=== PATIENT | male | born 1950 | race Caucasian/White ===

== ENCOUNTER 2020-06-05 08:53 | Outpatient (REF) | payer MEDICARE, MEDICAID, OTHER, SELFPAY ==
[2020-06-05 10:22] LABS: Alanine Aminotransferase 71 U/L (0-40); Albumin Level 4.3 g/dL (3.5-5.0); Alkaline Phosphatase 90 U/L (39-117); Anion Gap 14 (12-20); Aspartate Amino Transferase 41 U/L (5-37); Bilirubin Direct 0.4 mg/dL (0.0-0.5); Bilirubin Total 0.9 mg/dL (0.0-1.0); Blood Urea Nitrogen 18 mg/dL (9-16); Calcium 9.7 mg/dL (8.4-10.2); Carbon Dioxide 30 mmol/L (22-29); Chloride 102 mmol/L (96-108); Cholesterol 131 mg/dL; Estimated Glomerular Filt Rate 56; Glucose Random 103 mg/dL (60-115); HDL Cholesterol 37 mg/dL; LDL Cholesterol Calculated 70 mg/dl; Potassium 4.5 mmol/L (3.3-5.1); Sodium 141 mmol/L (135-145); Triglycerides 121 mg/dL
== END 2020-06-05 08:54 | disposition home or self-care (01) ==
LOC: HO.LAB 08:53
PROVIDERS: PCP Internal Medicine; Visit Provider Internal Medicine
DX: I10 Essential (primary) hypertension (principal)
CPT/HCPCS: 36415; 80048; 80061; 80076

== ENCOUNTER 2020-06-28 08:38 | Outpatient (REF) | payer MEDICARE, MEDICAID, SELFPAY ==
--- NOTE | ~2020-06-28 | US_ITS ---
EXAMINATION: US ABDOMEN COMPLETE CLINICAL INFORMATION: Abnormal LFTs. COMPARISON: None TECHNIQUE: Real-time imaging of the abdominal viscera. FINDINGS: PANCREAS: The pancreas is partially obscured. ABDOMINAL AORTA: The proximal, mid, and distal segments are normal in caliber. INFERIOR VENA CAVA: Visualized portions are normal. LIVER: The liver is normal in size. The liver contour is normal. Parenchymal echogenicity is increased and slightly heterogeneous. No focal hepatic lesion. There is no intrahepatic biliary duct dilatation seen. GALLBLADDER: Normal. The gallbladder is physiologically distended without evidence of stones, sludge, polyps, wall thickening or pericholecystic fluid. COMMON BILE DUCT: Normal in caliber measuring 0.5 cm in diameter. RIGHT KIDNEY: Normal. No hydronephrosis. No renal calculi or focal parenchymal lesions. The kidney measures 10.5 cm in maximum dimension. LEFT KIDNEY: Normal. No hydronephrosis. No renal calculi or focal parenchymal lesions. The kidney measures 10.0 cm in maximum dimension. SPLEEN: Normal. The spleen measures 9.1 cm in maximum dimension. FREE FLUID: None. US/US abdomen complete IMPRESSION: Hepatic steatosis without focal lesion. The liver is slightly heterogenous. No focal lesion seen aerated Rest of the abdominal ultrasound is unremarkable
== END 2020-06-28 08:39 | disposition home or self-care (01) ==
LOC: HO.US 08:38
PROVIDERS: PCP Internal Medicine; Visit Provider Internal Medicine
DX: R79.89 Other specified abnormal findings of blood chemistry (principal)
CPT/HCPCS: 76700

== ENCOUNTER 2020-10-08 09:08 | Outpatient (REF) | payer MEDICARE, MEDICAID, OTHER, SELFPAY ==
--- NOTE | ~2020-10-08 | XR_ITS ---
EXAMINATION: XR BILATERAL HIPS WITH AP PELVIS CLINICAL INFORMATION: Left low quadrant pain. COMPARISON: None. TECHNIQUE: AP film of the pelvis and 2 views of both hips. FINDINGS: There is no evidence of acute fracture or diastases the pelvis. No suspicious bony lesions identified. Visualized bowel loops are unremarkable. Hip joint spaces are maintained. No significant degenerative change of the sacroiliac joints is appreciated. 2 views of the right hip do not demonstrate any evidence of acute fracture or dislocation. Joint spaces maintained. No lytic or sclerotic lesions are appreciated. There is no evidence of acute fracture or dislocation of the left hip. Left hip joint spaces maintained. There appears be subchondral cysts about the superior aspect of the femoral head. XR/XR hip BI w PEL1V IMPRESSION: No significant bony abnormality of the AP pelvis and both hips.
== END 2020-10-08 09:09 | disposition home or self-care (01) ==
LOC: HO.XRAY 09:08
PROVIDERS: PCP Internal Medicine; Visit Provider Internal Medicine
DX: M54.5 Low back pain (principal); R10.32 Left lower quadrant pain; G89.29 Other chronic pain
CPT/HCPCS: 73521; 99202

== ENCOUNTER → 2020-10-29 11:23 | Outpatient (BNVA) | payer MEDICARE, OTHER, SELFPAY | PROVIDERS: PCP Internal Medicine; Visit Provider Internal Medicine | DX: M54.42 Lumbago with sciatica, left side (principal); G89.29 Other chronic pain | CPT/HCPCS: Q3014 ==

== ENCOUNTER 2020-11-08 19:27 | Outpatient (REF) | payer MEDICARE, OTHER, SELFPAY ==
--- NOTE | ~2020-11-08 | MR_ITS ---
EXAMINATION: MR LUMBAR SPINE WITHOUT CONTRAST CLINICAL INFORMATION: Low back pain. COMPARISON: Plain films of the lumbar spine 12/24/2018. TECHNIQUE: MRI of the lumbar spine was obtained using routine sequences without contrast. FINDINGS: VERTEBRAL BODIES AND PARASPINAL STRUCTURES: There is a mild levoscoliosis. There is a mild retrolisthesis of L4 on L5. There is narrowing of intervertebral disc height at L5-S1. Loss of signal from the discs is seen between L2-L3 and L5-S1. There is a Schmorl's node in the inferior endplate of L2 with surrounding edematous signal. A similar, less intense Schmorl's node is seen along the inferior endplate of L4. Vertebral body heights are maintained. There are no acute fractures. Overall, marrow signal is homogenous. The urinary bladder is partially distended with a mildly thickened wall. CONUS MEDULLARIS AND CAUDA EQUINA: Normal, terminating at the level of T12-L1. The lower thoracic spinal cord appears normal. The cauda equina nerve roots and filum terminale appear normal. SPINAL LEVELS: L1-L2: The facet joints appear normal bilaterally. Disc contour is normal. There is no central stenosis or foraminal narrowing. L2-L3: There is mild bilateral facet arthropathy. There is a mild diffuse disc bulge, but there is no central stenosis and the neural foramina are patent bilaterally. L3-L4: There is mild to moderate bilateral facet arthropathy with ligamenta flava hypertrophy and facet joint effusions. There is a mild diffuse disc bulge, without central stenosis or foraminal narrowing. L4-L5: There is moderate bilateral facet arthropathy with ligamenta flava hypertrophy and facet joint effusions. There is a posterior disc protrusion extending into the right neural foramen without definite exiting nerve root impingement. There is mild narrowing of the subarticular recesses. There is no central stenosis. L5-S1: There is mild to moderate bilateral facet arthropathy. There is a posterior disc protrusion which is focally more prominent just to the left of midline without definite impingement on the S1 nerve roots. A small protrusion is seen in the inferior right neural foramen without definite exiting nerve root impingement. There is no central stenosis. MR/MR lumbar spine wo con IMPRESSION: 1. At L4-L5 there is moderate facet arthropathy, and there is a posterior disc protrusion extending into the right neural foramen without definite exiting nerve root impingement. There is mild narrowing of the bilateral subarticular recesses, but there is no central stenosis. 2. At L5-S1 there is facet arthropathy and there is a posterior disc protrusion, which is focally more prominent just to the left of midline. There is no impingement on the right exiting L5 or traversing S1 nerve roots. There is no central stenosis.
== END 2020-11-08 19:28 | disposition home or self-care (01) ==
LOC: HO.MRI 19:27
PROVIDERS: PCP Internal Medicine; Visit Provider Anesthesiology
DX: M54.5 Low back pain (principal)
CPT/HCPCS: 72148

== ENCOUNTER → 2020-11-26 11:23 | Outpatient (BNVA) | payer MEDICARE, OTHER, SELFPAY | PROVIDERS: PCP Internal Medicine; Visit Provider Internal Medicine | DX: M54.16 Radiculopathy, lumbar region (principal); M47.817 Spondylosis without myelopathy or radiculopathy, lumbosacral region | CPT/HCPCS: Q3014 ==

== ENCOUNTER 2020-12-08 06:36 | Outpatient (REF) | payer MEDICARE, OTHER, SELFPAY ==
--- NOTE | ~2020-12-08 | FL_ITS ---
EXAMINATION: XR FLUOROSCOPY WITH IMAGES CLINICAL INFORMATION: M47.817 - Spondylosis without myelopathy or radiculopathy COMPARISON: MR lumbar spine 11/08/2020 TECHNIQUE: Fluoroscopy performed by Dr. Ta Giordano. Fluoroscopy time: 0.7 minutes DAP: 3.74 Gycm2 Images: 6 FINDINGS: There are spinal needles overlying the bilateral lower lumbar neural foramen. There is some trace contrast seen in the nerve sheaths. Some early transforaminal epidural extension is suggested. No visible vascular communication. FL/FL guidance in treatment room IMPRESSION: Fluoroscopy for pain management procedures.
== END 2020-12-08 06:37 | disposition home or self-care (01) ==
LOC: HO.RADIR 06:36
PROVIDERS: Visit Provider Internal Medicine
DX: M47.817 Spondylosis without myelopathy or radiculopathy, lumbosacral region (principal)
CPT/HCPCS: 64493; 64494; J1040; Q9967

== ENCOUNTER → 2021-01-07 08:51 | Outpatient (BNVA) | payer MEDICARE, OTHER, SELFPAY | PROVIDERS: PCP Internal Medicine; Visit Provider Internal Medicine | DX: M47.817 Spondylosis without myelopathy or radiculopathy, lumbosacral region (principal); M54.16 Radiculopathy, lumbar region | CPT/HCPCS: 99212 ==

== ENCOUNTER 2021-01-26 05:45 | Outpatient (REF) | payer MEDICARE, OTHER, SELFPAY ==
--- NOTE | ~2021-01-26 | FL_ITS ---
EXAMINATION: XR FLUOROSCOPY WITH IMAGES CLINICAL INFORMATION: Spondylosis without myelopathy or radiculopathy. COMPARISON: None. TECHNIQUE: Fluoroscopy performed by Lety Benito. Fluoroscopy time: 0.2 minutes DAP: 2.77 Gycm2 Images: 2 FINDINGS: There are 2 images of lumbar spine revealing posterior needle positioned and contrast opacifying the right epidural space at the L4-L5 disc level. On both oblique views, there is no left-sided pars defect. No lytic process. The vertebral heights and alignment and disc heights are normal. FL/FL guidance in treatment room IMPRESSION: Fluoroscopy was provided to referring physician for pain management.
== END 2021-01-26 05:46 | disposition home or self-care (01) ==
LOC: HO.RADIR 05:45
PROVIDERS: Visit Provider Internal Medicine
DX: M47.27 Other spondylosis with radiculopathy, lumbosacral region (principal)
CPT/HCPCS: 62321; J1040; Q9967

== ENCOUNTER → 2021-02-25 08:18 | Outpatient (BNVA) | payer MEDICARE, OTHER, SELFPAY | PROVIDERS: PCP Internal Medicine; Visit Provider Internal Medicine | DX: M47.817 Spondylosis without myelopathy or radiculopathy, lumbosacral region (principal) | CPT/HCPCS: 99212 ==

== ENCOUNTER 2021-03-23 05:59 | Outpatient (REF) | payer MEDICARE, OTHER, SELFPAY ==
--- NOTE | ~2021-03-23 | FL_ITS ---
EXAMINATION: XR FLUOROSCOPY WITH IMAGES CLINICAL INFORMATION: M47.817 - Spondylosis without myelopathy or radiculopathy COMPARISON: MR lumbar spine 11/08/2020 TECHNIQUE: Fluoroscopy performed by Dr. Ta Giordano. Fluoroscopy time: 0.7 minutes DAP: 8.72 Gycm2 Images: 4 FINDINGS: There are spinal needles overlying the outer left L3, L4, and L5 neural foramen. There are degenerative changes in the spine with bridging right lateral osteophyte L4-L5. FL/FL guidance in treatment room IMPRESSION: Fluoroscopy for pain management procedures.
== END 2021-03-23 06:00 | disposition home or self-care (01) ==
LOC: HO.RADIR 05:59
PROVIDERS: Visit Provider Internal Medicine
DX: M47.817 Spondylosis without myelopathy or radiculopathy, lumbosacral region (principal)
CPT/HCPCS: 64635

== ENCOUNTER → 2021-04-28 08:26 | Outpatient (BNVA) | payer MEDICARE, MEDICAID, SELFPAY | PROVIDERS: PCP Internal Medicine; Visit Provider Nurse Practitioner Family | DX: M47.817 Spondylosis without myelopathy or radiculopathy, lumbosacral region (principal); M54.16 Radiculopathy, lumbar region; M53.3 Sacrococcygeal disorders, not elsewhere classified; R10.32 Left lower quadrant pain; G89.29 Other chronic pain | CPT/HCPCS: 99212 ==

== ENCOUNTER → 2021-06-09 09:13 | Outpatient (BNVA) | payer MEDICARE, MEDICAID, SELFPAY | PROVIDERS: PCP Internal Medicine; Visit Provider Nurse Practitioner Family | DX: M53.3 Sacrococcygeal disorders, not elsewhere classified (principal); M47.817 Spondylosis without myelopathy or radiculopathy, lumbosacral region; M54.16 Radiculopathy, lumbar region | CPT/HCPCS: 99212 ==

== ENCOUNTER 2021-08-03 06:20 | Outpatient (REF) | payer MEDICARE, MEDICAID, SELFPAY ==
--- NOTE | ~2021-08-03 | FL_ITS ---
EXAMINATION: XR FLUOROSCOPY WITH IMAGES CLINICAL INFORMATION: Radiculopathy. COMPARISON: None TECHNIQUE: Fluoroscopy performed by Archana Tanner. Fluoroscopy time: 0.8 minutes DAP: 3.89 Gycm2 Images: 2 FINDINGS: There is a needle positioned inferior to the L4 pedicles on both sides with contrast opacifying the epidural space for pain management. Visualized bones and the disc levels are normal. FL/FL guidance in treatment room IMPRESSION: Fluoroscopy guidance was provided to the referrer for pain management.
== END 2021-08-03 06:21 | disposition home or self-care (01) ==
LOC: HO.RADIR 06:20
PROVIDERS: Visit Provider Internal Medicine
DX: M54.16 Radiculopathy, lumbar region (principal)
CPT/HCPCS: 64483; 64484; J1100; Q9967

== ENCOUNTER → 2021-09-02 10:01 | Outpatient (BNVA) | payer MEDICARE, MEDICAID, SELFPAY | PROVIDERS: PCP Internal Medicine; Visit Provider Nurse Practitioner Family | DX: Z13.89 Encounter for screening for other disorder (principal) | CPT/HCPCS: Q3014 ==

== ENCOUNTER 2021-10-12 07:31 | Outpatient (REF) | payer MEDICARE, MEDICAID, SELFPAY ==
--- NOTE | ~2021-10-12 | FL_ITS ---
EXAMINATION: XR FLUOROSCOPY WITH IMAGES CLINICAL INFORMATION: M53.3 - Sacrococcygeal disorders, not elsewhere classified COMPARISON: None. TECHNIQUE: Fluoroscopy performed by Dr. Ta Giordano. Fluoroscopy time: 0.5 minutes DAP: 1.43 Gycm2 Images: 2 FINDINGS: Spinal needle overlies mid left SI joint at appropriate depth. FL/FL guidance in treatment room IMPRESSION: Fluoroscopy for pain management procedure.
== END 2021-10-12 07:32 | disposition home or self-care (01) ==
LOC: HO.RADIR 07:31
PROVIDERS: Visit Provider Internal Medicine
DX: M53.3 Sacrococcygeal disorders, not elsewhere classified (principal)
CPT/HCPCS: 27096; J1020; J2795

== ENCOUNTER → 2021-10-14 11:39 | Outpatient (BNVA) | payer MEDICARE, MEDICAID, SELFPAY | PROVIDERS: PCP Internal Medicine; Visit Provider Nurse Practitioner Family | DX: M47.817 Spondylosis without myelopathy or radiculopathy, lumbosacral region (principal); M54.16 Radiculopathy, lumbar region; M53.3 Sacrococcygeal disorders, not elsewhere classified; R10.32 Left lower quadrant pain; G89.29 Other chronic pain | CPT/HCPCS: Q3014 ==

== ENCOUNTER → 2021-10-27 15:59 | Outpatient (BNVA) | payer MEDICARE, MEDICAID, SELFPAY | PROVIDERS: PCP Internal Medicine; Visit Provider Nurse Practitioner Family | DX: M47.27 Other spondylosis with radiculopathy, lumbosacral region (principal) | CPT/HCPCS: Q3014 ==

== ENCOUNTER 2021-11-03 10:28 | Outpatient (REF) | payer MEDICARE, MEDICAID, SELFPAY ==
--- NOTE | ~2021-11-03 | XR_ITS ---
EXAMINATION: XR KNEE, RIGHT CLINICAL INFORMATION: Pain. COMPARISON: None TECHNIQUE: Four views of the right knee. FINDINGS: There is mild loss of patellofemoral and medial compartment joint space. No visible acute fracture, dislocation or subluxation seen. There are no loose bodies. No bony erosive changes. The soft tissues are normal. XR/XR knee RT 3V IMPRESSION: Mild degenerative changes medial and patellofemoral compartment. No visible acute fracture or dislocation seen.
[2021-11-03 11:02] LABS: MANUAL DIFF FLAG NO
[2021-11-03 11:25] LABS: Basophils Percent Auto 0.5 % (0-2); Eosinophils Absolute Auto 0.2 X10*3/uL (0.0-0.4); Eosinophils Percent Auto 1.9 % (0-4); Hematocrit 48.3 % (42.0-52.0); Hemoglobin 15.7 g/dl (14.0-18.0); Imm Gran Abs Auto 0.03 X10*3/uL (0.00-0.03); Imm Gran Pct Auto 0.4 % (0.0-0.4); Lymphocytes Absolute Auto 2.4 X10*3/uL (1.2-4.9); Lymphocytes Percent Auto 27.8 % (20-40); Mean Corpuscular HGB Conc 32.5 g/dl (31.0-36.0); Mean Corpuscular Hemoglobin 26.7 pg (27.0-33.0); Mean Platelet Volume 9.5 fL (9.4-12.4); Monocytes Absolute Auto 0.8 X10*3/uL (0.1-1.2); Monocytes Percent Auto 8.9 % (2-11); Neutrophils Absolute Auto 5.2 x10*3/uL (2.0-8.3); Neutrophils Percent Auto 60.5 % (45-73); Platelet Count 252 X10*3/uL (160-400); Red Blood Count 5.89 X10*6/uL (4.60-5.80); Red Cell Distribution Width 13.1 % (11.0-16.0); White Blood Count 8.5 X10*3/uL (4.8-10.8)
[2021-11-03 11:33] LABS: Estimated Average Glucose 117 mg/dL; Hemoglobin A1c % 5.7 %
[2021-11-03 12:05] LABS: Alanine Aminotransferase 33 U/L (0-40); Albumin Level 4.3 g/dL (3.5-5.0); Alkaline Phosphatase 101 U/L (39-117); Anion Gap 13 (12-20); Aspartate Amino Transferase 23 U/L (5-37); Bilirubin Direct 0.4 mg/dL (0.0-0.5); Blood Urea Nitrogen 16 mg/dL (9-16); Calcium 10.2 mg/dL (8.4-10.2); Carbon Dioxide 30 mmol/L (22-29); Chloride 103 mmol/L (96-108); Cholesterol 162 mg/dL; Estimated Glomerular Filt Rate 54; Glucose Random 114 mg/dL (60-115); HDL Cholesterol 40 mg/dL; LDL Cholesterol Calculated 93 mg/dl; Potassium 5.2 mmol/L (3.3-5.1); Sodium 141 mmol/L (135-145); Total Protein 7.1 g/dL (6.5-8.0); Triglycerides 148 mg/dL
[2021-11-03 12:26] LABS: TSH reflex Free T4 1.08 uIU/mL (0.32-4.0)
== END 2021-11-03 10:29 | disposition home or self-care (01) ==
LOC: HO.XRAY 10:28
PROVIDERS: PCP Internal Medicine; Visit Provider Internal Medicine
DX: M25.561 Pain in right knee (principal); E78.5 Hyperlipidemia, unspecified; I10 Essential (primary) hypertension
CPT/HCPCS: 36415; 73562; 80048; 80061; 80076; 83036; 84443; 85025

== ENCOUNTER 2021-11-25 06:20 | Outpatient (REF) | payer MEDICARE, MEDICAID, SELFPAY ==
--- NOTE | ~2021-11-25 | FL_ITS ---
EXAMINATION: XR FLUOROSCOPY WITH IMAGES CLINICAL INFORMATION: M54.16 - Radiculopathy, lumbar region COMPARISON: MR lumbar spine 11/08/2020 TECHNIQUE: Fluoroscopy performed by Dr. Ta Giordano. Fluoroscopy time: 0.4 minutes. Cumulative Dose: 7.39 mGy. DAP: 0.0612 Gy-cm2. Images: 2. FINDINGS: There is a spinal needle overlying the outer right L5 neural foramen. There is contrast seen in the respective nerve sheath. Some early transforaminal epidural extension is suggested. No visible vascular communication. FL/FL guidance in treatment room IMPRESSION: Fluoroscopy for pain management procedures.
== END 2021-11-25 06:21 | disposition home or self-care (01) ==
LOC: HO.RADIR 06:20
PROVIDERS: Visit Provider Internal Medicine
DX: M54.16 Radiculopathy, lumbar region (principal)
CPT/HCPCS: 64483

== ENCOUNTER → 2021-12-21 08:56 | Outpatient (BNVA) | payer MEDICARE, MEDICAID, SELFPAY | PROVIDERS: PCP Internal Medicine; Visit Provider Nurse Practitioner Family | DX: M47.817 Spondylosis without myelopathy or radiculopathy, lumbosacral region (principal); M54.16 Radiculopathy, lumbar region | CPT/HCPCS: 99212 ==

== ENCOUNTER 2021-12-30 07:20 | Outpatient (REF) | payer MEDICARE, MEDICAID, SELFPAY ==
--- NOTE | ~2021-12-30 | XR_ITS ---
EXAMINATION: XR KNEE AP STANDING X-ray right knee CLINICAL INFORMATION: Knee pain COMPARISON: X-ray 11/03/2021 TECHNIQUE: AP bilateral standing view of the knees was obtained. FINDINGS: Right knee: Mild medial compartment and patellofemoral compartment joint space loss. No evidence of acute fracture or dislocation. No significant joint effusion. No loose bodies are seen. No abnormal soft tissue calcification. Left knee: No acute findings on a single radiograph. Joint spaces are relatively maintained. XR/XR knee standing BI IMPRESSION: Right knee: Mild medial and patellofemoral compartment arthritis. No evidence of acute fracture.
--- NOTE | ~2021-12-30 | XR_ITS ---
EXAMINATION: XR KNEE AP STANDING X-ray right knee CLINICAL INFORMATION: Knee pain COMPARISON: X-ray 11/03/2021 TECHNIQUE: AP bilateral standing view of the knees was obtained. FINDINGS: Right knee: Mild medial compartment and patellofemoral compartment joint space loss. No evidence of acute fracture or dislocation. No significant joint effusion. No loose bodies are seen. No abnormal soft tissue calcification. Left knee: No acute findings on a single radiograph. Joint spaces are relatively maintained. XR/XR knee RT 1V IMPRESSION: Right knee: Mild medial and patellofemoral compartment arthritis. No evidence of acute fracture.
== END 2021-12-30 07:21 | disposition home or self-care (01) ==
LOC: HO.HOSX 07:20
PROVIDERS: Visit Provider Physician Assistant
DX: M17.11 Unilateral primary osteoarthritis, right knee (principal); M25.562 Pain in left knee
CPT/HCPCS: 20610; 73560; 73565; 99212; J1040

== ENCOUNTER → 2022-01-18 08:51 | Outpatient (BNVA) | payer MEDICARE, MEDICAID, SELFPAY | PROVIDERS: PCP Internal Medicine; Referring Provider Internal Medicine; Visit Provider Nurse Practitioner | DX: Z01.818 Encounter for other preprocedural examination (principal); Z98.890 Other specified postprocedural states | CPT/HCPCS: 99202 ==

== ENCOUNTER → 2022-03-01 09:11 | Outpatient (BNVA) | payer MEDICARE, MEDICAID, SELFPAY | PROVIDERS: PCP Internal Medicine; Visit Provider Nurse Practitioner | DX: Z12.11 Encounter for screening for malignant neoplasm of colon (principal) | CPT/HCPCS: 99212 ==

== ENCOUNTER 2022-03-08 11:01 | Outpatient (REF) | payer MEDICARE, MEDICAID, SELFPAY ==
--- NOTE | ~2022-03-08 | XR_ITS ---
EXAMINATION: XR SHOULDER, LEFT CLINICAL INFORMATION: Pain. COMPARISON: None TECHNIQUE: AP external rotation, Grashey, scapular Y, and axillary views of the left shoulder. FINDINGS: No acute fracture or subluxation. Moderate joint space narrowing, subcortical sclerosis and proliferative changes on the left acromioclavicular joint. Small well-corticated calcific body adjacent to the greater tuberosity of the left humerus. The included portions of the left-sided ribs and left lung are within normal limits. XR/XR shoulder LT min 2V IMPRESSION: 1. No acute fracture or subluxation. 2. 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 3. Small calcific body adjacent to the greater tuberosity of the left humerus suggesting calcific tendinosis.
== END 2022-03-08 11:02 | disposition home or self-care (01) ==
LOC: HO.XRAY 11:01
PROVIDERS: PCP Internal Medicine; Visit Provider Internal Medicine
DX: M25.512 Pain in left shoulder (principal)
CPT/HCPCS: 73030

== ENCOUNTER 2022-05-19 15:57 | Outpatient (REF) | payer MEDICARE, MEDICAID, SELFPAY ==
--- NOTE | ~2022-05-19 | US_ITS ---
EXAMINATION: US SOFT TISSUE OF THE NECK CLINICAL INFORMATION: Neck swelling. COMPARISON: None TECHNIQUE: Ultrasound neck soft tissues is targeted to the area of clinical concern using grayscale imaging and color Doppler with linear transducer. Area of concern corresponds to the posterior left neck. Patient is able to point to area of concern at time of imaging. FINDINGS: There is no cystic or solid mass or architectural abnormality. No adenopathy. No skin thickening or edema tracking in soft tissues. No hyperemia on color Doppler. If there is still clinical concern for occult palpable fullness or mass, further assessment may be considered with CT or MRI with contrast. US/US soft tiss head and/or neck IMPRESSION: -Unremarkable targeted ultrasound. -No visible mass or adenopathy.
== END 2022-05-19 15:58 | disposition home or self-care (01) ==
LOC: HO.US 15:57
PROVIDERS: PCP Internal Medicine; Visit Provider Student in an Organized Health Care Education/Training Program
DX: R22.1 Localized swelling, mass and lump, neck (principal)
CPT/HCPCS: 76536

== ENCOUNTER 2023-03-27 13:44 | Outpatient (REF) | payer MEDICARE, MEDICAID, SELFPAY ==
--- NOTE | ~2023-03-27 | XR_ITS ---
STUDY: Lumbar spine, AP pelvis and bilateral hips INDICATION: Bilateral hip pain, lumbar radiculopathy COMPARISON: 12/24/18 lumbar spine FINDINGS: Lumbar spine: Lumbar lordotic straightening. 5 lumbar type vertebral bodies are identified and are maintained in height. Mild L4-L5 and L5-S1 disc space narrowings. Lower lumbar facet hypertrophic changes. Pedicles and SI joints within normal limits. No significant hip joint narrowings. Vascular calcifications. Pelvis and bilateral hips: Degenerative changes lower lumbar spine. SI joints within normal limits.. Hip joints are maintained. No fracture or dislocation. Pelvic soft tissue density likely bladder. XR/XR lumbar spine 2-3V IMPRESSION: Lumbar lordotic straightening, mild L4-L5 and L5-S1 disc disease. Unremarkable pelvis and bilateral hips.
--- NOTE | ~2023-03-27 | XR_ITS ---
STUDY: Lumbar spine, AP pelvis and bilateral hips INDICATION: Bilateral hip pain, lumbar radiculopathy COMPARISON: 12/24/18 lumbar spine FINDINGS: Lumbar spine: Lumbar lordotic straightening. 5 lumbar type vertebral bodies are identified and are maintained in height. Mild L4-L5 and L5-S1 disc space narrowings. Lower lumbar facet hypertrophic changes. Pedicles and SI joints within normal limits. No significant hip joint narrowings. Vascular calcifications. Pelvis and bilateral hips: Degenerative changes lower lumbar spine. SI joints within normal limits.. Hip joints are maintained. No fracture or dislocation. Pelvic soft tissue density likely bladder. XR/XR hip BI w PEL1V IMPRESSION: Lumbar lordotic straightening, mild L4-L5 and L5-S1 disc disease. Unremarkable pelvis and bilateral hips.
== END 2023-03-27 13:45 | disposition home or self-care (01) ==
LOC: HO.XRAY 13:44
PROVIDERS: PCP Internal Medicine; Visit Provider Nurse Practitioner Family
DX: M54.16 Radiculopathy, lumbar region (principal); M47.817 Spondylosis without myelopathy or radiculopathy, lumbosacral region; M25.551 Pain in right hip; M25.552 Pain in left hip; G89.29 Other chronic pain; M54.51 Vertebrogenic low back pain; M53.3 Sacrococcygeal disorders, not elsewhere classified
CPT/HCPCS: 72100; 73521; 99212

== ENCOUNTER 2023-03-27 13:44 | Outpatient (AMB) | payer MEDICARE, MEDICAID, SELFPAY ==
--- NOTE | 2023-03-27 14:02 | A.OFFVIS_ITS ---
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 He was last seen in our office in November 2021. Reports pain has been worsening for the past 6 months. Denies any recent trauma, injury or falls. Lumbar flexion and extension reproduce moderate to severe pain. SLR testing reproduces right leg pain with numbness and tingling radiating into his right buttock, lateral and anterior thigh and lateral riddle and into his toes. Reports intermittent RLE weakness. He has hard time getting up if he bends down. Walking and standing are limited due to pain. Minimal symptom relief with sitting but has to constantly readjusts his positioning. Patient reports celecoxib and gabapentin have been partially helpful, and would like refills for these medications. Patient has undergone multiple interventional treatments in the past 2 years in our office with 50-60% pain relief. We will proceed with updating his lumbar spine MRI and hip xray imaging prior to any further treatments. Patient denies any fever, chills, weight loss, abdominal pain, bladder or bowel dysfunction or saddle anesthesia. Past Procedures: 11/25/21: Right L5-S1 TFESI-50% for 4 we eks 12/08/20:?Bilateral L4,L5 joint aspirati on and Intra-articular facet steroid injection ? More than 60% relief on the left side, and about 40% relief on the right side which lasted approximately 4 weeks.??? 01/26/21:?Right Parasagittal L4-L5 Inter laminar JAMEEL ? 60% relief on the right side 03/23/21:??Left L3-L4-L5 MBB RFA w/ fluo ro- 50%?? 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 Alert and oriented. Mood and affect appropriate. Follows and participates in conversation appropriately. Respiratory effort is unlabored. Able to transition from sit to stand unassisted. Ambulates with bilaterally normal heel strike and toe off, reports imbalance on right side. Back/Spine/Pelvis Cervical Spine: cervical ROM normal and No Cervical spine tenderness Thoracic/Lumbar Spine: thoracic and lumbar spine normal to inspection, No Thoracic/lumbar spine scar(s), Lasegue's sign positive on the right and localized, pain with thoraco-lumbar ROM, paraspinal muscle tenderness on the left greater than right, thoraco-lumbar ROM limited, No thoracic spinal tenderness, lumbar spinal tenderness (L4-S1) and straight leg raise positive right at 40 degrees Pelvis: buttock tenderness on the right and sciatic notch tenderness on the right Sacroiliac joints: on the right nontender and on the left (+Tereso's, +Pelvic compression, +Gaenslen) tender to palpation Extrem General: Yes capillary refill normal, Yes no clubbing, cyanosis or edema and Yes no calf tenderness Results Reviewed Results Reviewed: MR LUMBAR SPINE WITHOUT CONTRAST 11/08/20 CLINICAL INFORMATION: Low back pain. COMPARISON: Plain films of the lumbar spine 12/24/2018. FINDINGS: VERTEBRAL BODIES AND PARASPINAL STRUCTURES: There is a mild levoscoliosis. There is a mild retrolisthesis of L4 on L5. There is narrowing of intervertebral disc height at L5-S1. Loss of signal from the discs is seen between L2-L3 and L5-S1. There is a Schmorl's node in the inferior endplate of L2 with surrounding edematous signal. A similar, less intense Schmorl's node is seen along the inferior endplate of L4. Vertebral body heights are maintained. There are no acute fractures. Overall, marrow signal is homogenous. The urinary bladder is partially distended with a mildly thickened wall. CONUS MEDULLARIS AND CAUDA EQUINA: Normal, terminating at the level of T12-L1. The lower thoracic spinal cord appears normal. The cauda equina nerve roots and filum terminale appear normal. SPINAL LEVELS: L1-L2: The facet joints appear normal bilaterally. Disc contour is normal. There is no central stenosis or foraminal narrowing. L2-L3: There is mild bilateral facet arthropathy. There is a mild diffuse disc bulge, but there is no central stenosis and the neural foramina are patent bilaterally. L3-L4: There is mild to moderate bilateral facet arthropathy with ligamenta flava hypertrophy and facet joint effusions. There is a mild diffuse disc bulge, without central stenosis or foraminal narrowing. L4-L5: There is moderate bilateral facet arthropathy with ligamenta flava hypertrophy and facet joint effusions. There is a posterior disc protrusion extending into the right neural foramen without definite exiting nerve root impingement. There is mild narrowing of the subarticular recesses. There is no central stenosis. L5-S1: There is mild to moderate bilateral facet arthropathy. There is a posterior disc protrusion which is focally more prominent just to the left of midline without definite impingement on the S1 nerve roots. A small protrusion is seen in the inferior right neural foramen without definite exiting nerve root impingement. There is no central stenosis. IMPRESSION: 1. At L4-L5 there is moderate facet arthropathy, and there is a posterior disc protrusion extending into the right neural foramen without definite exiting nerve root impingement. There is mild narrowing of the bilateral subarticular recesses, but there is no central stenosis. 2. At L5-S1 there is facet arthropathy and there is a posterior disc protrusion, which is focally more prominent just to the left of midline. There is no impingement on the right exiting L5 or traversing S1 nerve roots. There is no central stenosis. Assessment & Plan Assessment & Plan (1) Bilateral hip pain: Code(s): M25.551 - Pain in right hip; M25.552 - Pain in left hip (2) Lumbar radiculopathy: Code(s): M54.16 - Radiculopathy, lumbar region (3) Lumbar and sacral spondyloarthritis: Code(s): M47.817 - Spondylosis without myelopathy or radiculopathy, lumbosacral region (4) Vertebrogenic low back pain: Code(s): M54.51 - Vertebrogenic low back pain (5) Sacroiliac joint dysfunction of left side: Code(s): M53.3 - Sacrococcygeal disorders, not elsewhere classified Plan MRI of the lumbar spine to assess for neural integrity and compression. Will update lumbar spine and hip xrays to assess degenerative changes prior to any further interventional treatments. Refill provided for celecoxib. Continue gabapentin. I will also provide short script for tramadol for severe pain (7-10/10 levels) while he awaits to be scheduled for MRI. Patient will return to the clinic to discuss results of the MRI findings when it is done and consider interventional therapy vs Neurosurgery evaluation as indicated. All questions and concerns have been answered and patient agreed with the plan. Follow up for MRI results and sooner if needed. Orders: Orders XR lumbar spine 2-3V Today M47.817 - Spondylosis without myelopathy or radiculopathy, lumbosacral region, M54.16 - Radiculopathy, lumbar region XR hip BI w PEL1V Today G89.29 - Other chronic pain, M25.551 - Pain in right hip, M25.552 - Pain in left hip, R10.32 - Left lower quadrant pain MR lumbar spine wo con Today M47.817 - Spondylosis without myelopathy or radiculopathy, lumbosacral region, M54.16 - Radiculopathy, lumbar region Medications: New tramadol 50 mg PO BID PRN 20 tabs 0RF pain 10 days M25.551 - Pain in right hip, M25.552 - Pain in left hip, M47.817 - Spondylosis without myelopathy or radiculopathy, lumbosacral region Refilled celecoxib 100 mg PO BID 60 caps 5RF Coding Level of Care Code Est Pt Level 4 (78378) Diagnoses Bilateral hip pain M25.551; M25.552 Lumbar radiculopathy M54.16 Lumbar and sacral spondyloarthritis M47.817 Vertebrogenic low back pain M54.51 Sacroiliac joint dysfunction of left side M53.3
[2023-03-27 14:12] VITALS: BP 159/92; PULSE 67; O2SAT 98; BMI 28.2
== END 2023-03-27 14:39 | disposition home or self-care (01) ==
PROVIDERS: PCP Internal Medicine; Visit Provider Nurse Practitioner Family
DX: M25.551 Pain in right hip (principal); M25.552 Pain in left hip; M54.16 Radiculopathy, lumbar region; M47.817 Spondylosis without myelopathy or radiculopathy, lumbosacral region; M54.51 Vertebrogenic low back pain; M53.3 Sacrococcygeal disorders, not elsewhere classified
CPT/HCPCS: 99214

== ENCOUNTER 2023-04-06 14:16 | Outpatient (AMB) | payer MEDICARE, MEDICAID, SELFPAY ==
--- NOTE | 2023-04-06 14:35 | MHC.OFFVIS ---
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 Denies any recent cough, cold, infection, fever or other significant changes in medical history since last office visit. PRIOR: Patient presents today for follow up for worsening low back pain with radiation into his right leg and left groin and lateral hip pain. He was last seen in our office in November 2021. Reports pain has been worsening for the past 6 months. Denies any recent trauma, injury or falls. Lumbar flexion and extension reproduce moderate to severe pain. SLR testing reproduces right leg pain with numbness and tingling radiating into his right buttock, lateral and anterior thigh and lateral riddle and into his toes. Reports intermittent RLE weakness. He has hard time getting up if he bends down. Walking and standing are limited due to pain. Minimal symptom relief with sitting but has to constantly readjusts his positioning. Patient reports celecoxib and gabapentin have been partially helpful, and would like refills for these medications. Patient has undergone multiple interventional treatments in the past 2 years in our office with 50-60% pain relief. We will proceed with updating his lumbar spine MRI and hip xray imaging prior to any further treatments. Patient denies any fever, chills, weight loss, abdominal pain, bladder or bowel dysfunction or saddle anesthesia. Past Procedures: 11/25/21: Right L5-S1 TFESI-50% for 4 weeks 12/08/20:?Bilateral L4, L5 joint aspiration and Intra-articular facet steroid injection ? More than 60% relief on the left side, and about 40% relief on the right side which lasted approximately 4 weeks.??? 01/26/21:?Right Parasagittal L4-L5 Interlaminar JAMEEL ? 60% relief on the right side 03/23/21:?Left L3-L4-L5 MBB RFA w/ fluoro- 50%?? 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 Alert and oriented. Mood and affect appropriate. Follows and participates in conversation appropriately. Respiratory effort is unlabored. Able to transition from sit to stand unassisted. Ambulates with bilaterally normal heel strike and toe off, reports imbalance on right side. Back/Spine/Pelvis Cervical Spine: cervical muscular tenderness and No Cervical spine tenderness Thoracic/Lumbar Spine: thoracic and lumbar spine normal to inspection, No Thoracic/lumbar spine scar(s), Lasegue's sign positive on the right and localized, pain with thoraco-lumbar ROM, paraspinal muscle tenderness on the left greater than right, thoraco-lumbar ROM limited, No thoracic spinal tenderness, lumbar spinal tenderness (L4-S1) and straight leg raise positive right at 40 degrees Pelvis: buttock tenderness on the right and sciatic notch tenderness on the right Sacroiliac joints: bilaterally (+Tereso's, +Pelvic compression, +Gaenslen) tender to palpation Results Reviewed Results Reviewed: MR LUMBAR SPINE WITHOUT CONTRAST 11/08/20 CLINICAL INFORMATION: Low back pain. COMPARISON: Plain films of the lumbar spine 12/24/2018. FINDINGS: VERTEBRAL BODIES AND PARASPINAL STRUCTURES: There is a mild levoscoliosis. There is a mild retrolisthesis of L4 on L5. There is narrowing of intervertebral disc height at L5-S1. Loss of signal from the discs is seen between L2-L3 and L5-S1. There is a Schmorl's node in the inferior endplate of L2 with surrounding edematous signal. A similar, less intense Schmorl's node is seen along the inferior endplate of L4. Vertebral body heights are maintained. There are no acute fractures. Overall, marrow signal is homogenous. The urinary bladder is partially distended with a mildly thickened wall. CONUS MEDULLARIS AND CAUDA EQUINA: Normal, terminating at the level of T12-L1. The lower thoracic spinal cord appears normal. The cauda equina nerve roots and filum terminale appear normal. SPINAL LEVELS: L1-L2: The facet joints appear normal bilaterally. Disc contour is normal. There is no central stenosis or foraminal narrowing. L2-L3: There is mild bilateral facet arthropathy. There is a mild diffuse disc bulge, but there is no central stenosis and the neural foramina are patent bilaterally. L3-L4: There is mild to moderate bilateral facet arthropathy with ligamenta flava hypertrophy and facet joint effusions. There is a mild diffuse disc bulge, without central stenosis or foraminal narrowing. L4-L5: There is moderate bilateral facet arthropathy with ligamenta flava hypertrophy and facet joint effusions. There is a posterior disc protrusion extending into the right neural foramen without definite exiting nerve root impingement. There is mild narrowing of the subarticular recesses. There is no central stenosis. L5-S1: There is mild to moderate bilateral facet arthropathy. There is a posterior disc protrusion which is focally more prominent just to the left of midline without definite impingement on the S1 nerve roots. A small protrusion is seen in the inferior right neural foramen without definite exiting nerve root impingement. There is no central stenosis. IMPRESSION: 1. At L4-L5 there is moderate facet arthropathy, and there is a posterior disc protrusion extending into the right neural foramen without definite exiting nerve root impingement. There is mild narrowing of the bilateral subarticular recesses, but there is no central stenosis. 2. At L5-S1 there is facet arthropathy and there is a posterior disc protrusion, which is focally more prominent just to the left of midline. There is no impingement on the right exiting L5 or traversing S1 nerve roots. There is no central stenosis. Lumbar spine, AP pelvis and bilateral hips 03/27/23 INDICATION: Bilateral hip pain, lumbar radiculopathy COMPARISON: 12/24/18 lumbar spine FINDINGS: Lumbar spine: Lumbar lordotic straightening. 5 lumbar type vertebral bodies are identified and are maintained in height. Mild L4-L5 and L5-S1 disc space narrowings. Lower lumbar facet hypertrophic changes. Pedicles and SI joints within normal limits. No significant hip joint narrowings. Vascular calcifications. Pelvis and bilateral hips: Degenerative changes lower lumbar spine. SI joints within normal limits.. Hip joints are maintained. No fracture or dislocation. Pelvic soft tissue density likely bladder. IMPRESSION: Lumbar lordotic straightening, mild L4-L5 and L5-S1 disc disease. Unremarkable pelvis and bilateral hips. Assessment & Plan Assessment & Plan (1) Lumbar and sacral spondyloarthritis: Code(s): M47.817 - Spondylosis without myelopathy or radiculopathy, lumbosacral region (2) Muscle spasm: Code(s): M62.838 - Other muscle spasm (3) Lumbar radiculopathy: Code(s): M54.16 - Radiculopathy, lumbar region (4) Vertebrogenic low back pain: Code(s): M54.51 - Vertebrogenic low back pain (5) Sacroiliac joint pain: Code(s): M53.3 - Sacrococcygeal disorders, not elsewhere classified Plan Lumbar spine and hip xrays were discussed with patient and his . Patient continues to endorse axial low back pain with radiation into his sacral areas bilaterally, left>right and both legs with radicular symptoms. Reports muscle stiffness and spasms in his mid to lower back. I will prescribe him methocarbamol, side effects and precautions were reviewed with patient and family. Continue gabapentin. Patient reports minimal relief with short script of tramadol. Pending MRI of the lumbar spine to assess for neural integrity and compression. Patient is also interested in formal course of physical therapy for core strengthening and reduce muscle spasms. All questions and concerns have been answered and patient agreed with the plan. Follow up for MRI results and sooner if needed. Orders: Orders PT Evaluation and Treatment Today M25.551 - Pain in right hip, M25.552 - Pain in left hip, M47.817 - Spondylosis without myelopathy or radiculopathy, lumbosacral region, M54.16 - Radiculopathy, lumbar region, M62.838 - Other muscle spasm Medications: New methocarbamol 750 mg PO BID 30 days PRN 60 tabs 0RF muscle spasm M47.817 - Spondylosis without myelopathy or radiculopathy, lumbosacral region, M62.838 - Other muscle spasm Discontinued tramadol Discontinued Reason: Patient Completed Course 50 mg PO BID 10 days PRN 20 tabs 0RF pain M25.551 - Pain in right hip, M25.552 - Pain in left hip, M47.817 - Spondylosis without myelopathy or radiculopathy, lumbosacral region Coding Level of Care Code Est Pt Level 4 (61813) Diagnoses Lumbar and sacral spondyloarthritis M47.817 Muscle spasm M62.838 Lumbar radiculopathy M54.16 Vertebrogenic low back pain M54.51 Sacroiliac joint pain M53.3
[2023-04-06 14:39] VITALS: BP 121/76; PULSE 86; O2SAT 98; BMI 28.2
== END 2023-04-06 15:08 | disposition home or self-care (01) ==
PROVIDERS: PCP Internal Medicine; Visit Provider Nurse Practitioner Family
DX: M47.817 Spondylosis without myelopathy or radiculopathy, lumbosacral region (principal); M62.838 Other muscle spasm; M54.16 Radiculopathy, lumbar region; M54.51 Vertebrogenic low back pain; M53.3 Sacrococcygeal disorders, not elsewhere classified
CPT/HCPCS: 99214

== ENCOUNTER → 2023-04-06 14:16 | Outpatient (BNVA) | payer MEDICARE, MEDICAID, SELFPAY | PROVIDERS: PCP Internal Medicine; Visit Provider Nurse Practitioner Family | DX: M47.817 Spondylosis without myelopathy or radiculopathy, lumbosacral region (principal); M62.838 Other muscle spasm; M54.16 Radiculopathy, lumbar region; M54.51 Vertebrogenic low back pain; M53.3 Sacrococcygeal disorders, not elsewhere classified | CPT/HCPCS: 99212 ==

== ENCOUNTER 2023-05-30 11:00 | Outpatient (RCR) | payer MEDICARE, OTHER, SELFPAY ==
[2023-04-25 13:07] VITALS: BP 133/86; PULSE 76; O2SAT 98
--- NOTE | 2023-05-07 07:51 | MHC.PT.EP ---
[facility] [place] Office [place] Office [place] Office [address] Srini Phan [address] [phone] F: [phone] F: [phone] F: [phone] F: [phone] Physical Therapy Plan of Care Date of Evaluation: 04/25/23 Date of Surgery: Diagnosis: Spondylosis, pain R hip, lumbar spasm. Assessment: Pt is a 73 y/o male referred to PT for eval and treat of spondylosis, pain R hip, lumbar spasm which Pt reports results in decreased tolerance for standing, sitting, walking, lifting objects from the ground and performing HH chores secondary to decreased trunk ROM, decreased hip and core strength, increased LE tissue tension, sedentary lifestyle, multiple lumbar injections, and pain. Pt is deemed an appropriate candidate to receive skilled PT services to address their physical impairments in order to improve their functional ability. Frequency and Duration: The patient will be seen 2 x /wk x 4 wks. Short Term Goals: Initiate home program. Improve baseline pain to < 7/10; initial: 10/10. Shelter Goals: I with home program. improve Mt by at least 9 points. Improve core strength by at least 1/2 MMT grade. Pt will report < 50% disturbed sleep d/t LBP; initial: > 75% to 100% disturbed. Pt will be able to walk intermediate distances with managed Sx; initial: pain prevents from walking even short distances. Treatment Plan: Modalities to reduce pain, spasms and effusion. Manual therapy to restore motion and function. Therapeutic exercise to improve strength and flexibility. Neuromuscular re-education for posture and balance. Therapeutic activities to return to functional activities of daily living. Electronically signed by: Julio Schofield PT. Please sign and return to therapist. Thank you for your referral.
--- NOTE | 2023-05-31 19:06 | MHC.PT.DC ---
[facility] [place] Office [place] Office [place] Office [address] Srini Phan [address] [phone] F: [phone] F: [phone] F: [phone] F: [phone] Physical Therapy Discharge Report Diagnosis: Spondylosis, pain R hip, lumbar spasm. Date of Surgery: Date of Evaluation: 04/25/23 Date of Discharge: 05/31/23 Treatments to Date: 9 Cancellations to Date: No Shows to Date: Discharge Status: Improved Function Independent with HEP Discharge Summary: Maximo has been an active and motivated participant in his therapy. HE is in agreement with DC as he is I with his program and though persists with pain he did make some meaningful improvements in his daily tolerance. Electronically signed by: Julio Schofield PT. Please sign and return to therapist. Thank you for your referral.
== END 2023-05-31 19:06 | disposition home or self-care (01) ==
LOC: HO.PT 11:00
PROVIDERS: PCP Internal Medicine; Visit Provider Nurse Practitioner Family
DX: M47.818 Spondylosis without myelopathy or radiculopathy, sacral and sacrococcygeal region (principal); M47.817 Spondylosis without myelopathy or radiculopathy, lumbosacral region; M54.16 Radiculopathy, lumbar region; M25.551 Pain in right hip
CPT/HCPCS: 97014; 97110; 97161

== ENCOUNTER 2023-06-20 08:44 | Outpatient (REF) | payer MEDICARE, OTHER, SELFPAY ==
--- NOTE | ~2023-06-20 | MR_ITS ---
MR LUMBAR SPINE WITHOUT CONTRAST CLINICAL INFORMATION: Lumbar region radiculopathy. COMPARISON: Lumbar spine radiographs 03/27/2023 and lumbar spine MRI 11/08/2020. TECHNIQUE: MRI of the lumbar spine was obtained using routine sequences without contrast. FINDINGS: 5 nonrib-bearing lumbar-type vertebral bodies. Lumbar alignment is normal. The vertebral body heights are maintained. Inferior endplate Schmorl's nodes with adjacent fatty marrow signal change and bone marrow edema at L2 and L4 are again noted with decreased bone marrow edema at L2 and increased bone marrow edema at L4 when compared to the prior exam. There is disc volume loss and disc desiccation at L5-S1. There is disc desiccation at L2-L3, L3-L4, L4-L5, and L5-S1. Conus terminates at the L1 level. The partially imaged bladder wall appears significantly thickened on the localizer series which can be further assessed with ultrasound. L1-L2: Disc contour is normal. No central canal stenosis and no foraminal stenosis. L2-L3: Small annular disc bulge and mild bilateral facet arthropathy. No central canal stenosis. No significant foraminal stenosis. L3-L4: Small annular disc bulge. Mild bilateral facet arthropathy. No central canal stenosis and no foraminal stenosis. L4-L5: Diffuse annular disc bulge and moderate bilateral facet arthropathy. Findings in concert result in similar narrowing of the subarticular zones with mass effect on the traversing L5 nerve roots bilaterally. No significant foraminal stenosis. No significant central canal stenosis. L5-S1: Diffuse annular disc bulge exhibiting a dorsal annular fissure that is in part disc osteophyte and moderate bilateral hypertrophic facet arthropathy. No central canal stenosis. Mild right-sided foraminal encroachment without exiting nerve root compression. MR/MR lumbar spine wo con IMPRESSION: - The partially imaged bladder wall appears significantly thickened on the localizer series which can be further assessed with ultrasound. - At L4-L5, multifactorial degenerative changes result in similar narrowing of the subarticular zones with mass effect on the traversing L5 nerve roots bilaterally. - At L5-S1, there is a dorsal annular fissure. - Inferior endplate Schmorl's nodes with adjacent fatty marrow signal change and bone marrow edema at L2 and L4 are again noted with decreased bone marrow edema at L2 and increased bone marrow edema at L4 when compared to the prior exam.
== END 2023-06-20 08:45 | disposition home or self-care (01) ==
LOC: HO.MRI 08:44
PROVIDERS: PCP Internal Medicine; Visit Provider Nurse Practitioner Family
DX: M54.16 Radiculopathy, lumbar region (principal); M47.817 Spondylosis without myelopathy or radiculopathy, lumbosacral region
CPT/HCPCS: 72148

== ENCOUNTER 2023-06-28 10:55 | Outpatient (AMB) | payer MEDICARE, MEDICAID, SELFPAY ==
--- NOTE | 2023-06-28 11:00 | MHC.OFFVIS ---
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 Denies any recent cough, cold, infection, fever or other significant changes in medical history since last office visit. PRIOR: Patient presents today for follow up for worsening low back pain with radiation into his right leg and left groin and lateral hip pain. He was last seen in our office in November 2021. Reports pain has been worsening for the past 6 months. Denies any recent trauma, injury or falls. Lumbar flexion and extension reproduce moderate to severe pain. SLR testing reproduces right leg pain with numbness and tingling radiating into his right buttock, lateral and anterior thigh and lateral riddle and into his toes. Reports intermittent RLE weakness. He has hard time getting up if he bends down. Walking and standing are limited due to pain. Minimal symptom relief with sitting but has to constantly readjusts his positioning. Patient reports celecoxib and gabapentin have been partially helpful, and would like refills for these medications. Patient has undergone multiple interventional treatments in the past 2 years in our office with 50-60% pain relief. We will proceed with updating his lumbar spine MRI and hip xray imaging prior to any further treatments. Patient denies any fever, chills, weight loss, abdominal pain, bladder or bowel dysfunction or saddle anesthesia. Past Procedures: 11/25/21: Right L5-S1 TFESI-50% for 4 weeks 12/08/20:?Bilateral L4, L5 joint aspiration and Intra-articular facet steroid injection ? More than 60% relief on the left side, and about 40% relief on the right side which lasted approximately 4 weeks.??? 01/26/21:?Right Parasagittal L4-L5 Interlaminar JAMEEL ? 60% relief on the right side 03/23/21:?Left L3-L4-L5 MBB RFA w/ fluoro- 50%?? 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 Alert and oriented. Mood and affect appropriate. Follows and participates in conversation appropriately. Respiratory effort is unlabored. Able to transition from sit to stand unassisted. Ambulates with bilaterally normal heel strike and toe off, reports imbalance on right side. Back/Spine/Pelvis Other: Limited lumbar range of motion due to pain. No midline tenderness to palpation in the thoracic or lumbar spine. Moderate paraspinal tenderness to palpation in the lumbar spine, right>left. Lumbar extension and flexion reproduce moderate pain Bilateral groin pain, moderate-severe right, mild to moderate left, with I/E hip rotations bilaterally. Mild TTP to bilateral GTB. Cervical Spine: cervical muscular tenderness and No Cervical spine tenderness Thoracic/Lumbar Spine: thoracic and lumbar spine normal to inspection, No Thoracic/lumbar spine scar(s), Lasegue's sign positive (L4-L5 distribution) bilateral, pain with thoraco-lumbar ROM, paraspinal muscle tenderness on the left greater than right, thoraco-lumbar ROM limited, No thoracic spinal tenderness, lumbar spinal tenderness (L4-S1) and straight leg raise positive right at 40 degrees Pelvis: buttock tenderness on the right and sciatic notch tenderness Sacroiliac joints: bilaterally (+Tereso's, +Pelvic compression, +Gaenslen) tender to palpation Results Reviewed Results Reviewed: Lumbar spine, AP pelvis and bilateral hips 03/27/23 INDICATION: Bilateral hip pain, lumbar radiculopathy COMPARISON: 12/24/18 lumbar spine FINDINGS: Lumbar spine: Lumbar lordotic straightening. 5 lumbar type vertebral bodies are identified and are maintained in height. Mild L4-L5 and L5-S1 disc space narrowings. Lower lumbar facet hypertrophic changes. Pedicles and SI joints within normal limits. No significant hip joint narrowings. Vascular calcifications. Pelvis and bilateral hips: Degenerative changes lower lumbar spine. SI joints within normal limits.. Hip joints are maintained. No fracture or dislocation. Pelvic soft tissue density likely bladder. IMPRESSION: Lumbar lordotic straightening, mild L4-L5 and L5-S1 disc disease. Unremarkable pelvis and bilateral hips. MR LUMBAR SPINE WITHOUT CONTRAST 06/20/23 CLINICAL INFORMATION: Lumbar region radiculopathy. COMPARISON: Lumbar spine radiographs 03/27/2023 and lumbar spine MRI 11/08/2020. TECHNIQUE: MRI of the lumbar spine was obtained using routine sequences without contrast. FINDINGS: 5 nonrib-bearing lumbar-type vertebral bodies. Lumbar alignment is normal. The vertebral body heights are maintained. Inferior endplate Schmorl's nodes with adjacent fatty marrow signal change and bone marrow edema at L2 and L4 are again noted with decreased bone marrow edema at L2 and increased bone marrow edema at L4 when compared to the prior exam. There is disc volume loss and disc desiccation at L5-S1. There is disc desiccation at L2-L3, L3-L4, L4-L5, and L5-S1. Conus terminates at the L1 level. The partially imaged bladder wall appears significantly thickened on the localizer series which can be further assessed with ultrasound. L1-L2: Disc contour is normal. No central canal stenosis and no foraminal stenosis. L2-L3: Small annular disc bulge and mild bilateral facet arthropathy. No central canal stenosis. No significant foraminal stenosis. L3-L4: Small annular disc bulge. Mild bilateral facet arthropathy. No central canal stenosis and no foraminal stenosis. L4-L5: Diffuse annular disc bulge and moderate bilateral facet arthropathy. Findings in concert result in similar narrowing of the subarticular zones with mass effect on the traversing L5 nerve roots bilaterally. No significant foraminal stenosis. No significant central canal stenosis. L5-S1: Diffuse annular disc bulge exhibiting a dorsal annular fissure that is in part disc osteophyte and moderate bilateral hypertrophic facet arthropathy. No central canal stenosis. Mild right-sided foraminal encroachment without exiting nerve root compression. IMPRESSION: - The partially imaged bladder wall appears significantly thickened on the localizer series which can be further assessed with ultrasound. - At L4-L5, multifactorial degenerative changes result in similar narrowing of the subarticular zones with mass effect on the traversing L5 nerve roots bilaterally. - At L5-S1, there is a dorsal annular fissure. - Inferior endplate Schmorl's nodes with adjacent fatty marrow signal change and bone marrow edema at L2 and L4 are again noted with decreased bone marrow edema at L2 and increased bone marrow edema at L4 when compared to the prior exam. Assessment & Plan Assessment & Plan (1) Lumbar and sacral spondyloarthritis: Code(s): M47.817 - Spondylosis without myelopathy or radiculopathy, lumbosacral region (2) Muscle spasm: Code(s): M62.838 - Other muscle spasm (3) Lumbar radiculopathy: Code(s): M54.16 - Radiculopathy, lumbar region (4) Vertebrogenic low back pain: Code(s): M54.51 - Vertebrogenic low back pain (5) Sacroiliac joint pain: Code(s): M53.3 - Sacrococcygeal disorders, not elsewhere classified (6) Bilateral hip pain: Code(s): M25.551 - Pain in right hip; M25.552 - Pain in left hip (7) Right groin pain: Code(s): R10.31 - Right lower quadrant pain Plan Lumbar spine MRI results were discussed with patient and his . Patient continues to endorse axial low back pain with radicular symptoms in L4-L5 radiation bilaterally, worse on the right. Patient completed 9 treatments of physical therapy without any meaningful improvement in his back or hip pain or functioning. Schedule bilateral L4-L5 TFESI with local and fluoroscopy for radicular symptoms. Expectations, risks and benefits were reviewed. Patient is aware he will be contacted to schedule this procedure. For his axial low back pain and degenerative changes on the endplates with Modic changes, he is a good candidate for Intracept/BVN ablation procedure at L4 level. Informational pamphlet provided. Continue Methocarbamol for muscle stiffness and spasms in his mid to lower back. Continue to monitor for any side effects and precautions. Continue gabapentin. Right hip MRI to further evaluate right groin and lateral hip pain. Consider Orthopedic evaluation. All questions and concerns have been answered and patient agreed with the plan. Follow up after injections and sooner if needed. Orders: Orders MR hip RT wo con Today M25.551 - Pain in right hip, M25.552 - Pain in left hip, R10.31 - Right lower quadrant pain Coding Level of Care Code Est Pt Level 4 (80084) Diagnoses Lumbar and sacral spondyloarthritis M47.817 Muscle spasm M62.838 Lumbar radiculopathy M54.16 Vertebrogenic low back pain M54.51 Sacroiliac joint pain M53.3 Bilateral hip pain M25.551; M25.552 Right groin pain R10.31
[2023-06-28 11:04] VITALS: BP 139/82; PULSE 82; O2SAT 99; BMI 27.1
== END 2023-06-28 11:40 | disposition home or self-care (01) ==
PROVIDERS: PCP Internal Medicine; Visit Provider Nurse Practitioner Family
DX: M47.817 Spondylosis without myelopathy or radiculopathy, lumbosacral region (principal); M62.838 Other muscle spasm; M54.16 Radiculopathy, lumbar region; M54.51 Vertebrogenic low back pain; M53.3 Sacrococcygeal disorders, not elsewhere classified; M25.551 Pain in right hip; M25.552 Pain in left hip; R10.31 Right lower quadrant pain
CPT/HCPCS: 99214

== ENCOUNTER → 2023-06-28 10:55 | Outpatient (BNVA) | payer MEDICARE, OTHER, SELFPAY | PROVIDERS: PCP Internal Medicine; Visit Provider Nurse Practitioner Family | DX: M47.817 Spondylosis without myelopathy or radiculopathy, lumbosacral region (principal); M62.838 Other muscle spasm; M54.16 Radiculopathy, lumbar region; M54.51 Vertebrogenic low back pain; M53.3 Sacrococcygeal disorders, not elsewhere classified; M25.551 Pain in right hip; M25.552 Pain in left hip; R10.31 Right lower quadrant pain | CPT/HCPCS: 99212 ==

== ENCOUNTER 2023-07-05 06:18 | Outpatient (REF) | payer MEDICARE, MEDICAID, SELFPAY ==
--- NOTE | ~2023-07-05 | FL_ITS ---
EXAMINATION: XR FLUOROSCOPY WITH IMAGES CLINICAL INFORMATION: Lumbar radiculopathy COMPARISON: None available. TECHNIQUE: Fluoroscopy Supervised By: Archana Tanner . Fluoroscopy Time: 0.2. Cumulative Dose: 9.70 mGy. DAP: 0.0914 Gycm2. Images: 4. FINDINGS: There are 4 digital images obtained. There are needles positioned adjacent and inferior bilateral L4 pedicles with contrast opacifying the extraspinal epidural space. Visualized bones are grossly unremarkable. FL/FL guidance in treatment room IMPRESSION: Fluoroscopy guidance was provided to referrer during pain management.
== END 2023-07-05 06:19 | disposition home or self-care (01) ==
LOC: CF 06:18
PROVIDERS: Visit Provider Internal Medicine
DX: M54.16 Radiculopathy, lumbar region (principal)
CPT/HCPCS: 64483; J1100; Q9967

== ENCOUNTER 2023-07-05 12:52 | Outpatient (AMB) | payer MEDICARE, MEDICAID, SELFPAY ==
--- NOTE | 2023-07-05 13:13 | A.OFFVIS_ITS ---
Intake Intake Visit Reasons: Andrew L4-L5 TFESI Allergies No Known Allergies Allergy (Verified 06/28/23 11:04) HPI Andrew L4-L5 TFESI HPI Details Patient presents for scheduled procedure. Denies any recent cough, cold, infection, fever or other significant changes in medical history since last office visit. 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 The patient was placed in the prone position on the fluoroscopy table. The lumbosacral area was prepped with chloraprep, allowed to dry and draped in sterile fashion. Using fluoroscopy, the skin overlying our target was anesthet ized with 0.5% lidocaine. A 22 gauge 3.5 inch spinal needle was advanced to the safe triangle in the upper pole of the right L4 foramen. No paresthesias were elicited with needle placement and aspiration was negative for blood and CSF. Correct needle position was confirmed with approximately 1 ml contrast dye (Omnipaque 180 mg/ml) injected under real-time fluoroscopy. No evidence of vascular or intrathecal uptake was seen and there was both epidural and peripheral spread of the contrast agent. Five mg dexamethasone plus 1 ml containing 0.5% lidocaine was slowly injected. The needle was flushed and removed. The same procedure was repeated for the other side. The skin was cleansed and a sterile bandages were applied. The patient tolerated the procedure well and no complications were encountered. Following the procedure the patient's vital signs were stable. The patient was discharged home in good condition with post-procedural instructions. Time Out: Immediately prior to the procedure, the following was verbally confirmed that there is a signed consent form and that the correct patient, planned procedure, site and side are consistent with documentation and that necessary equipment and/or blood products are available prior to the start of the case. Complications: none EBL: <5 cc 44707 - Lumbar/Sacral (Bilateral) Procedure code (CPT) selection complete Assessment & Plan Assessment & Plan (1) Lumbar radiculopathy: Code(s): M54.16 - Radiculopathy, lumbar region Plan Patient is status post bilateral L4-5 transforaminal epidural steroid injections. Patient tolerated procedure well and was discharged home in stable condition with discharge instructions. All questions were answered. We will follow-up via telephone or in clinic to assess response to therapy. A follow-up appointment was made during today's visit. Orders: Orders FL guidance in treatment room Today M54.16 - Radiculopathy, lumbar region Coding Level of Care Code Procedure Only Diagnoses Lumbar radiculopathy M54.16 CPT Codes Transforaminal Epidural Steroid Inj - TESI 3: 49130 - Lumbar/Sacral ([id number])
== END 2023-07-05 13:31 | disposition home or self-care (01) ==
LOC: HO.PMCPRC 12:52
PROVIDERS: PCP Internal Medicine; Visit Provider Internal Medicine
DX: M54.16 Radiculopathy, lumbar region (principal)
CPT/HCPCS: 64483

== ENCOUNTER 2023-08-02 12:42 | Outpatient (AMB) | payer MEDICARE, MEDICAID, SELFPAY ==
--- NOTE | 2023-08-02 12:51 | MHC.OFFVIS ---
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 Giordano. Patient reports less than 30% pain improvement in his leg pain with mild increased walking capacity but no pain relief in his low back pain. He continues to endorse hip and groin pain, worse on the right and has pending hip MRI next week. We reviewed neuromodulation with SCS trial and BVN ablation at L4 level with patient and his today. Patient is interested to undergo Neurosurgical evaluation prior to any further interventional treatments. He currently manages his pain with Tylenol, Celecoxib, gabapentin and methocarbamol. Patient denies any fever, chills, weight loss, abdominal pain, bladder or bowel dysfunction or saddle anesthesia. Past Procedures: 07/05/23: Bilateral L4-L5 TFESI-30% leg pain relief, 0% back pain relief 11/25/21: Right L5-S1 TFESI-50% for 4 weeks 12/08/20:?Bilateral L4, L5 joint aspiration and Intra-articular facet steroid injection ? More than 60% relief on the left side, and about 40% relief on the right side which lasted approximately 4 weeks.??? 01/26/21:?Right Parasagittal L4-L5 Interlaminar JAMEEL ? 60% relief on the right side 03/23/21:?Left L3-L4-L5 MBB RFA w/ fluoro- 50%?? 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 Alert and oriented. Mood and affect appropriate. Follows and participates in conversation appropriately. Respiratory effort is unlabored. Able to transition from sit to stand unassisted. Ambulates with bilaterally normal heel strike and toe off, reports imbalance on right side. Back/Spine/Pelvis Other: Limited lumbar range of motion due to pain. Lumbar extension and flexion reproduce moderate pain. No midline tenderness to palpation in the thoracic or lumbar spine. Moderate paraspinal tenderness to palpation in the lumbar spine, right>left. Bilateral groin pain, moderate-right, mild to moderate left, with I/E hip rotations bilaterally. Mild TTP to bilateral GTB. Cervical Spine: cervical ROM normal and No Cervical spine tenderness Thoracic/Lumbar Spine: thoracic and lumbar spine normal to inspection, No Thoracic/lumbar spine scar(s), Lasegue's sign positive bilateral and diffuse, pain with thoraco-lumbar ROM, paraspinal muscle tenderness on the left greater than right, thoraco-lumbar ROM limited, No thoracic spinal tenderness, lumbar spinal tenderness (L4-S1) and straight leg raise positive right at 40 degrees Pelvis: buttock tenderness on the right and sciatic notch tenderness Sacroiliac joints: bilaterally (+Tereso's, +Pelvic compression, +Gaenslen) tender to palpation Results Reviewed Results Reviewed: Lumbar spine, AP pelvis and bilateral hips 03/27/23 INDICATION: Bilateral hip pain, lumbar radiculopathy COMPARISON: 12/24/18 lumbar spine FINDINGS: Lumbar spine: Lumbar lordotic straightening. 5 lumbar type vertebral bodies are identified and are maintained in height. Mild L4-L5 and L5-S1 disc space narrowings. Lower lumbar facet hypertrophic changes. Pedicles and SI joints within normal limits. No significant hip joint narrowings. Vascular calcifications. Pelvis and bilateral hips: Degenerative changes lower lumbar spine. SI joints within normal limits.. Hip joints are maintained. No fracture or dislocation. Pelvic soft tissue density likely bladder. IMPRESSION: Lumbar lordotic straightening, mild L4-L5 and L5-S1 disc disease. Unremarkable pelvis and bilateral hips. MR LUMBAR SPINE WITHOUT CONTRAST 06/20/23 CLINICAL INFORMATION: Lumbar region radiculopathy. COMPARISON: Lumbar spine radiographs 03/27/2023 and lumbar spine MRI 11/08/2020. TECHNIQUE: MRI of the lumbar spine was obtained using routine sequences without contrast. FINDINGS: 5 nonrib-bearing lumbar-type vertebral bodies. Lumbar alignment is normal. The vertebral body heights are maintained. Inferior endplate Schmorl's nodes with adjacent fatty marrow signal change and bone marrow edema at L2 and L4 are again noted with decreased bone marrow edema at L2 and increased bone marrow edema at L4 when compared to the prior exam. There is disc volume loss and disc desiccation at L5-S1. There is disc desiccation at L2-L3, L3-L4, L4-L5, and L5-S1. Conus terminates at the L1 level. The partially imaged bladder wall appears significantly thickened on the localizer series which can be further assessed with ultrasound. L1-L2: Disc contour is normal. No central canal stenosis and no foraminal stenosis. L2-L3: Small annular disc bulge and mild bilateral facet arthropathy. No central canal stenosis. No significant foraminal stenosis. L3-L4: Small annular disc bulge. Mild bilateral facet arthropathy. No central canal stenosis and no foraminal stenosis. L4-L5: Diffuse annular disc bulge and moderate bilateral facet arthropathy. Findings in concert result in similar narrowing of the subarticular zones with mass effect on the traversing L5 nerve roots bilaterally. No significant foraminal stenosis. No significant central canal stenosis. L5-S1: Diffuse annular disc bulge exhibiting a dorsal annular fissure that is in part disc osteophyte and moderate bilateral hypertrophic facet arthropathy. No central canal stenosis. Mild right-sided foraminal encroachment without exiting nerve root compression. IMPRESSION: - The partially imaged bladder wall appears significantly thickened on the localizer series which can be further assessed with ultrasound. - At L4-L5, multifactorial degenerative changes result in similar narrowing of the subarticular zones with mass effect on the traversing L5 nerve roots bilaterally. - At L5-S1, there is a dorsal annular fissure. - Inferior endplate Schmorl's nodes with adjacent fatty marrow signal change and bone marrow edema at L2 and L4 are again noted with decreased bone marrow edema at L2 and increased bone marrow edema at L4 when compared to the prior exam. Assessment & Plan Assessment & Plan (1) Bilateral hip pain: Code(s): M25.551 - Pain in right hip; M25.552 - Pain in left hip (2) Lumbar radiculopathy: Code(s): M54.16 - Radiculopathy, lumbar region (3) Vertebrogenic low back pain: Code(s): M54.51 - Vertebrogenic low back pain (4) Lumbar and sacral spondyloarthritis: Code(s): M47.817 - Spondylosis without myelopathy or radiculopathy, lumbosacral region (5) Sacroiliac joint pain: Code(s): M53.3 - Sacrococcygeal disorders, not elsewhere classified (6) Right groin pain: Code(s): R10.31 - Right lower quadrant pain Plan Patient is status post bilateral L4-L5 TFESI with minimal pain relief. Continues to endorse low back pain with radicular and right hip/groin pain symptoms. Patient completed 9 treatments of physical therapy without any meaningful improvement in his back or hip pain or functioning. For his axial low back pain and degenerative changes on the endplates with Modic changes, we reviewed Intracept/BVN ablation procedure at L4 level. We also discussed neuromodulation. Extensive discussion regarding the risks and benefits of SCS trial and implant procedures and all questions were answered to patient satisfaction.? Continue Methocarbamol, gabapentin, Tylenol, NSAIDs prn. Short script send for tramadol for moderate-severe pain only. Continue to monitor for any side effects. Pending right hip MRI to further evaluate right groin and lateral hip pain. Consider Orthopedic evaluation. All questions and concerns have been answered and patient agreed with the plan. Follow up after Neurosurgical evaluation and sooner if needed. Orders: Referrals Neurosurgery Referral M54.16 - Radiculopathy, lumbar region, M54.51 - Vertebrogenic low back pain Medications: New tramadol 50 mg PO BID 15 days PRN 30 tabs 0RF pain (scale score 7-10) M25.551 - Pain in right hip, M25.552 - Pain in left hip, M54.16 - Radiculopathy, lumbar region, M54.51 - Vertebrogenic low back pain Coding Level of Care Code Est Pt Level 4 (68729) Diagnoses Bilateral hip pain M25.551; M25.552 Lumbar radiculopathy M54.16 Vertebrogenic low back pain M54.51 Lumbar and sacral spondyloarthritis M47.817 Sacroiliac joint pain M53.3 Right groin pain R10.31
[2023-08-02 12:54] VITALS: BP 139/83; PULSE 81; O2SAT 99; BMI 27.1
== END 2023-08-02 13:17 | disposition home or self-care (01) ==
PROVIDERS: PCP Internal Medicine; Visit Provider Nurse Practitioner Family
DX: M25.551 Pain in right hip (principal); M25.552 Pain in left hip; M54.16 Radiculopathy, lumbar region; M54.51 Vertebrogenic low back pain; M47.817 Spondylosis without myelopathy or radiculopathy, lumbosacral region; M53.3 Sacrococcygeal disorders, not elsewhere classified; R10.31 Right lower quadrant pain
CPT/HCPCS: 99214

== ENCOUNTER → 2023-08-02 12:42 | Outpatient (BNVA) | payer MEDICARE, OTHER, SELFPAY | PROVIDERS: PCP Internal Medicine; Visit Provider Nurse Practitioner Family | DX: M25.551 Pain in right hip (principal); M25.552 Pain in left hip; M54.16 Radiculopathy, lumbar region; M54.51 Vertebrogenic low back pain; M47.817 Spondylosis without myelopathy or radiculopathy, lumbosacral region; M53.3 Sacrococcygeal disorders, not elsewhere classified; R10.31 Right lower quadrant pain | CPT/HCPCS: 99212 ==

== ENCOUNTER 2023-08-10 10:27 | Outpatient (REF) | payer MEDICARE, MEDICAID, SELFPAY ==
--- NOTE | ~2023-08-10 | MR_ITS ---
EXAMINATION: MR HIP WITHOUT CONTRAST, RIGHT CLINICAL INFORMATION: Right hip pain which is worsening. Pinching sensation. COMPARISON: Bilateral hip and pelvic radiographs dated 03/27/2023. TECHNIQUE: MRI of the right hip was obtained using routine sequences on a high-field strength magnet. FINDINGS: ACETABULAR LABRUM: No displaced labral tear. ARTICULAR CARTILAGE/BONE: Superior articular cartilage signal heterogeneity with focal full-thickness fissuring at the lateral chondrolabral junction where there is minimal subchondral cystic change. Tiny marginal osteophytes. No stress reaction, fracture, or avascular necrosis. No concerning lytic or blastic osseous lesion. MUSCLES/TENDONS: Intact. JOINT FLUID/BURSA: Trace right hip joint effusion. INTRAPELVIC STRUCTURES: Diffuse urinary bladder wall thickening with mild trabeculation. No associated inflammatory change. Prostatomegaly. MR/MR hip RT wo con IMPRESSION: 1. Mild right hip osteoarthritis and trace joint effusion. 2. No stress reaction, fracture, or avascular necrosis. 3. Diffuse urinary bladder wall thickening with mild trabeculation. No associated inflammatory change. Prostatomegaly.
== END 2023-08-10 10:28 | disposition home or self-care (01) ==
LOC: HO.MRI 10:27
PROVIDERS: PCP Internal Medicine; Visit Provider Nurse Practitioner Family
DX: M25.551 Pain in right hip (principal)
CPT/HCPCS: 73721

== ENCOUNTER 2023-08-17 11:13 | Outpatient (AMB) | payer MEDICARE, MEDICAID, SELFPAY ==
--- NOTE | 2023-08-17 11:21 | MHC.OFFVIS ---
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 Accompanied by: Self / Same As Patient Allergies No Known Allergies Allergy (Verified 08/17/23 13:39) Medication List - Last Reconciled 08/17/23 by BREE Hairston-ARELI atorvastatin 40 mg PO DAILY cane As directed celecoxib 100 mg PO BID enalapril maleate 20 mg PO DAILY gabapentin 300 mg PO BEDTIME 30 days hydrochlorothiazide 25 mg PO DAILY lisinopril 20 mg PO DAILY methocarbamol 750 mg PO BID PRN 30 days metoprolol succinate ER 100 mg PO DAILY multivitamin 1 tab PO DAILY omeprazole 40 mg PO DAILY peg 3350-electrolytes 236-22.74-6.74 -5.86 gram (Golytely) 240 mL PO Q10M 1 day tamsulosin 0.4 mg PO BEDTIME 30 days tramadol 50 mg PO BID PRN 15 days trazodone 50 mg PO BEDTIME PRN triamcinolone acetonide 0.1% topical BID HPI Comments Details: Maximo is a very pleasant 73-year-old male patient of Dr. Maxi Harvey. He has a past medical history of hypertension, lumbar radiculitis, psoriasis, GERD, hyperlipidemia, osteoarthritis, gout, and chronic headaches. He presents to the office today as a new patient for bladder wall thickening. In discussion with the patient today he reports having had recent MRI of his back as he has chronic back pain at which time MRI noted bladder wall thickening and recommendations were made for urology referral for further assessment evaluation. MRI notes: The partially imaged bladder wall appears significantly thickened on the localizer series. In discussion with the patient today he reports noting longstanding history of weak urinary stream and nocturia. He also reports episodes of urinary urgency and frequency however describes these episodes as infrequent. He otherwise denies incontinence, hematuria, dysuria, foul smelling urine, changes to urinary stream, flank pain, fever, and or chills. In office urinalysis results reviewed with the patient today. PVR 118 mL. Discussed at length causes and affects of incomplete bladder emptying and bladder wall thickening. He otherwise offers no other issues or concerns at this time. 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 Review of Systems Const Reports no additional complaints Eyes Reports no additional complaints ENT Reports no additional complaints Card Reports no additional complaints Resp Reports no additional complaints GI Reports as per HPI Reports as per HPI Musc Reports as per HPI Neuro Reports no additional complaints Psych Reports no additional complaints Endo Reports no additional complaints Guillaume/Lymph Reports no additional complaints Aller/Immun Reports no additional complaints Physical Exam Const General: cooperative, healthy appearing, comfortable, no acute distress, well developed, alert and awake Orientation/consciousness: patient oriented x3 HEENT Head: Yes normal to inspection, Yes normocephalic and Yes atraumatic Ears: hearing grossly normal bilaterally Eyes General: appearance normal, both eyes and all related structures Neck Neck: Yes normal visual inspection and Yes trachea midline Chest Chest palpation & inspection: normal inspection of the chest Resp Effort & Inspection: normal respiratory effort and able to speak in complete sentences Cardio Rate: regular rate GI Inspection: Yes normal to inspection General: Yes no CVA tenderness Back/Spine/Pelvis Back: no CVA tenderness Skin General skin exam: no rashes or lesions noted Neuro General: patient oriented x3 Extrem General: Yes normal to inspection Psych Appearance: grossly normal and well kempt Mental Status: mental status grossly normal Speech and movement: Normal speech and movement present and Clear speech present Affect: normal affect Attitude: cooperative Thought process: Normal thought process present Thought content: Normal thought content present Insight: Fair insight present (Psych) Judgement: Fair judgement present (Psych) Office Procedures Post Void Residual Post Residual Void Post Void Residual (PVR): [id number] Void Residual by ultrasound Results AMB Urinalysis, Automated UA Leukoctes 0 Ottoniel/uL Last Edit by Pieter Ross on 08/17/23 11:41 UA Nitrite Negative Last Edit by Pieter Ross on 08/17/23 11:41 UA Urobilinogen 0.2 mg/dL Last Edit by Pieter Ross on 08/17/23 11:41 UA Protein 0 mg/dL Last Edit by Pieter Ross on 08/17/23 11:41 UA pH 6.0 Last Edit by Pieter Ross on 08/17/23 11:41 UA Blood 0 Jonny/uL Last Edit by Pieter Ross on 08/17/23 11:41 UA Specific [place] 1.015 Last Edit by Pieter Ross on 08/17/23 11:41 UA Ketone Negative Last Edit by Pieter Ross on 08/17/23 11:41 UA Bilirubin 0 mg/dL Last Edit by Pieter Ross on 08/17/23 11:41 UA Glucose 0 mg/dL Last Edit by Pieter Ross on 08/17/23 11:41 Results Reviewed Results Reviewed: Laboratory Last Values Urine pH (Auto) 6.0 08/17/23 11:26 Specific [place] (Auto) 1.015 08/17/23 11:26 Urine Protein (Auto) 0 mg/dL 08/17/23 11:26 Glucose (UA)(Auto) 0 mg/dL 08/17/23 11:26 Urine Ketones (Auto) Negative 08/17/23 11:26 Urine Blood (Auto) 0 Jonny/uL 08/17/23 11:26 Urine Nitrite (Auto) Negative 08/17/23 11:26 Urine Bilirubin (Auto) 0 mg/dL 08/17/23 11:26 Urine Urobilinogen (Auto) 0.2 mg/dL 08/17/23 11:26 Leukocyte Esterase (Auto) 0 Ottoniel/uL 08/17/23 11:26 Assessment & Plan Assessment & Plan (1) Incomplete bladder emptying: Code(s): R33.9 - Retention of urine, unspecified Category: Medical (2) Bladder wall thickening: Code(s): N32.89 - Other specified disorders of bladder Category: Medical Plan In office urinalysis results reviewed with the patient today; as noted above. PVR 118ml's Discussed at length causes and effects of incomplete bladder emptying and bladder wall thickening. Start Flomax as discussed and prescribed. Will obtain PSA for further assessment evaluation. Discussed importance of limiting fluids 2-3 hours prior to bed to decrease episodes of nocturia. Follow-up in 6-8 weeks with PSA and PVR; or sooner with any issues, concerns, and or questions. Orders: Orders Prostate Specific Antigen Today N40.0 - Benign prostatic hyperplasia without lower urinary tract symptoms AMB Urinalysis Automated Today Z13.9 - Encounter for screening, unspecified AMB Post Void Residual by ultrasound Today N32.89 - Other specified disorders of bladder Medications: New tamsulosin 0.4 mg PO BEDTIME 30 days 30 caps 1RF N40.1 - Benign prostatic hyperplasia with lower urinary tract symptoms, R35.1 - Nocturia Patient Instructions: The patient had an opportunity to ask questions regarding the treatment plan. All questions were answered. Physical exam, labs, and imaging were discussed and reviewed in detail. As well as risks, benefits, and discussion of treatment choices. No major barriers to understanding were identified. The patient expressed understanding and agreement with the above treatment plan. The patient was made aware they should contact our office by phone for worsening of their current condition, the appearance of new symptoms, or with any questions or concerns. Compliance is encouraged with any medications and follow up testing that is ordered. It is a privilege to be allowed the opportunity to participate in? your urological care.? Again, if you have any questions or concerns If you have any questions or concerns please do not hesitate to contact me. The office is [phone]. This note is constructed using voice recognition software. While every effort has been made to ensure accuracy lamp tester and inspector errors may have been included. Yours sincerely, LISA Hairston
== END 2023-08-17 11:52 | disposition home or self-care (01) ==
PROVIDERS: PCP Internal Medicine; Visit Provider Nurse Practitioner Family
DX: R33.9 Retention of urine, unspecified (principal); N32.89 Other specified disorders of bladder; Z13.9 Encounter for screening, unspecified
CPT/HCPCS: 99204; 99214

== ENCOUNTER 2023-08-17 11:55 | Outpatient (REF) | payer MEDICARE, MEDICAID, SELFPAY ==
[2023-08-17 17:06] LABS: Prostate Specific Antigen 2.29 ng/mL (<0.05-4.0)
== END 2023-08-17 11:56 | disposition home or self-care (01) ==
LOC: HO.10HDL 11:55
PROVIDERS: Visit Provider Nurse Practitioner Family
DX: N40.0 Benign prostatic hyperplasia without lower urinary tract symptoms (principal); Z12.5 Encounter for screening for malignant neoplasm of prostate
CPT/HCPCS: 36415; 51798; 81003; 84153; 99202

== ENCOUNTER 2023-08-21 12:34 | Outpatient (REF) | payer MEDICARE, MEDICAID, SELFPAY ==
--- NOTE | ~2023-08-21 | XR_ITS ---
EXAMINATION: XR LUMBOSACRAL SPINE WITH OBLIQUES CLINICAL INFORMATION: Spondylosis without myelopathy radiculopathy. COMPARISON: MRI lumbar spine 06/20/2023, x-ray lumbar spine 03/27/2023. TECHNIQUE: AP, lateral, neutral, flexion and extension views of the lumbar spine. FINDINGS: Slight leftward curvature of the lumbar spine with straightening of the normal lumbar lordosis. Five (5) lumbar type vertebral bodies identified. Lumbar vertebral body heights are preserved. Lumbar spondylosis with mild loss of disc space height at L4-L5 and L5-S1 redemonstrated. Facet arthritis in the lower lumbar spine. Bilateral sacroiliac joints are symmetric. Alignment preserved on flexion and extension views. XR/XR lumbar spine 4V min IMPRESSION: Lumbar spondylosis with mild loss of disc space height at L4-L5 and L5-S1 redemonstrated.
== END 2023-08-21 12:35 | disposition home or self-care (01) ==
LOC: HO.HOSX 12:34
PROVIDERS: PCP Internal Medicine; Visit Provider Physician Assistant
DX: M47.817 Spondylosis without myelopathy or radiculopathy, lumbosacral region (principal)
CPT/HCPCS: 72110; 99202

== ENCOUNTER 2023-08-21 12:34 | Outpatient (AMB) | payer MEDICARE, MEDICAID, SELFPAY ==
--- NOTE | 2023-08-21 12:59 | A.SPINEOV_ITS ---
Intake Visit Reasons: Vertebrogenic low back pain Intake Note: Mr. Banks is here today c/o low back pain. 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 He has a 73- year-old gentleman who has had history of chronic back pain for 2 years steadily getting worse. He tells me it is in the paraspinal distribution of the lumbar spine, primarily on the right. When he gets up in the morning it takes him about 5-10 minutes to get started and get going. As the day goes on the pain only seems to get worse. He takes gabapentin, Celebrex and tramadol those things do seem to give him some relief. He has occasional right hip pain but denies any radicular pain down the legs, no tingling numbness or weakness. Underwent physical therapy as well as numerous rounds of cortisone injections including at the L4-5 region and these things have given him no relief. There is consideration for possible spinal cord stimulator so he is here for neurosurgical consultation before that intervention. He has an MRI done at [place]. PMH: He has a history of BPH, hypertension, high cholesterol, osteoarthritis of the right knee, ORIF of his ankle, umbilical hernia repair. Social hx: He does not smoke, drink use any recreational drugs Medications: Atorvastatin, Celebrex, enalapril, gabapentin, hydrochlorothiazide, lisinopril, methocarbamol, metoprolol, multivitamin, o meprazole, Flomax, tramadol, trazodone Allergies: None Physical exam: He is intact strength and reflexes are normal. He does have pain with standing and vertical position but his gait is normal when he is walking. Imaging review: Lumbar MRI done [facility] shows evidence of normal alignment, overall disc height and quality is mildly to moderate degenerative throughout the lumbar spine. He does have to Schmorl's nodes with some reactive endplate changes at L2-3 and L4-5. The report suggests there is crowding of the lateral recess at L4-5 but I do not see any evidence of any nerve compression or significant stenosis either central canal or the foramen. Impression: 73-year-old male presents for evaluation of chronic low back pain, it is paraspinal and distribution, right greater than left, worse with activity and standing walking seems to get better when he sits down. His MRI shows some mild to moderate degenerative disc disease with to Schmorl's nodes projecting i nto the endplates at L2-3 and L4-5. There is some reactive changes to this area. I sent the patient for flexion-extension x-rays. There is no signs of instability. I reviewed the situation with Dr. Fernández, we typically would not treat Schmorl's nodes with surgery, specifically spinal fusion which is the standard for back pain. At this point I think he should consider moving ahead with the option of the spinal cord stimulator trial. Thank you for allowing us to care for your patient. The total time spent with this visit with this patient was 45 minutes reviewing history, physical exam, lumbar imaging review, and implementation of treatment plan or further diagnostic testing Hai Fernández MD,PhD [facility] Orders: Orders XR lumbar spine 4V min Today M47.817 - Spondylosis without myelopathy or radiculopathy, lumbosacral region Coding Level of Care Code New Pt Level 4 (26991) Diagnoses Lumbar and sacral spondyloarthritis M47.817
== END 2023-08-21 14:13 | disposition home or self-care (01) ==
PROVIDERS: PCP Internal Medicine; Referring Provider Nurse Practitioner Family; Visit Provider Physician Assistant
DX: M47.817 Spondylosis without myelopathy or radiculopathy, lumbosacral region (principal)
CPT/HCPCS: 99204; 99214

== ENCOUNTER 2023-08-27 09:10 | Outpatient (AMB) | payer MEDICARE, MEDICAID, SELFPAY ==
--- NOTE | 2023-08-27 09:22 | A.OFFVIS_ITS ---
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 Neurosurgery evaluation by Hai MCCLOUD: 73-year-old male presents for evaluation of chronic low back pain, it is paraspinal and distribution, right greater than left, worse with activity and standing walking seems to get better when he sits down. His MRI shows some mild to moderate degenerative disc disease with to Schmorl's nodes projecting into the endplates at L2-3 and L4-5. There is some reactive changes to this area. I sent the patient for flexion-extension x-rays. There is no signs of instability. I reviewed the situation with Dr. Fernández, we typically would not treat Schmorl's nodes with surgery, specifically spinal fusion which is the standard for back pain. At this point I think he should consider moving ahead with the option of the spinal cord stimulator trial. The trialed and failed therapy has been reviewed with the patient. The risks, consequences, alternatives, and benefits of various treatment options were discussed with the patient in great detail, including conservative management, injections and procedures. Plan to proceed with the SCS once patient passes Behavioral Evaluation. Right hip MRI showed mild right hip osteoarthritis and trace joint effusion and diffuse urinary bladder wall thickening with mild trabeculation. He was seen by Urology on 08/17/23 and started on tamsulosin at bedtime and has follow up for PSA and PVR. Patient reports right hip pain with weight bearing and walking but reports back pain is more troublesome than hip pain. Patient continues to partially manage his back symptoms with Tylenol, Celecoxib, gabapentin and methocarbamol. He tried short script of tramadol with minimal pain relief. Patient denies any fever, chills, weight loss, abdominal pain, bladder or bowel dysfunction or saddle anesthesia. Past Procedures: 07/05/23: Bilateral L4-L5 TFESI-30% leg pain relief, 0% back pain relief 11/25/21: Right L5-S1 TFESI-50% for 4 weeks 12/08/20:?Bilateral L4, L5 joint aspiration and Intra-articular facet steroid injection ? More than 60% relief on the left side, and about 40% relief on the right side which lasted approximately 4 weeks.??? 01/26/21:?Right Parasagittal L4-L5 Interlaminar JAMEEL ? 60% relief on the right side 03/23/21:?Left L3-L4-L5 MBB RFA w/ fluoro- 50%?? 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 Alert and oriented. Mood and affect appropriate. Follows and participates in conversation appropriately. Respiratory effort is unlabored. Able to transition from sit to stand unassisted. Ambulates with bilaterally normal heel strike and toe off, reports imbalance on right side. Back/Spine/Pelvis Other: Limited lumbar ROM due to pain. Lumbar extension and flexion reproduce moderate pain. No midline tenderness to palpation in the thoracic or lumbar spine. Moderate paraspinal tenderness to palpation in the lower thoracic and lumbar spine, right>left. Bilateral groin mild pain with I/E hip rotations bilaterally. Mild TTP to bilateral GTB. Cervical Spine: cervical ROM normal and No Cervical spine tenderness Thoracic/Lumbar Spine: thoracic and lumbar spine normal to inspection, No Thoracic/lumbar spine scar(s), Lasegue's sign positive bilateral and diffuse, pain with thoraco-lumbar ROM, paraspinal muscle tenderness on the right greater than left, thoraco-lumbar ROM limited, No thoracic spinal tenderness, lumbar spinal tenderness (L4-S1) and straight leg raise positive right at 40 degrees Pelvis: buttock tenderness on the right and sciatic notch tenderness Sacroiliac joints: bilaterally (+Tereso's, +Pelvic compression, +Gaenslen) tender to palpation Results Reviewed Results Reviewed: Lumbar spine, AP pelvis and bilateral hips 03/27/23 INDICATION: Bilateral hip pain, lumbar radiculopathy COMPARISON: 12/24/18 lumbar spine FINDINGS: Lumbar spine: Lumbar lordotic straightening. 5 lumbar type vertebral bodies are identified and are maintained in height. Mild L4-L5 and L5-S1 disc space narrowings. Lower lumbar facet hypertrophic changes. Pedicles and SI joints within normal limits. No significant hip joint narrowings. Vascular calcifications. Pelvis and bilateral hips: Degenerative changes lower lumbar spine. SI joints within normal limits.. Hip joints are maintained. No fracture or dislocation. Pelvic soft tissue density likely bladder. IMPRESSION: Lumbar lordotic straightening, mild L4-L5 and L5-S1 disc disease. Unremarkable pelvis and bilateral hips. MR LUMBAR SPINE WITHOUT CONTRAST 06/20/23 CLINICAL INFORMATION: Lumbar region radiculopathy. COMPARISON: Lumbar spine radiographs 03/27/2023 and lumbar spine MRI 11/08/2020. TECHNIQUE: MRI of the lumbar spine was obtained using routine sequences without contrast. FINDINGS: 5 nonrib-bearing lumbar-type vertebral bodies. Lumbar alignment is normal. The vertebral body heights are maintained. Inferior endplate Schmorl's nodes with adjacent fatty marrow signal change and bone marrow edema at L2 and L4 are again noted with decreased bone marrow edema at L2 and increased bone marrow edema at L4 when compared to the prior exam. There is disc volume loss and disc desiccation at L5-S1. There is disc desiccation at L2-L3, L3-L4, L4-L5, and L5-S1. Conus terminates at the L1 level. The partially imaged bladder wall appears significantly thickened on the localizer series which can be further assessed with ultrasound. L1-L2: Disc contour is normal. No central canal stenosis and no foraminal stenosis. L2-L3: Small annular disc bulge and mild bilateral facet arthropathy. No central canal stenosis. No significant foraminal stenosis. L3-L4: Small annular disc bulge. Mild bilateral facet arthropathy. No central canal stenosis and no foraminal stenosis. L4-L5: Diffuse annular disc bulge and moderate bilateral facet arthropathy. Findings in concert result in similar narrowing of the subarticular zones with mass effect on the traversing L5 nerve roots bilaterally. No significant foraminal stenosis. No significant central canal stenosis. L5-S1: Diffuse annular disc bulge exhibiting a dorsal annular fissure that is in part disc osteophyte and moderate bilateral hypertrophic facet arthropathy. No central canal stenosis. Mild right-sided foraminal encroachment without exiting nerve root compression. IMPRESSION: - The partially imaged bladder wall appears significantly thickened on the localizer series which can be further assessed with ultrasound. - At L4-L5, multifactorial degenerative changes result in similar narrowing of the subarticular zones with mass effect on the traversing L5 nerve roots bilaterally. - At L5-S1, there is a dorsal annular fissure. - Inferior endplate Schmorl's nodes with adjacent fatty marrow signal change and bone marrow edema at L2 and L4 are again noted with decreased bone marrow edema at L2 and increased bone marrow edema at L4 when compared to the prior exam. MR HIP WITHOUT CONTRAST, RIGHT 08/10/23 CLINICAL INFORMATION: Right hip pain which is worsening. Pinching sensation. COMPARISON: Bilateral hip and pelvic radiographs dated 03/27/2023. TECHNIQUE: MRI of the right hip was obtained using routine sequences on a high-field strength magnet. FINDINGS: ACETABULAR LABRUM: No displaced labral tear. ARTICULAR CARTILAGE/BONE: Superior articular cartilage signal heterogeneity with focal full-thickness fissuring at the lateral chondrolabral junction where there is minimal subchondral cystic change. Tiny marginal osteophytes. No stress reaction, fracture, or avascular necrosis. No concerning lytic or blastic osseous lesion. MUSCLES/TENDONS: Intact. JOINT FLUID/BURSA: Trace right hip joint effusion. INTRAPELVIC STRUCTURES: Diffuse urinary bladder wall thickening with mild trabeculation. No associated inflammatory change. Prostatomegaly. IMPRESSION: 1. Mild right hip osteoarthritis and trace joint effusion. 2. No stress reaction, fracture, or avascular necrosis. 3. Diffuse urinary bladder wall thickening with mild trabeculation. No associated inflammatory change. Prostatomegaly. Assessment & Plan Assessment & Plan (1) Lumbar and sacral spondyloarthritis: Code(s): M47.817 - Spondylosis without myelopathy or radiculopathy, lumbosacral region Category: Medical (2) Lumbar radiculopathy: Code(s): M54.16 - Radiculopathy, lumbar region Category: Medical (3) Intractable low back pain: Code(s): M54.59 - Other low back pain Category: Medical (4) Vertebrogenic low back pain: Code(s): M54.51 - Vertebrogenic low back pain Category: Medical (5) Sacroiliac joint pain: Code(s): M53.3 - Sacrococcygeal disorders, not elsewhere classified Category: Medical (6) Muscle spasm: Code(s): M62.838 - Other muscle spasm Category: Medical (7) Right groin pain: Code(s): R10.31 - Right lower quadrant pain Category: Medical Plan Placed referral for psychology clearance in anticipation of SCS trial. Extensive discussion regarding the risks and benefits of SCS trial and implant procedures and all questions were answered to patient satisfaction. Will proceed with the [employer] Lumbar SCS trial pending psychology clearance. Continue Methocarbamol, gabapentin, Tylenol, NSAIDs prn. Short script send for Vicodinl for moderate-severe back and hip pain only. Continue to monitor for any side effects. Narcan script provided, instructions of use reviewed with patient. All questions and concerns have been answered and patient agreed with the plan. Follow up as needed. Medications: New naloxone 4 mg/actuation (Narcan) spray 1 dose into ONE nostril; alternate nostrils w each dose until help arrives 4 mg intranasal Q2M PRN 2 ea 0RF opioid overdose hydrocodone-acetaminophen 5-325 mg Partial Fill upon patient request. 1 tab PO BID PRN 20 tabs 0RF pain 10 days M47.817 - Spondylosis without myelopathy or radiculopathy, lumbosacral region, M54.16 - Radiculopathy, lumbar region, M54.59 - Other low back pain Discontinued tramadol Discontinued Reason: Patient Completed Course 50 mg PO BID 15 days PRN 30 tabs 0RF pain (scale score 7-10) M25.551 - Pain in right hip, M25.552 - Pain in left hip, M54.16 - Radiculopathy, lumbar region, M54.51 - Vertebrogenic low back pain Coding Level of Care Code Est Pt Level 4 (44958) Diagnoses Lumbar and sacral spondyloarthritis M47.817 Lumbar radiculopathy M54.16 Intractable low back pain M54.59 Vertebrogenic low back pain M54.51 Sacroiliac joint pain M53.3 Muscle spasm M62.838 Right groin pain R10.31
[2023-08-27 09:26] VITALS: BP 129/83; PULSE 85; O2SAT 97; BMI 28.0
== END 2023-08-27 09:45 | disposition home or self-care (01) ==
PROVIDERS: PCP Internal Medicine; Visit Provider Nurse Practitioner Family
DX: M47.817 Spondylosis without myelopathy or radiculopathy, lumbosacral region (principal); M54.16 Radiculopathy, lumbar region; M54.59 Other low back pain; M54.51 Vertebrogenic low back pain; M53.3 Sacrococcygeal disorders, not elsewhere classified; M62.838 Other muscle spasm; R10.31 Right lower quadrant pain
CPT/HCPCS: 99214

== ENCOUNTER → 2023-08-27 09:10 | Outpatient (BNVA) | payer MEDICARE, MEDICAID, SELFPAY | PROVIDERS: PCP Internal Medicine; Visit Provider Nurse Practitioner Family | DX: M47.27 Other spondylosis with radiculopathy, lumbosacral region (principal); M54.59 Other low back pain; M54.51 Vertebrogenic low back pain; M53.3 Sacrococcygeal disorders, not elsewhere classified; M62.838 Other muscle spasm; R10.31 Right lower quadrant pain | CPT/HCPCS: 99212 ==

== ENCOUNTER 2023-09-12 16:27 | Outpatient (REF) | payer MEDICARE, MEDICAID, SELFPAY ==
--- NOTE | ~2023-09-12 | XR_ITS ---
EXAMINATION: XR KNEE, LEFT CLINICAL INFORMATION: Acute on chronic left knee pain history of osteoarthritis COMPARISON: X-rays of the left knee November 2018 TECHNIQUE: Four views of the left knee. FINDINGS: Small marginal osteophytes about the medial compartment without joint space narrowing indicative of mild osteoarthritis. Lateral compartment and patellofemoral compartment unremarkable. Moderate joint effusion. XR/XR knee LT 2V IMPRESSION: 1. Mild osteoarthritis unchanged. 2. Moderate joint effusion.
[2023-09-12 17:49] LABS: MANUAL DIFF FLAG NO
[2023-09-12 17:52] LABS: Basophils Absolute Auto 0.1 X10*3/uL (0.0-0.2); Basophils Percent Auto 0.8 % (0-2); Eosinophils Absolute Auto 0.2 X10*3/uL (0.0-0.4); Eosinophils Percent Auto 1.8 % (0-4); Hematocrit 47.7 % (42.0-52.0); Hemoglobin 15.7 g/dl (14.0-18.0); Imm Gran Abs Auto 0.04 X10*3/uL (0.00-0.03); Imm Gran Pct Auto 0.5 % (0.0-0.4); Lymphocytes Absolute Auto 2.4 X10*3/uL (1.2-4.9); Lymphocytes Percent Auto 27.2 % (20-40); Mean Corpuscular HGB Conc 32.9 g/dl (31.0-36.0); Mean Corpuscular Volume 82.1 fL (80.0-98.0); Mean Platelet Volume 9.5 fL (9.4-12.4); Monocytes Absolute Auto 0.8 X10*3/uL (0.1-1.2); Monocytes Percent Auto 9.5 % (2-11); Neutrophils Absolute Auto 5.3 x10*3/uL (2.0-8.3); Neutrophils Percent Auto 60.2 % (45-73); Platelet Count 319 X10*3/uL (160-400); Red Blood Count 5.81 X10*6/uL (4.60-5.80); White Blood Count 8.8 X10*3/uL (4.8-10.8)
[2023-09-12 18:18] LABS: C Reactive Protein 0.73 mg/dL (< or = 0.50)
[2023-09-12 18:39] LABS: Erythrocyte Sedimentation Rate 7 MM/HR (0-15)
== END 2023-09-12 16:28 | disposition home or self-care (01) ==
LOC: HO.CHCLDS 16:27
PROVIDERS: PCP Internal Medicine; Visit Provider Internal Medicine
DX: M25.562 Pain in left knee (principal); G89.29 Other chronic pain
CPT/HCPCS: 36415; 73560; 85025; 85652; 86140

== ENCOUNTER 2023-10-04 11:38 | Outpatient (AMB) | payer MEDICARE, MEDICAID, SELFPAY ==
--- NOTE | 2023-10-04 11:41 | MHC.OFFVIS ---
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 Accompanied by: Self / Same As Patient Allergies No Known Allergies Allergy (Verified 10/04/23 22:05) Medication List - Last Reconciled 10/04/23 by BREE Hairston-ARELI atorvastatin 40 mg PO DAILY cane As directed celecoxib 100 mg PO BID enalapril maleate 20 mg PO DAILY gabapentin 300 mg PO BEDTIME 30 days hydrochlorothiazide 25 mg PO DAILY hydrocodone-acetaminophen 5-325 mg 1 tab PO BID PRN 10 days lisinopril 20 mg PO DAILY methocarbamol 750 mg PO BID PRN 30 days metoprolol succinate ER 100 mg PO DAILY multivitamin 1 tab PO DAILY naloxone 4 mg/actuation (Narcan) 4 mg intranasal Q2M PRN omeprazole 40 mg PO DAILY peg 3350-electrolytes 236-22.74-6.74 -5.86 gram (Golytely) 240 mL PO Q10M 1 day tamsulosin 0.4 mg PO BEDTIME 30 days trazodone 50 mg PO BEDTIME PRN triamcinolone acetonide 0.1% topical BID HPI Comments Details: Maximo is a very pleasant 73-year-old male patient of Dr. Maxi Harvey. He has a past medical history of hypertension, lumbar radiculitis, psoriasis, GERD, hyperlipidemia, osteoarthritis, gout, and chronic headaches. He presents to the office today for follow-up. Of note, patient was seen approximately 2 months ago as new patient for bladder wall thickening at which time he was started on Flomax and a PSA was ordered for further assessment evaluation. These results were reviewed with the patient today. PSA 08/21 2.3. In discussion with the patient today reports to be doing and feeling well urologically. He currently denies any bothersome urinary issues or concerns. He reports feeling Flomax has been helpful with his urinary stream and episodes of nocturia he had previously been experiencing. Reports nocturia only one time per night. He discusses his main concern is his chronic back pain. He reports having followed up with minimally invasive spine center here at [facility] in his not a surgical candidate. He continues to follow up with pain management for SCS trial and implant for chronic/ongoing back pain. In office urinalysis results reviewed with the patient today. PVR 16 mL. He otherwise denies incontinence, hematuria, dysuria, foul smelling urine, changes to urinary stream, flank pain, fever, and or chills. He otherwise offers no other issues or concerns at this time. 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 Review of Systems Const Reports no additional complaints Eyes Reports no additional complaints ENT Reports no additional complaints Card Reports no additional complaints Resp Reports no additional complaints GI Reports as per HPI Reports as per HPI Musc Reports as per HPI Neuro Reports no additional complaints Psych Reports no additional complaints Endo Reports no additional complaints Guillaume/Lymph Reports no additional complaints Aller/Immun Reports no additional complaints Physical Exam Const General: cooperative, healthy appearing, comfortable, no acute distress, well developed, alert and awake Orientation/consciousness: patient oriented x3 Limitations: no limitations HEENT Head: Yes normal to inspection, Yes normocephalic and Yes atraumatic Ears: hearing grossly normal bilaterally Eyes General: appearance normal, both eyes and all related structures Neck Neck: Yes normal visual inspection and Yes trachea midline Chest Chest palpation & inspection: normal inspection of the chest Resp Effort & Inspection: normal respiratory effort and able to speak in complete sentences Cardio Rate: regular rate GI Inspection: Yes normal to inspection General: Yes no CVA tenderness Back/Spine/Pelvis Back: no CVA tenderness Skin General skin exam: no rashes or lesions noted Neuro General: patient oriented x3 Extrem General: Yes normal to inspection Psych Appearance: grossly normal and well kempt Mental Status: mental status grossly normal Speech and movement: Normal speech and movement present and Clear speech present Affect: normal affect Attitude: cooperative Thought process: Normal thought process present Thought content: Normal thought content present Insight: Fair insight present (Psych) Judgement: Fair judgement present (Psych) Office Procedures Post Void Residual Post Residual Void Post Void Residual (PVR): [id number] Void Residual by ultrasound Assessment & Plan Assessment & Plan (1) Incomplete bladder emptying: Code(s): R33.9 - Retention of urine, unspecified Category: Medical (2) Bladder wall thickening: Code(s): N32.89 - Other specified disorders of bladder Category: Medical Plan In office urinalysis results reviewed with the patient today. PVR 16 mL. Continue Flomax as discussed and prescribed; refill provided. Recent PSA results reviewed with the patient today; as noted above. Patient reports be happy with current voiding parameters on Flomax; will continue. He currently denies any bothersome urinary issues or concerns. Follow-up in 6 months with PVR; or sooner with any issues, concerns, and or questions. Orders: Orders AMB Urinalysis Automated Today Z13.9 - Encounter for screening, unspecified AMB Post Void Residual by ultrasound Today R33.9 - Retention of urine, unspecified Medications: Changed From tamsulosin 0.4 mg PO BEDTIME 30 days 30 caps 1RF N40.1 - Benign prostatic hyperplasia with lower urinary tract symptoms, R35.1 - Nocturia To tamsulosin 0.4 mg PO BEDTIME 90 days 90 caps 3RF N40.1 - Benign prostatic hyperplasia with lower urinary tract symptoms, R35.1 - Nocturia Discontinued peg 3350-electrolytes 236-22.74-6.74 -5.86 gram (Golytely) until fecal effluent is clear; do not exceed a total volume of 2,000 mL Discontinued Reason: Patient Completed Course 240 mL PO Q10M 1 day 4,000 mL 0RF Z12.11 - Encounter for screening for malignant neoplasm of colon Patient Instructions: The patient had an opportunity to ask questions regarding the treatment plan. All questions were answered. Physical exam, labs, and imaging were discussed and reviewed in detail. As well as risks, benefits, and discussion of treatment choices. No major barriers to understanding were identified. The patient expressed understanding and agreement with the above treatment plan. The patient was made aware they should contact our office by phone for worsening of their current condition, the appearance of new symptoms, or with any questions or concerns. Compliance is encouraged with any medications and follow up testing that is ordered. It is a privilege to be allowed the opportunity to participate in? your urological care.? Again, if you have any questions or concerns If you have any questions or concerns please do not hesitate to contact me. The office is [phone]. This note is constructed using voice recognition software. While every effort has been made to ensure accuracy senior talent management consultant errors may have been included. Yours sincerely, BREE Hairston-ARELI Coding Level of Care Code Est Pt Level 3 (34387) Diagnoses Incomplete bladder emptying R33.9 Bladder wall thickening N32.89 CPT Codes Post Residual Void - PVR CPT Code: 53133-Nbeb Void Residual by ultrasound ([id number])
== END 2023-10-04 12:08 | disposition home or self-care (01) ==
PROVIDERS: PCP Internal Medicine; Visit Provider Nurse Practitioner Family
DX: R33.9 Retention of urine, unspecified (principal); N32.89 Other specified disorders of bladder
CPT/HCPCS: 99213

== ENCOUNTER → 2023-10-04 11:38 | Outpatient (BNVA) | payer MEDICARE, MEDICAID, SELFPAY | PROVIDERS: PCP Internal Medicine; Visit Provider Nurse Practitioner Family | DX: R33.9 Retention of urine, unspecified (principal); N32.89 Other specified disorders of bladder | CPT/HCPCS: 51798; 99212 ==

== ENCOUNTER 2023-10-30 12:59 | Outpatient (AMB) | payer MEDICARE, MEDICAID, SELFPAY ==
--- NOTE | 2023-10-30 13:07 | MHC.OFFVIS ---
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 He presents today to follow-up on the status of prior authorization for spinal cord stimulation trial. He was last seen in our office in July. Prior authorization for insurance was submitted on 10/12/2023 after patient past behavioral evaluation. Patient reports he has been taking Tylenol, NSAIDs, gabapentin once daily, lidocaine patches and heat applications with continued symptoms. He rates his pain today 9/10, worse with walking and bending, prolonged standing and most of his ADLs. Patient also reports chronic leg movement during the night and would like to be referred to Neurology for further evaluation. Denies any recent cough, cold, infection, fever or other significant changes in medical history since last office visit. PRIOR: Patient presents today after Neurosurgical evaluation to discuss spinal cord stimulation trial and implant. Neurosurgery evaluation by Hai MCCLOUD: 73-year-old male presents for evaluation of chronic low back pain, it is paraspinal and distribution, right greater than left, worse with activity and standing walking seems to get better when he sits down. His MRI shows some mild to moderate degenerative disc disease with to Schmorl's nodes projecting into the endplates at L2-3 and L4-5. There is some reactive changes to this area. I sent the patient for flexion-extension x-rays. There is no signs of instability. I reviewed the situation with Dr. Fernández, we typically would not treat Schmorl's nodes with surgery, specifically spinal fusion which is the standard for back pain. At this point I think he should consider moving ahead with the option of the spinal cord stimulator trial. The trialed and failed therapy has been reviewed with the patient. The risks, consequences, alternatives, and benefits of various treatment options were discussed with the patient in great detail, including conservative management, injections and procedures. Plan to proceed with the SCS once patient passes Behavioral Evaluation. Right hip MRI showed mild right hip osteoarthritis and trace joint effusion and diffuse urinary bladder wall thickening with mild trabeculation. He was seen by Urology on 08/17/23 and started on tamsulosin at bedtime and has follow up for PSA and PVR. Patient reports right hip pain with weight bearing and walking but reports back pain is more troublesome than hip pain. Patient continues to partially manage his back symptoms with Tylenol, Celecoxib, gabapentin and methocarbamol. He tried short script of tramadol with minimal pain relief. Patient denies any fever, chills, weight loss, abdominal pain, bladder or bowel dysfunction or saddle anesthesia. Past Procedures: 07/05/23: Bilateral L4-L5 TFESI-30% leg pain relief, 0% back pain relief 11/25/21: Right L5-S1 TFESI-50% for 4 weeks 12/08/20:?Bilateral L4, L5 joint aspiration and Intra-articular facet steroid injection ? More than 60% relief on the left side, and about 40% relief on the right side which lasted approximately 4 weeks.??? 01/26/21:?Right Parasagittal L4-L5 Interlaminar JAMEEL ? 60% relief on the right side 03/23/21:?Left L3-L4-L5 MBB RFA w/ fluoro- 50%?? 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 Alert and oriented. Mood and affect appropriate. Follows and participates in conversation appropriately. Respiratory effort is unlabored. Able to transition from sit to stand unassisted. Ambulates with bilaterally normal heel strike and toe off, reports imbalance on right side. General: Yes no CVA tenderness Back/Spine/Pelvis Other: Limited lumbar ROM due to pain. Lumbar extension and flexion reproduce moderate pain. No midline tenderness to palpation in the thoracic or lumbar spine. Moderate paraspinal tenderness to palpation in the lower thoracic and lumbar spine, right>left. Bilateral mild groin pain with I/E hip rotations bilaterally. Mild TTP to bilateral GTB. Valsalva maneuver negative. Back: no CVA tenderness Cervical Spine: cervical ROM normal, cervical muscular tenderness and No Cervical spine tenderness Thoracic/Lumbar Spine: thoracic and lumbar spine normal to inspection, No Thoracic/lumbar spine scar(s), Lasegue's sign positive bilateral and diffuse, pain with thoraco-lumbar ROM, paraspinal muscle tenderness on the right greater than left, thoraco-lumbar ROM limited, No thoracic spinal tenderness, lumbar spinal tenderness (L4-S1) and straight leg raise positive right at 40 degrees Pelvis: buttock tenderness on the right and sciatic notch tenderness Sacroiliac joints: bilaterally (+Tereso's, +Pelvic compression, +Gaenslen) tender to palpation Skin General skin exam: no rashes or lesions noted Extrem General: Yes capillary refill normal, Yes no clubbing, cyanosis or edema and Yes no calf tenderness Results Reviewed Results Reviewed: Lumbar spine, AP pelvis and bilateral hips 03/27/23 INDICATION: Bilateral hip pain, lumbar radiculopathy COMPARISON: 12/24/18 lumbar spine FINDINGS: Lumbar spine: Lumbar lordotic straightening. 5 lumbar type vertebral bodies are identified and are maintained in height. Mild L4-L5 and L5-S1 disc space narrowings. Lower lumbar facet hypertrophic changes. Pedicles and SI joints within normal limits. No significant hip joint narrowings. Vascular calcifications. Pelvis and bilateral hips: Degenerative changes lower lumbar spine. SI joints within normal limits.. Hip joints are maintained. No fracture or dislocation. Pelvic soft tissue density likely bladder. IMPRESSION: Lumbar lordotic straightening, mild L4-L5 and L5-S1 disc disease. Unremarkable pelvis and bilateral hips. MR LUMBAR SPINE WITHOUT CONTRAST 06/20/23 CLINICAL INFORMATION: Lumbar region radiculopathy. COMPARISON: Lumbar spine radiographs 03/27/2023 and lumbar spine MRI 11/08/2020. TECHNIQUE: MRI of the lumbar spine was obtained using routine sequences without contrast. FINDINGS: 5 nonrib-bearing lumbar-type vertebral bodies. Lumbar alignment is normal. The vertebral body heights are maintained. Inferior endplate Schmorl's nodes with adjacent fatty marrow signal change and bone marrow edema at L2 and L4 are again noted with decreased bone marrow edema at L2 and increased bone marrow edema at L4 when compared to the prior exam. There is disc volume loss and disc desiccation at L5-S1. There is disc desiccation at L2-L3, L3-L4, L4-L5, and L5-S1. Conus terminates at the L1 level. The partially imaged bladder wall appears significantly thickened on the localizer series which can be further assessed with ultrasound. L1-L2: Disc contour is normal. No central canal stenosis and no foraminal stenosis. L2-L3: Small annular disc bulge and mild bilateral facet arthropathy. No central canal stenosis. No significant foraminal stenosis. L3-L4: Small annular disc bulge. Mild bilateral facet arthropathy. No central canal stenosis and no foraminal stenosis. L4-L5: Diffuse annular disc bulge and moderate bilateral facet arthropathy. Findings in concert result in similar narrowing of the subarticular zones with mass effect on the traversing L5 nerve roots bilaterally. No significant foraminal stenosis. No significant central canal stenosis. L5-S1: Diffuse annular disc bulge exhibiting a dorsal annular fissure that is in part disc osteophyte and moderate bilateral hypertrophic facet arthropathy. No central canal stenosis. Mild right-sided foraminal encroachment without exiting nerve root compression. IMPRESSION: - The partially imaged bladder wall appears significantly thickened on the localizer series which can be further assessed with ultrasound. - At L4-L5, multifactorial degenerative changes result in similar narrowing of the subarticular zones with mass effect on the traversing L5 nerve roots bilaterally. - At L5-S1, there is a dorsal annular fissure. - Inferior endplate Schmorl's nodes with adjacent fatty marrow signal change and bone marrow edema at L2 and L4 are again noted with decreased bone marrow edema at L2 and increased bone marrow edema at L4 when compared to the prior exam. MR HIP WITHOUT CONTRAST, RIGHT 08/10/23 CLINICAL INFORMATION: Right hip pain which is worsening. Pinching sensation. COMPARISON: Bilateral hip and pelvic radiographs dated 03/27/2023. TECHNIQUE: MRI of the right hip was obtained using routine sequences on a high-field strength magnet. FINDINGS: ACETABULAR LABRUM: No displaced labral tear. ARTICULAR CARTILAGE/BONE: Superior articular cartilage signal heterogeneity with focal full-thickness fissuring at the lateral chondrolabral junction where there is minimal subchondral cystic change. Tiny marginal osteophytes. No stress reaction, fracture, or avascular necrosis. No concerning lytic or blastic osseous lesion. MUSCLES/TENDONS: Intact. JOINT FLUID/BURSA: Trace right hip joint effusion. INTRAPELVIC STRUCTURES: Diffuse urinary bladder wall thickening with mild trabeculation. No associated inflammatory change. Prostatomegaly. IMPRESSION: 1. Mild right hip osteoarthritis and trace joint effusion. 2. No stress reaction, fracture, or avascular necrosis. 3. Diffuse urinary bladder wall thickening with mild trabeculation. No associated inflammatory change. Prostatomegaly. Assessment & Plan Assessment & Plan (1) Lumbar radiculopathy: Code(s): M54.16 - Radiculopathy, lumbar region Category: Medical (2) Intractable low back pain: Code(s): M54.59 - Other low back pain Category: Medical (3) Lumbar and sacral spondyloarthritis: Code(s): M47.817 - Spondylosis without myelopathy or radiculopathy, lumbosacral region Category: Medical (4) Restless leg syndrome: Code(s): G25.81 - Restless legs syndrome Category: Medical (5) Muscle spasm: Code(s): M62.838 - Other muscle spasm Category: Medical (6) Chronic pain syndrome: Code(s): G89.4 - Chronic pain syndrome Category: Medical Plan Patient passed psychology clearance in anticipation of SCS trial. PA for insurance was sent on 10/12/23, still pending. We will ask our surgical services tech to follow up on PA status. We reviewed risks and benefits of SCS trial and implant procedures and all questions were answered to patient satisfaction. Will proceed with the [employer] Lumbar SCS trial pending PA approval. Continue Methocarbamol, gabapentin, Tylenol, NSAIDs prn. Short script send for Vicodin for moderate-severe back pain only. Continue to monitor for any side effects. Patient has Narcan at home, reports understanding on how to use it. Refills also sent for gabapentin and lidocatine patches. MassPat reviewed and consistent with patient's history. Neurology Referral to further evaluate for restless leg syndrome. All questions and concerns have been answered and patient agreed with the plan. Follow up after SCS trial and sooner as needed. Orders: Referrals Neurology Referral G25.81 - Restless legs syndrome Medications: New gabapentin 300 mg PO BID 30 days 60 caps 0RF pain M54.16 - Radiculopathy, lumbar region, M54.59 - Other low back pain lidocaine 5% leave on most painful area for up to 12 hrs topical 30 days 30 ea 1RF pain M47.817 - Spondylosis without myelopathy or radiculopathy, lumbosacral region Changed From hydrocodone-acetaminophen 5-325 mg Partial Fill upon patient request. 1 tab PO BID 10 days PRN 20 tabs 0RF pain M47.817 - Spondylosis without myelopathy or radiculopathy, lumbosacral region, M54.16 - Radiculopathy, lumbar region, M54.59 - Other low back pain To hydrocodone-acetaminophen 7.5-325 mg Partial Fill upon patient request. 1 tab PO BID 10 days PRN 20 tabs 0RF pain M47.817 - Spondylosis without myelopathy or radiculopathy, lumbosacral region, M54.16 - Radiculopathy, lumbar region, M54.59 - Other low back pain Coding Level of Care Code Est Pt Level 4 (87063) Diagnoses Lumbar radiculopathy M54.16 Intractable low back pain M54.59 Lumbar and sacral spondyloarthritis M47.817 Restless leg syndrome G25.81 Muscle spasm M62.838 Chronic pain syndrome G89.4
[2023-10-30 13:15] VITALS: BP 134/80; PULSE 80; O2SAT 97; BMI 27.8
== END 2023-10-30 13:32 | disposition home or self-care (01) ==
PROVIDERS: PCP Internal Medicine; Visit Provider Nurse Practitioner Family
DX: M54.16 Radiculopathy, lumbar region (principal); M54.59 Other low back pain; M47.817 Spondylosis without myelopathy or radiculopathy, lumbosacral region; G25.81 Restless legs syndrome; M62.838 Other muscle spasm; G89.4 Chronic pain syndrome
CPT/HCPCS: 99214

== ENCOUNTER → 2023-10-30 12:59 | Outpatient (BNVA) | payer MEDICARE, MEDICAID, SELFPAY | PROVIDERS: PCP Internal Medicine; Visit Provider Nurse Practitioner Family | DX: M54.16 Radiculopathy, lumbar region (principal); M47.817 Spondylosis without myelopathy or radiculopathy, lumbosacral region; G25.81 Restless legs syndrome; M62.838 Other muscle spasm; G89.4 Chronic pain syndrome | CPT/HCPCS: 99212 ==

== ENCOUNTER 2023-12-17 09:28 | Outpatient (REF) | payer MEDICARE, MEDICAID, SELFPAY ==
[2023-12-17 14:41] LABS: Alanine Aminotransferase 28 U/L (0-40); Albumin Level 4.1 g/dL (3.5-5.0); Alkaline Phosphatase 78 U/L (39-117); Anion Gap 15 (12-20); Aspartate Amino Transferase 21 U/L (5-37); Bilirubin Total 0.5 mg/dL (0.0-1.0); Blood Urea Nitrogen 15 mg/dL (9-16); Calcium 9.9 mg/dL (8.4-10.2); Carbon Dioxide 27 mmol/L (22-29); Chloride 103 mmol/L (96-108); Cholesterol 186 mg/dL (<200); Estimated Glomerular Filt Rate 56; Glucose Random 85 mg/dL (60-115); HDL Cholesterol 43 mg/dL (>40); LDL Cholesterol Calculated 122 mg/dL (<100); Potassium 3.9 mmol/L (3.3-5.1); Sodium 141 mmol/L (135-145); Total Protein 6.8 g/dL (6.5-8.0); Triglycerides 109 mg/dL (<150)
== END 2023-12-17 09:29 | disposition home or self-care (01) ==
LOC: HO.CHCLDS 09:28
PROVIDERS: Visit Provider Internal Medicine
DX: I10 Essential (primary) hypertension (principal)
CPT/HCPCS: 36415; 80053; 80061

== ENCOUNTER 2024-02-20 10:00 | Day surgery (SDC) | payer MEDICARE, MEDICAID, SELFPAY ==
[2024-02-18 15:51] VITALS: BMI 27.8
--- NOTE | 2024-02-19 12:35 | HO.ANESPROP2 ---
HPI - Anesthesia Eval Consult details Narrative: 73yo M for Spinal Cord Stimulation Trial [facility] Active Problems Active Problems: All Active Problems Chronic pain syndrome (Acute) Restless leg syndrome (Acute) Intractable low back pain (Acute) Incomplete bladder emptying (Acute) Right groin pain (Acute) Bladder wall thickening (Acute) Sacroiliac joint pain (Acute) Muscle spasm (Acute) Vertebrogenic low back pain (Acute) Lumbar radiculopathy (Acute) Bilateral hip pain (Acute) Colon cancer screening (Acute) Pre-op examination (Acute) Patellofemoral arthritis of right knee (Acute) Osteoarthritis of right knee (Acute) Sacroiliac joint dysfunction of left side (Acute) Lumbar and sacral spondyloarthritis (Acute) Lumbar radiculitis (Acute) Groin pain, chronic, left (Acute) Past Medical History Medical History Hypertension Lumbar radiculitis Low back pain Psoriasis Gastroesophageal reflux Hyperlipidemia Localized osteoarthritis of both knees Arthritis Gout Chronic headaches Surgical History Surgical History History of open reduction and internal fixation (ORIF) procedure Social History Social History Are you a primary residential care facility manager to a significant other at home: No Do you presently have visiting nurse or other home services: No Patient Tobacco Use Status: Never used Tobacco Current occupational status: disabled 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 Meds Allergies Allergy/AdvReac Type Severity Reaction Status Date / Time No Known Allergies Allergy Verified 02/27/24 10:16 Home Medications ?Medication ?Instructions ?Recorded ?Confirmed ?Last Taken ?Type atorvastatin 40 mg tablet 40 mg PO DAILY 10/08/20 02/27/24 Unknown History enalapril maleate 20 mg tablet 20 mg PO DAILY 10/08/20 02/27/24 02/20/24 History hydrochlorothiazide 25 mg tablet 25 mg PO DAILY 10/08/20 02/27/24 Unknown History metoprolol succinate 100 mg 100 mg PO DAILY 10/08/20 02/27/24 02/20/24 History tablet,extended release 24 hr multivitamin 1 tab PO DAILY 10/08/20 02/27/24 Unknown History omeprazole 40 mg capsule,delayed 40 mg PO DAILY 10/08/20 02/27/24 Unknown History release trazodone 50 mg tablet 50 mg PO BEDTIME PRN 10/08/20 02/27/24 Unknown History triamcinolone acetonide 0.1 % topical BID 10/08/20 02/27/24 Unknown History topical ointment lisinopril 20 mg tablet 20 mg PO DAILY 08/17/23 02/27/24 Unknown History Exam Height,Weight and Vital Signs: Height 6 ft Weight 92.986 kg Pertinent Lab Results Pertinent Lab Results: Laboratory Tests 09/12/23 12/17/23 16:31 09:30 WBC 8.8 Hgb 15.7 Hct 47.7 Plt Count 319 D Sodium 141 Potassium 3.9 Chloride 103 Carbon Dioxide 27 BUN 15 Creatinine 1.26 Assessment and Plan Assessment Anesthesia Assessment: Chart Reviewed
[2024-02-20 11:10] VITALS: BP 143/97; PULSE 78; RESP 14; TEMP 36.4; O2SAT 99; BMI 28.1
[2024-02-20] MEDS: Lactated Ringers 1,000 ML 100 ML IVCONT (11:10)
[2024-02-20 12:01] LABS: MRSA Nasal PCR NEGATIVE (Negative); SA Nasal PCR NEGATIVE (Negative)
--- NOTE | 2024-02-20 12:39 | MHC.SHP ---
Pre-Procedural Eval Section A - 24 Hr Update-Section A only Date of Service: 02/20/24 The patient is an INPATIENT: No Changes since office visit: Yes Patient answered all questions The patient has been examined within 24 hours of the surgical procedure. The History & Physical has been completed within 30 days and I have reviewed it.: No Section B - Complete if H&P > 30 days Chief Complaint: Lumbar radiculopathy Relevant Family History (Specify if Yes): No Relevant Social History: None Present Medications: see Short Stay Collaborative assessment Medical History: No relevant PMH History of Previous Operations: No relevant previous surgery Allergies: Allergies Allergy/AdvReac Type Severity Reaction Status Date / Time No Known Allergies Allergy Verified 02/20/24 10:37 Review of Systems Sugical H&P ROS: Negative: Constitution, Cardiovascular and Respiratory Exam Surgical H&P Exam: Normal: HEENT, Normal: Heart and Normal: Lungs Plan Diagnosis/Plan: Unchanged I have reviewed the history and physical and performed a pertinent physical examination on my patient. No changes have occurred unless specified. Time Spent With Patient Time: Total time managing care of this patient today ____ minutes.
--- NOTE | 2024-02-20 12:41 | P.BOP_ITS ---
Brief Operative Note Date of Service: 02/20/24 Pre-op diagnosis: Lumbar radiculopathy Post-op diagnosis: same Procedure: Spinal cord stimulation trial Implants: Medtr[employer] SCS trial leads Surgeon: Ta Giordano MD Anesthesia: MAC Was an Men'S Swim Coach used for this Procedure?: No Estimated blood loss (mL): 5 Pathology: none sent Condition: stable Disposition: PACU
--- NOTE | 2024-02-20 12:41 | W.PM.OPN ---
Operative Note Operative Note Date of Service: 02/20/24 Narrative: Preoperative diagnosis: Lumbar radiculopathy Postoperative diagnosis: Same Procedure: Percutaneous Spinal Cord Stimulator Trial, lumbar After obtaining written consent, pre-procedure blood pressure and heart rate were recorded and are in the nursing record for review. A peripheral IV was started. Antibiotics, cefazolin 2 gram, were given intraoperatively. The patient was placed in a prone position.? The patient was sedated by the anesthesiologist. The thoracolumbar area was widely prepped with ChloraPrep, allowed to dry and draped in sterile fashion. Fluoroscopy was used to identify the target interlaminar spaces and appropriate needle insertion sites. The skin and subcutaneous tissue was anesthetized with 0.5% lidocaine. Epidural access was 1st attempted in the left T12-L1 interspace and then in the left L1-L2 interspace but reliable epidural access could not be obtained. Attention was then diverted towards the right side and 2 separate 14 gauge epi med needles were advanced in a right paramedian approach to the epidural space opening at L1-L2 interspace, where loss of resistance was found using air. No paresthesias were elicited with needle placement. No CSF or heme was present upon needle placement. A guide wire was then used to confirm placement into the epidural space under live fluoroscopy. The 1x8 stimulator lead wire was then threaded to the top of T8 in the right parasagittal position and middle of T8 in the left parasagittal position under live fluoroscopy. The leads advanced midline and dorsally. The needles were then completely removed under live fluoroscopy. The stimulator wires were then secured with Steri-Strips, Mastisol, tegaderm for skin dressing. Appropriate coverage was confirmed on both sides. The patient tolerated the procedure well and no complications were encountered. Following the procedure the patient's vital signs were stable. The patient was discharged home in good condition after being given discharge instructions. Time Out: Immediately prior to the procedure, the following was verbally confirmed that there is a signed consent form and that the correct patient, planned procedure, site and side are consistent with documentation and that necessary equipment and/or blood products are available prior to the start of the case. Complications: none EBL: <2 cc
[2024-02-20 14:25] VITALS: BP 136/78; PULSE 77; RESP 16; TEMP 36.1; O2SAT 96
[2024-02-20 14:40] VITALS: BP 152/91; PULSE 70; RESP 16; O2SAT 96
[2024-02-20 14:55] VITALS: BP 160/95; PULSE 71; RESP 18; TEMP 36.2; O2SAT 98
== END 2024-02-20 15:31 | disposition home or self-care (01) ==
PROVIDERS: Registered Nurse Emergency; PCP Internal Medicine; Visit Provider Internal Medicine
PROC: (CPT 63650; principal; 2024-02-20 12:30)
DX: M54.16 Radiculopathy, lumbar region (principal); G89.4 Chronic pain syndrome; M54.50 Low back pain, unspecified; M51.46 Schmorl's nodes, lumbar region; M47.817 Spondylosis without myelopathy or radiculopathy, lumbosacral region; M16.11 Unilateral primary osteoarthritis, right hip; G25.81 Restless legs syndrome; M62.838 Other muscle spasm; M10.9 Gout, unspecified; M17.0 Bilateral primary osteoarthritis of knee; I10 Essential (primary) hypertension; E78.5 Hyperlipidemia, unspecified; Z79.899 Other long term (current) drug therapy
CPT/HCPCS: 63650 ×2; 87640; 87641; C1897; J0690; J1100; J2003; J2250; J2405; J2704; J2795; J3010

== ENCOUNTER → 2024-02-20 10:00 | Outpatient (BNV) | payer MEDICARE, MEDICAID, SELFPAY | PROVIDERS: PCP Internal Medicine; Visit Provider Internal Medicine | DX: G89.4 Chronic pain syndrome (principal) | CPT/HCPCS: 63650 ==

== ENCOUNTER 2024-02-27 10:06 | Outpatient (AMB) | payer MEDICARE, MEDICAID, SELFPAY ==
--- NOTE | 2024-02-27 10:13 | A.OFFVIS_ITS ---
Vital Signs 02/27/24 10:15 Height 6 ft Weight 207 lb BMI 28.1 BP 139/87 Blood Pressure Location Lt brachial Position Sitting Respiration 15 Pulse 73 Pulse Source Pulse Oximeter Pulse Oximetry (%) 96 Oxygen Delivery Method Room Air Intake Visit Reasons: lead pull Allergies No Known Allergies Allergy (Verified 02/27/24 10:16) Medication List - Last Reconciled 02/27/24 by Jessika Orourke LPN atorvastatin 40 mg PO DAILY cane As directed celecoxib 100 mg PO BID enalapril maleate 20 mg PO DAILY gabapentin 300 mg PO BID hydrochlorothiazide 25 mg PO DAILY hydrocodone-acetaminophen 7.5-325 mg 1 tab PO BID PRN 10 days lidocaine 5% 1 patch topical DAILY 30 days lisinopril 20 mg PO DAILY methocarbamol 750 mg PO BID PRN 30 days metoprolol succinate ER 100 mg PO DAILY multivitamin 1 tab PO DAILY naloxone 4 mg/actuation (Narcan) 4 mg intranasal Q2M PRN omeprazole 40 mg PO DAILY tamsulosin 0.4 mg PO BEDTIME 90 days trazodone 50 mg PO BEDTIME PRN triamcinolone acetonide 0.1% topical BID HPI HPI lead pull: Details: 73-year-old male who presents today to the office for evaluation of lead pull. The patient reports >80% relief following the procedure. Patient reports he is happy with the trial. He is interested in proceeding with implantion of device. He is requesting a medication for constipation. He is taking metamucil and drinks orange juice to help with constipation. Past procedures 02/20/24: Percutaneous Spinal Cord Stimulator Trial, lumbar: >80% relief. 07/05/23: Transforaminal epidural steroid injection, Bilateral L4-5 11/25/21: Transforaminal epidural steroid injection, Right L5/S1: % relief. 10/12/21: Sacroiliac Joint Injection, Left: % relief. 08/03/21: Transforaminal epidural steroid injection, Bilateral L4: % relief. 03/23/21: Radiofrequency lesioning medial branch nerves, Left L3, L4 medial branches and L5 dorsal ramus (L4/5 and L5/S1) (2 levels, 3 nerves): % relief. 01/26/21: Right Parasagittal L4-L5 Interlaminar JAMEEL ? 60% relief on the right side. 12/08/20: Bilateral L4,L5 joint aspiration and Intra-articular facet steroid injection ? More than 60% relief on the left side, and about 40% relief on the right side which is lasted approximately 4 weeks. 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 Alert and oriented. Mood and affect appropriate. Follows and participates in conversation appropriately. Respiratory effort is unlabored. Able to transition from sit to stand unassisted. Ambulates with bilaterally normal heel strike and toe off. Lead insertion sites were clean, dry, and intact. Leads were pulled. Top tips were clean and intact. Results Reviewed Results Reviewed: Date: 08/21/23 XR LUMBOSACRAL SPINE WITH OBLIQUES FINDINGS: Slight leftward curvature of the lumbar spine with straightening of the normal lumbar lordosis. Five (5) lumbar type vertebral bodies identified. Lumbar vertebral body heights are preserved. Lumbar spondylosis with mild loss of disc space height at L4-L5 and L5-S1 redemonstrated. Facet arthritis in the lower lumbar spine. Bilateral sacroiliac joints are symmetric. Alignment preserved on flexion and extension views. IMPRESSION: Lumbar spondylosis with mild loss of disc space height at L4-L5 and L5-S1 redemonstrated. Assessment & Plan Assessment & Plan (1) Intractable low back pain: Code(s): M54.59 - Other low back pain Category: Medical (2) Lumbar radiculopathy: Code(s): M54.16 - Radiculopathy, lumbar region Category: Medical (3) Muscle spasm: Code(s): M62.838 - Other muscle spasm Category: Medical Plan Patient has had more than 80% relief from his SCS trial. He is interested in proceeding with implants, so we will schedule him for lumbar SCS implant with medtronic device. Discussed the risks and benefits of the procedure with the patient in detail. All questions were answered. The patient is on board with the plan. I prescribed polyethylene glycol to take PRN to help with constipation. I also recommended him to increase water intake and include fiber-rich food in the diet. Justification for interventional therapy: ? Patient with average pain > 6/10 ? Patient has exhausted conservative therapy. ? Patient unable to tolerate physical therapy due to pain. ? SCS trial provided more than 80% relief. . Patient has a good understanding of their pain condition and has appropriate mental and social support Scribed for Dr. Giordano by Shahram medical accounts receivable specialist, on 02/27/2024. I, Dr. Giordano, have personally reviewed and agree with the information entered by the scribe. Medications: New polyethylene glycol 3350 17 grams PO DAILY 510 grams 0RF Coding Level of Care Code Est Pt Level 3 (49986) Diagnoses Intractable low back pain M54.59 Lumbar radiculopathy M54.16 Muscle spasm M62.838
[2024-02-27 10:15] VITALS: BP 139/87; PULSE 73; RESP 15; O2SAT 96; BMI 28.1
== END 2024-02-27 11:13 | disposition home or self-care (01) ==
LOC: HO.PMC 10:07
PROVIDERS: PCP Internal Medicine; Visit Provider Internal Medicine
DX: M54.59 Other low back pain (principal); M54.16 Radiculopathy, lumbar region; M62.838 Other muscle spasm
CPT/HCPCS: 99024

== ENCOUNTER → 2024-02-27 10:06 | Outpatient (BNVA) | payer MEDICARE, MEDICAID, SELFPAY | PROVIDERS: PCP Internal Medicine; Visit Provider Internal Medicine | DX: M54.59 Other low back pain (principal); M54.16 Radiculopathy, lumbar region; M62.838 Other muscle spasm | CPT/HCPCS: 99212 ==

== ENCOUNTER 2024-03-26 09:56 | Day surgery (SDC) | payer MEDICARE, OTHER, SELFPAY ==
[2024-03-24 08:58] VITALS: BMI 28.1
--- NOTE | 2024-03-25 09:21 | HO.ANESPROP2 ---
Documented by User: Ana Maria Pierre NP 03/25/24 09:22 HPI - Anesthesia Eval Consult details Narrative: 73yo M for Spinal Cord Stimulation Implant s/p trial 01/2024 with [facility] Active Problems Active Problems: All Active Problems Chronic pain syndrome (Acute) Restless leg syndrome (Acute) Intractable low back pain (Acute) Incomplete bladder emptying (Acute) Right groin pain (Acute) Bladder wall thickening (Acute) Sacroiliac joint pain (Acute) Muscle spasm (Acute) Vertebrogenic low back pain (Acute) Lumbar radiculopathy (Acute) Bilateral hip pain (Acute) Colon cancer screening (Acute) Pre-op examination (Acute) Patellofemoral arthritis of right knee (Acute) Osteoarthritis of right knee (Acute) Sacroiliac joint dysfunction of left side (Acute) Lumbar and sacral spondyloarthritis (Acute) Groin pain, chronic, left (Acute) Lumbar radiculitis (Acute) Past Medical History Medical History Hypertension Lumbar radiculitis Low back pain Psoriasis Gastroesophageal reflux Hyperlipidemia Localized osteoarthritis of both knees Arthritis Gout Chronic headaches Surgical History Surgical History S/P placement of nerve stimulator History of open reduction and internal fixation (ORIF) procedure Social History Social History Are you a primary medicare specialist to a significant other at home: No Do you presently have visiting nurse or other home services: No Patient Tobacco Use Status: Never used Tobacco Have you been hit, kicked, punched, or otherwise hurt by someone within the past year? 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 Meds Allergies Allergy/AdvReac Type Severity Reaction Status Date / Time No Known Allergies Allergy Verified 02/27/24 10:16 Home Medications ?Medication ?Instructions ?Recorded ?Confirmed ?Last Taken ?Type atorvastatin 40 mg tablet 40 mg PO DAILY 10/08/20 03/24/24 03/25/24 History enalapril maleate 20 mg tablet 20 mg PO DAILY 10/08/20 03/24/24 03/26/24 History hydrochlorothiazide 25 mg tablet 25 mg PO DAILY 10/08/20 03/24/24 03/25/24 History metoprolol succinate 100 mg 100 mg PO DAILY 10/08/20 03/24/24 03/26/24 History tablet,extended release 24 hr multivitamin 1 tab PO DAILY 10/08/20 03/24/24 03/25/24 History omeprazole 40 mg capsule,delayed 40 mg PO DAILY 10/08/20 03/24/24 03/26/24 History release lisinopril 20 mg tablet 20 mg PO DAILY 08/17/23 03/24/24 03/25/24 History Exam Height,Weight and Vital Signs: Pertinent Lab Results Pertinent Lab Results: Laboratory Tests 09/12/23 12/17/23 16:31 09:30 WBC 8.8 Hgb 15.7 Hct 47.7 Plt Count 319 D Sodium 141 Potassium 3.9 Chloride 103 Carbon Dioxide 27 BUN 15 Creatinine 1.26 Assessment and Plan Assessment Anesthesia Assessment: Chart Reviewed Documented by User: Clarisse Dougherty MD 03/26/24 11:16 PMFSH Past Medical History Medical History Hypertension Lumbar radiculitis Low back pain Psoriasis Gastroesophageal reflux Hyperlipidemia Localized osteoarthritis of both knees Arthritis Gout Chronic headaches Family History Family history of problems with anesthesia: No Surgical History Surgical History S/P placement of nerve stimulator History of open reduction and internal fixation (ORIF) procedure History of Problems with Anesthesia: No Social History Social History Are you a primary medicare specialist to a significant other at home: No Do you presently have visiting nurse or other home services: No Patient Tobacco Use Status: Never used Tobacco Have you been hit, kicked, punched, or otherwise hurt by someone within the past year? 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 Meds Allergies Allergy/AdvReac Type Severity Reaction Status Date / Time No Known Allergies Allergy Verified 02/27/24 10:16 Home Medications ?Medication ?Instructions ?Recorded ?Confirmed ?Last Taken ?Type atorvastatin 40 mg tablet 40 mg PO DAILY 10/08/20 03/24/24 03/25/24 History enalapril maleate 20 mg tablet 20 mg PO DAILY 10/08/20 03/24/24 03/26/24 History hydrochlorothiazide 25 mg tablet 25 mg PO DAILY 10/08/20 03/24/24 03/25/24 History metoprolol succinate 100 mg 100 mg PO DAILY 10/08/20 03/24/24 03/26/24 History tablet,extended release 24 hr multivitamin 1 tab PO DAILY 10/08/20 03/24/24 03/25/24 History omeprazole 40 mg capsule,delayed 40 mg PO DAILY 10/08/20 03/24/24 03/26/24 History release lisinopril 20 mg tablet 20 mg PO DAILY 08/17/23 03/24/24 03/25/24 History Exam Airway Mallampati Class: II TM Dist: >3cm Neck ROM: Full Heart: rrr Lungs: cta Assessment and Plan Assessment Anesthesia Assessment: Anesthesia Plan Discussed Final Anesthetic Review Family History of Problems with Anesthesia: No History of Problems with Anesthesia: No NPO: Yes ASA Class: III Final Preanesthetic Review: No Changes in Pt Med Stat, Meds/Allgs Chart Reviewed, Consent Obtained/Reviewed and Anes Risks/Benef Reviewed Patient Risk: Intermediate Procedure Risk: Intermediate Anesthetic Plan Anesthetic Plan: GA Disposition: Standard PACU
[2024-03-26 10:05] VITALS: BP 128/78; PULSE 87; RESP 20; TEMP 37; O2SAT 96; BMI 28.2
[2024-03-26] MEDS: Lactated Ringers 1,000 ML 100 ML IVCONT (10:37)
--- NOTE | 2024-03-26 11:39 | MHC.SHP ---
Pre-Procedural Eval Section A - 24 Hr Update-Section A only Date of Service: 03/26/24 The patient is an INPATIENT: No Changes since office visit: Yes Cold of Flu in the past 2 weeks The patient has been examined within 24 hours of the surgical procedure. The History & Physical has been completed within 30 days and I have reviewed it.: No Section B - Complete if H&P > 30 days Chief Complaint: Radiculopathy, lumbar region,chronic pain Relevant Family History (Specify if Yes): Yes Relevant Social History: None Present Medications: see Short Stay Collaborative assessment Medical History: No relevant PMH History of Previous Operations: No relevant previous surgery Allergies: Allergies Allergy/AdvReac Type Severity Reaction Status Date / Time No Known Allergies Allergy Verified 02/27/24 10:16 Review of Systems Sugical H&P ROS: Negative: Constitution, Cardiovascular and Respiratory Exam Surgical H&P Exam: Normal: HEENT, Normal: Heart and Normal: Lungs Plan Diagnosis/Plan: Unchanged I have reviewed the history and physical and performed a pertinent physical examination on my patient. No changes have occurred unless specified. Time Spent With Patient Time: Total time managing care of this patient today ____ minutes.
--- NOTE | 2024-03-26 11:40 | W.PM.OPN ---
Operative Note Operative Note Date of Service: 03/26/24 Narrative: Preoperative diagnosis: Lumbar radiculopathy Postoperative diagnosis: Same Lumbar SCS Implant After proper identification, the patient was brought to the operating room. After prone positioning, patient was sedated under anesthesia. Care was taken during positioning to protect and pad all pressure points. Cefazolin 2gm was given as preoperative antibiotic prophylaxis. The back was prepped and draped in the usual sterile fashion using Chloroprep. The fluoroscope unit was sterilely draped and brought into field, the vertebral target and the T12/L1 interspace was localized with fluoroscopy after the skin was anesthetized with 0.25% bupivicaine with 1:200,000 epinephrine and 1% lidocaine using a 25-gauge needle. A 6 cm incision was then made slightly to the right of midline with a 15 blade between the L1 and L2 spinous processes. Electrocautery was used to dissect down to the prevertebral fascia. Two 14-gauge introducer Tuohy needles were advanced using AP and contralateral oblique fluoroscopy views to the target interspace the right side of the L1 spinous process. Upon loss of resistance, a flexible stylet was advanced and verified to be in the epidural space.?Both electrodes were advanced to the top of the T8 vertebral body. The patient was woken up and adequate coverage in the area of low back and legs was confirmed. The patient was then re-sedated. With the needles covering the leads, we placed 2 sets of Tycron sutures per electrode for the anchor stitches. We then backed out the needle under live fluoroscopy, verifying that the electrodes were in the correct position and we then used the locking anchors to secure the electrodes down to the prevertebral fascia, tying them down with the Tycron sutures. At this point, a pocket for the generator was made in the left iliac fossa. With the skin and subcutaneous tissues anesthetized with 0.25% bupivicaine with 1:200,000 epinephrine and 1% lidocaine, a horizontal 2-inch incision was made using a 15 blade and combination of sharp dissection, blunt dissection and electrocautery was used. A pocket was created about 1 cm below the skin. The pocket was then irrigated with normal saline containing vancomycin. Hemostasis was attained with electrocautery. We then tunneled the electrodes from the back into the pocket using the tunneling device. The electrodes were then connected to the generator. Two Tycron sutures were thrown across the floor of the pocket and through the medial and lateral anchor holds of the generator. After interrogation with impedance check the generator was placed into the subcutaneous pocket and the anchoring sutures tied. Care was taken not to get fluid in the generator connector block. The excess leads were closed beneath the generator creating a loop of strain relief as well. The neurostimulator generator was placed parallel to the skin at a depth of 1 cm for successful telemetry and impedence. The pocket was reirrigated and closed with the generator name facing out. Final electronic analysis was performed to ensure proper functioning. Positioning of the leads were rechecked and confirmed with fluoroscopy and images saved. Both incisions were closed with a deep layer of 2-0 Vicryl sutures, the deep dermal layer with 3-0 Vicryl sutures, simple interrupted. We then secured the incision with Dermabond, Mastisol, steristrips and op-site dressings over both incisions. The patient tolerated the procedure well. The patient was then flipped back into the supine position, woken up and brought to the PACU in stable condition. Complications: None EBL: 10 mL
--- NOTE | 2024-03-26 11:40 | PM.OP ---
Brief Operative Note Date of Service: 03/26/24 Pre-op diagnosis: Lumbar radiculopathy Post-op diagnosis: same Procedure: Lumbar spinal cord stimulation implant Implants: [employer] SCS Intellis IPG and leads Surgeon: Ta Giordano MD Anesthesia: MAC Was an [employer] used for this Procedure?: No Estimated blood loss (mL): 10 Pathology: none sent Condition: stable Disposition: PACU
[2024-03-26 11:50] LABS: MRSA Nasal PCR NEGATIVE (Negative); SA Nasal PCR NEGATIVE (Negative)
[2024-03-26 14:05] VITALS: BP 112/66; PULSE 91; RESP 16; TEMP 36.8; O2SAT 97
[2024-03-26 14:20] VITALS: BP 100/62; PULSE 91; RESP 16; O2SAT 97
[2024-03-26 14:35] VITALS: BP 122/71; PULSE 81; RESP 16; TEMP 36.6; O2SAT 97
[2024-03-26 14:56] VITALS: BP 129/81; PULSE 89; RESP 16; O2SAT 97
== END 2024-03-26 15:18 | disposition home or self-care (01) ==
PROVIDERS: Registered Nurse Emergency; PCP Internal Medicine; Visit Provider Internal Medicine
PROC: (CPT 63685; principal; 2024-03-26 11:30)
DX: M54.16 Radiculopathy, lumbar region (principal); G89.4 Chronic pain syndrome; M62.838 Other muscle spasm; M54.59 Other low back pain; M17.0 Bilateral primary osteoarthritis of knee; M10.9 Gout, unspecified; I10 Essential (primary) hypertension; E78.5 Hyperlipidemia, unspecified; Z79.899 Other long term (current) drug therapy
CPT/HCPCS: 63685; 63650 ×2; 87640; 87641; C1778; C1820; J0690; J2003; J2371; J2704; J2795; J3010; J3370

== ENCOUNTER → 2024-03-26 09:56 | Outpatient (BNV) | payer MEDICARE, MEDICAID, SELFPAY | PROVIDERS: PCP Internal Medicine; Visit Provider Internal Medicine | DX: M54.16 Radiculopathy, lumbar region (principal) | CPT/HCPCS: 63650; 63685 ==

== ENCOUNTER 2024-04-04 10:04 | Outpatient (AMB) | payer MEDICARE, MEDICAID, SELFPAY ==
--- NOTE | 2024-04-04 10:08 | A.OFFVIS_ITS ---
Vital Signs 04/04/24 10:11 Height 6 ft Weight 203 lb BMI 27.5 BP 117/78 Blood Pressure Location Lt brachial Position Sitting Pulse 91 Pulse Source Pulse Oximeter Pulse Oximetry (%) 97 Oxygen Delivery Method Room Air Intake Visit Reasons: S/p [employer] SCS Implant 03/26/24 Bakery Manager Required: No Accompanied by: Spouse Allergies No Known Allergies Allergy (Verified 04/04/24 10:13) HPI Comments Details: Patient presents today 1 week status post [employer] lumbar SCS implant on 03/26/[address] Giordano. Patient reports ongoing 50-60% pain relief in the back and 100% ongoing leg and hip pain relief. He has been taking one Percocet a day as needed for post-op pain with good relief. Patient reports improvement in his daily activities and functioning, mobility and sleep. [employer] human resources hr representative is present during today's visit and adjusting SCS device program. Denies any recent cough, cold, infection, fever, any significant changes in her medical history, medications or recent hospitalizations. The dressings were changed today in the office. Dressings were removed. The two incisional wounds were examined today. They are healing without complications. All incisions are secured with intact Dermabond and Steri-strips. The wounds are clean, no pathological discharge, no redness, no swelling, no local temperature, no tenderness on palpation.?The wounds were washed with ChloraPrep and bacitracin ointment with dry sterile dressings were applied. Past Procedures: 03/26/24: Percutaneous Spinal Cord Stimulator Implant, lumbar: >50-60% relief 02/20/24: Percutaneous Spinal Cord Stimulator Trial, lumbar: >80% relief. 07/05/23: Transforaminal epidural steroid injection, Bilateral L4-5 11/25/21: Transforaminal epidural steroid injection, Right L5/S1: % relief. 10/12/21: Sacroiliac Joint Injection, Left: % relief. 08/03/21: Transforaminal epidural steroid injection, Bilateral L4: % relief. 03/23/21: Radiofrequency lesioning medial branch nerves, Left L3, L4 medial branches and L5 dorsal ramus (L4/5 and L5/S1) (2 levels, 3 nerves): % relief. 01/26/21: Right Parasagittal L4-L5 Interlaminar JAMEEL ? 60% relief on the right side. 12/08/20: Bilateral L4,L5 joint aspiration and Intra-articular facet steroid injection ? More than 60% relief on the left side, and about 40% relief on the right side which is lasted approximately 4 weeks. 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 Alert and oriented. Mood and affect appropriate. Follows and participates in conversation appropriately. Respiratory effort is unlabored. Able to transition from sit to stand unassisted. Ambulates with bilaterally normal heel strike and toe off. The dressings were changed today in the office. Results Reviewed Results Reviewed: Date: 08/21/23 XR LUMBOSACRAL SPINE WITH OBLIQUES FINDINGS: Slight leftward curvature of the lumbar spine with straightening of the normal lumbar lordosis. Five (5) lumbar type vertebral bodies identified. Lumbar vertebral body heights are preserved. Lumbar spondylosis with mild loss of disc space height at L4-L5 and L5-S1 redemonstrated. Facet arthritis in the lower lumbar spine. Bilateral sacroiliac joints are symmetric. Alignment preserved on flexion and extension views. IMPRESSION: Lumbar spondylosis with mild loss of disc space height at L4-L5 and L5-S1 redemonstrated. Assessment & Plan Assessment & Plan (1) Intractable low back pain: Code(s): M54.59 - Other low back pain Category: Medical (2) Lumbar radiculopathy: Code(s): M54.16 - Radiculopathy, lumbar region Category: Medical (3) Muscle spasm: Code(s): M62.838 - Other muscle spasm Category: Medical (4) Lumbar and sacral spondyloarthritis: Code(s): M47.817 - Spondylosis without myelopathy or radiculopathy, lumbosacral region Category: Medical Plan Patient is one week status post SCS lumbar implant with good results. He has been taking Percocet once daily prn for post-op pain. The dressings were changed today in the office. Patient may remove dressings in 2-3 days and start showering. Continue wearing abdominal binder. The patient was also educated about SCS implant device current program and potential program adjustment next week. [employer] rep was present today. Patient will follow up next week for a wound check. Activity restrictions and precautions reviewed with patient and family. All questions and concerns have been answered and the patient agreed with the plan. Follow up in 1 week and sooner as needed Coding Level of Care Code Est Pt Level 3 (53387) Complex EM visit Add On G2211 Diagnoses Intractable low back pain M54.59 Lumbar radiculopathy M54.16 Muscle spasm M62.838 Lumbar and sacral spondyloarthritis M47.817
[2024-04-04 10:11] VITALS: BP 117/78; PULSE 91; O2SAT 97; BMI 27.5
== END 2024-04-04 11:07 | disposition home or self-care (01) ==
PROVIDERS: PCP Internal Medicine; Visit Provider Nurse Practitioner Family
DX: M54.59 Other low back pain (principal); M54.16 Radiculopathy, lumbar region; M62.838 Other muscle spasm; M47.817 Spondylosis without myelopathy or radiculopathy, lumbosacral region
CPT/HCPCS: 99024

== ENCOUNTER → 2024-04-04 10:04 | Outpatient (BNVA) | payer MEDICARE, MEDICAID, SELFPAY | PROVIDERS: PCP Internal Medicine; Visit Provider Nurse Practitioner Family | DX: M54.59 Other low back pain (principal); M54.16 Radiculopathy, lumbar region; M62.838 Other muscle spasm; M47.817 Spondylosis without myelopathy or radiculopathy, lumbosacral region; Z96.82 Presence of neurostimulator | CPT/HCPCS: 99212 ==

== ENCOUNTER 2024-04-07 13:12 | Outpatient (AMB) | payer MEDICARE, MEDICAID, SELFPAY ==
--- NOTE | 2024-04-07 13:21 | A.OFFVIS_ITS ---
Intake Visit Reasons: 6m/PVR Intake Note: Patient is present for 6M/ PVR Urology Medication:TAMSULOSIN Antibiotic Allergy:NONE Blood Thinner:NONE Last PVR:16ML'S Todays PVR:0ML'S Urgent Care Nurse Practitioner Required: No Allergies No Known Allergies Allergy (Verified 04/07/24 13:53) Medication List - Last Reconciled 04/07/24 by LISA Hairston atorvastatin 40 mg PO DAILY cane As directed celecoxib 100 mg PO BID enalapril maleate 20 mg PO DAILY gabapentin 300 mg PO BID hydrochlorothiazide 25 mg PO DAILY lisinopril 20 mg PO DAILY metoprolol succinate ER 100 mg PO DAILY multivitamin 1 tab PO DAILY omeprazole 40 mg PO DAILY oxycodone-acetaminophen 5-325 mg 1 tab PO Q8H PRN tamsulosin 0.4 mg PO BEDTIME 90 days HPI Comments Details: Maximo is a very pleasant 73-year-old male patient of Dr. Maxi Harvey who was accompanied by his and grandson at today's office visit. He has a past medical history of hypertension, lumbar radiculitis, psoriasis, GERD, hyperlipidemia, osteoarthritis, gout, and chronic headaches. He presents to the office today for follow-up of his bladder wall thickening and nocturia. In discussion with the patient today he discusses continuing to follow-up with pain management for his ongoing chronic back pain and has recently underwent surgical procedure for SCS implant. When asked he denies any bothersome urinary issues. He reports compliance with Flomax and feels this has been helpful in episodes of nocturia he had been experiencing. In office urinalysis results reviewed with the patient today. PVR 0 mL. He denies incontinence, hematuria, dysuria, foul smelling urine, changes to urinary stream, flank pain, fever, and or chills. He otherwise offers no other issues or concerns at this time. 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 Review of Systems Const Reports no additional complaints Eyes Reports no additional complaints ENT Reports no additional complaints Card Reports no additional complaints Resp Reports no additional complaints GI Reports as per HPI Reports as per HPI Musc Reports as per HPI Neuro Reports no additional complaints Psych Reports no additional complaints Endo Reports no additional complaints Guillaume/Lymph Reports no additional complaints Aller/Immun Reports no additional complaints Physical Exam Const General: cooperative, healthy appearing, comfortable, no acute distress, well developed, alert and awake Orientation/consciousness: patient oriented x3 Limitations: no limitations HEENT Head: Yes normal to inspection, Yes normocephalic and Yes atraumatic Ears: hearing grossly normal bilaterally Eyes General: appearance normal, both eyes and all related structures Neck Neck: Yes normal visual inspection and Yes trachea midline Chest Chest palpation & inspection: normal inspection of the chest Resp Effort & Inspection: normal respiratory effort and able to speak in complete sentences Cardio Rate: regular rate GI Inspection: Yes normal to inspection General: Yes no CVA tenderness Back/Spine/Pelvis Back: no CVA tenderness Skin General skin exam: no rashes or lesions noted Neuro General: patient oriented x3 Extrem General: Yes normal to inspection Psych Appearance: grossly normal and well kempt Mental Status: mental status grossly normal Speech and movement: Normal speech and movement present and Clear speech present Affect: normal affect Attitude: cooperative Thought process: Normal thought process present Thought content: Normal thought content present Insight: Fair insight present (Psych) Judgement: Fair judgement present (Psych) Office Procedures Post Void Residual Post Residual Void Post Void Residual (PVR): 0 [id number] Void Residual by ultrasound Results AMB Urinalysis, Automated UA Leukoctes 0 Ottoniel/uL Last Edit by BABAR Shea on 04/07/24 13:38 UA Nitrite Negative Last Edit by BABAR Shea on 04/07/24 13:38 UA Urobilinogen 0.2 mg/dL Last Edit by BABAR Shea on 04/07/24 13:3 8 UA Protein 0 mg/dL Last Edit by BABAR Shea on 04/07/24 13:38 UA pH 6.0 Last Edit by BABAR Shea on 04/07/24 13:38 UA Blood 0 Jonny/uL Last Edit by BABAR Shea on 04/07/24 13:38 UA Specific [place] 1.020 Last Edit by BABAR Shea on 04/07/24 13: 38 UA Ketone Negative Last Edit by BABAR Shea on 04/07/24 13:38 UA Bilirubin 0 mg/dL Last Edit by BABAR Shea on 04/07/24 13:38 UA Glucose 0 mg/dL Last Edit by BABAR Shea on 04/07/24 13:38 Results Reviewed Results Reviewed: Laboratory Last Values Urine pH (Auto) 6.0 04/07/24 13:37 Specific [place] (Auto) 1.020 04/07/24 13:37 Urine Protein (Auto) 0 mg/dL 04/07/24 13:37 Glucose (UA)(Auto) 0 mg/dL 04/07/24 13:37 Urine Ketones (Auto) Negative 04/07/24 13:37 Urine Blood (Auto) 0 Jonny/uL 04/07/24 13:37 Urine Nitrite (Auto) Negative 04/07/24 13:37 Urine Bilirubin (Auto) 0 mg/dL 04/07/24 13:37 Urine Urobilinogen (Auto) 0.2 mg/dL 04/07/24 13:37 Leukocyte Esterase (Auto) 0 Ottoniel/uL 04/07/24 13:37 Assessment & Plan Assessment & Plan (1) Bladder wall thickening: Code(s): N32.89 - Other specified disorders of bladder Category: Medical Plan In office urinalysis results reviewed with the patient today; as noted above. PVR 0 mL. Patient currently denies any bothersome urinary issues or concerns. He reports be happy with current voiding parameters. Continue Flomax; refill provided. Will obtain PSA in 6 months. Follow-up in 6 months with PSA and PVR; or sooner with any issues, concerns, and or questions. Orders: Orders AMB Urinalysis Automated Today Z13.9 - Encounter for screening, unspecified Prostate Specific Antigen 6 Months N32.89 - Other specified disorders of bladder Medications: Refilled 2 tamsulosin 0.4 mg PO BEDTIME 90 days 90 caps 3RF N40.1 - Benign prostatic hyperplasia with lower urinary tract symptoms, R35.1 - Nocturia Patient Instructions: The patient had an opportunity to ask questions regarding the treatment plan. All questions were answered. Physical exam, labs, and imaging were discussed and reviewed in detail. As well as risks, benefits, and discussion of treatment choices. No major barriers to understanding were identified. The patient expressed understanding and agreement with the above treatment plan. The patient was made aware they should contact our office by phone for worsening of their current condition, the appearance of new symptoms, or with any questions or concerns. Compliance is encouraged with any medications and follow up testing that is ordered. It is a privilege to be allowed the opportunity to participate in? your urological care.? Again, if you have any questions or concerns If you have any questions or concerns please do not hesitate to contact me. The office is [phone]. This note is constructed using voice recognition software. While every effort has been made to ensure accuracy head packager errors may have been included. Yours sincerely, LISA Hairston Coding Level of Care Code Est Pt Level 3 (02153) Complex EM visit Add On G2211 Diagnoses Bladder wall thickening N32.89 CPT Codes Post Residual Void - PVR CPT Code: 69609-Hkre Void Residual by ultrasound ([id number])
== END 2024-04-07 14:08 | disposition home or self-care (01) ==
PROVIDERS: PCP Internal Medicine; Visit Provider Nurse Practitioner Family
DX: N32.89 Other specified disorders of bladder (principal); Z13.9 Encounter for screening, unspecified
CPT/HCPCS: 99213; G2211

== ENCOUNTER → 2024-04-07 13:12 | Outpatient (BNVA) | payer MEDICARE, MEDICAID, SELFPAY | PROVIDERS: PCP Internal Medicine; Visit Provider Nurse Practitioner Family | DX: N32.89 Other specified disorders of bladder (principal); R35.1 Nocturia | CPT/HCPCS: 51798; 81003; 99212 ==

== ENCOUNTER 2024-04-11 09:59 | Outpatient (AMB) | payer MEDICARE, MEDICAID, SELFPAY ==
--- NOTE | 2024-04-11 10:01 | A.OFFVIS_ITS ---
Vital Signs 04/11/24 10:05 Height 6 ft Weight 203 lb BMI 27.5 BP 128/75 Blood Pressure Location Lt brachial Position Sitting Pulse 89 Pulse Source Pulse Oximeter Pulse Oximetry (%) 97 Oxygen Delivery Method Room Air Intake Visit Reasons: S/p [employer] SCS Implant 03/26/24 (2nd Visit) Intake Note: Pain today 09/06 Clinical Systems Analyst Required: No Accompanied by: Spouse Allergies No Known Allergies Allergy (Verified 04/11/24 10:06) HPI Comments Details: Patient presents today 2 weeks status post [employer] lumbar SCS implant on 03/26/[address] Giordano. Patient reports ongoing 50% pain relief in the back and 100% ongoing leg and hip pain relief. He reports mild to moderate tenderness in the projection of battery place without swelling, redness or warmth. Patient reports he has been taking one Percocet with partial relief but has run out of mediation. Patient reports improvement in his daily activities and functioning, mobility and sleep. Family reports patient is walking better since SCS placement. [employer] rep has reached out to patient via phone for update and no recent adjustments were needed per patient. Denies any recent cough, cold, infection, fever, any significant changes in her medical history, medications or recent hospitalizations. The two incisional wounds were examined today in the office. They are healing without complications. All incisions are secured with intact Dermabond and Steri-strips. The wounds are clean, no pathological discharge, no redness, no swelling, no local temperature, no tenderness on palpation in the midline incision, and mild tenderness with palpation in the projection of batter pack. Past Procedures: 03/26/24: Percutaneous Spinal Cord Stimulator Implant, lumbar: >50-60% relief 02/20/24: Percutaneous Spinal Cord Stimulator Trial, lumbar: >80% relief. 07/05/23: Transforaminal epidural steroid injection, Bilateral L4-5 11/25/21: Transforaminal epidural steroid injection, Right L5/S1: % relief. 10/12/21: Sacroiliac Joint Injection, Left: % relief. 08/03/21: Transforaminal epidural steroid injection, Bilateral L4: % relief. 03/23/21: Radiofrequency lesioning medial branch nerves, Left L3, L4 medial branches and L5 dorsal ramus (L4/5 and L5/S1) (2 levels, 3 nerves): % relief. 01/26/21: Right Parasagittal L4-L5 Interlaminar JAMEEL ? 60% relief on the right side. 12/08/20: Bilateral L4,L5 joint aspiration and Intra-articular facet steroid injection ? More than 60% relief on the left side, and about 40% relief on the right side which is lasted approximately 4 weeks. 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 Alert and oriented. Mood and affect appropriate. Follows and participates in conversation appropriately. Respiratory effort is unlabored. Able to transition from sit to stand unassisted. Ambulates with bilaterally normal heel strike and toe off. General: Yes no CVA tenderness Back/Spine/Pelvis Back: no CVA tenderness Cervical Spine: cervical ROM normal and No Cervical spine tenderness Thoracic/Lumbar Spine: thoracic and lumbar spine normal to inspection, Thoracic/lumbar spine scar(s), Lasegue's sign negative, straight leg raise negative bilaterally, pain with thoraco-lumbar ROM, paraspinal muscle tenderness on the right in the lower lumbar, No thoracic spinal tenderness and No lumbar spinal tenderness Pelvis: no buttock tenderness Extrem General: Yes capillary refill normal, Yes no clubbing, cyanosis or edema and Yes no calf tenderness Results Reviewed Results Reviewed: Date: 08/21/23 XR LUMBOSACRAL SPINE WITH OBLIQUES FINDINGS: Slight leftward curvature of the lumbar spine with straightening of the normal lumbar lordosis. Five (5) lumbar type vertebral bodies identified. Lumbar vertebral body heights are preserved. Lumbar spondylosis with mild loss of disc space height at L4-L5 and L5-S1 redemonstrated. Facet arthritis in the lower lumbar spine. Bilateral sacroiliac joints are symmetric. Alignment preserved on flexion and extension views. IMPRESSION: Lumbar spondylosis with mild loss of disc space height at L4-L5 and L5-S1 redemonstrated. Assessment & Plan Assessment & Plan (1) Lumbar and sacral spondyloarthritis: Code(s): M47.817 - Spondylosis without myelopathy or radiculopathy, lumbosacral region Category: Medical (2) Intractable low back pain: Code(s): M54.59 - Other low back pain Category: Medical (3) Status post insertion of spinal cord stimulator: Code(s): Z96.89 - Presence of other specified functional implants Category: Surgical (4) Lumbar radiculopathy: Code(s): M54.16 - Radiculopathy, lumbar region Category: Medical (5) Muscle spasm: Code(s): M62.838 - Other muscle spasm Category: Medical Plan Patient is 2 weeks status post SCS lumbar implant with good results. He has been taking Percocet once daily prn for post-op pain, will refill x1 and sent script for naproxen for left sided battery site pain. Two incisional wound sites were examined today in the office. Incisions with intact skin glue and Steri-strips are open to air with no redness, no swelling and no pathological discharge. Patient will continue to monitor his symptoms and notify our office on as needed basis. Per [employer] rep, patient does need program adjustments at this time. All questions and concerns have been answered and the patient agreed with the plan. Follow up as needed Medications: New naproxen Take it with food and full glass of water. 500 mg PO BID PRN 60 tabs 0RF pain M47.817 - Spondylosis without myelopathy or radiculopathy, lumbosacral region, M54.59 - Other low back pain, Z96.89 - Presence of other specified functional implants Refilled oxycodone-acetaminophen 5-325 mg Partial Fill upon patient request. 1 tab PO Q8H PRN 20 tabs 0RF pain oxycodone-acetaminophen 5-325 mg Partial Fill upon patient request. 1 tab PO Q8H PRN 20 tabs 0RF pain Coding Level of Care Code Est Pt Level 3 (64691) Complex EM visit Add On G2211 Diagnoses Lumbar and sacral spondyloarthritis M47.817 Intractable low back pain M54.59 Status post insertion of spinal cord stimulator Z96.89 Lumbar radiculopathy M54.16 Muscle spasm M62.838
[2024-04-11 10:05] VITALS: BP 128/75; PULSE 89; O2SAT 97; BMI 27.5
== END 2024-04-11 10:27 | disposition home or self-care (01) ==
PROVIDERS: PCP Internal Medicine; Visit Provider Nurse Practitioner Family
DX: M47.817 Spondylosis without myelopathy or radiculopathy, lumbosacral region (principal); M54.59 Other low back pain; Z96.89 Presence of other specified functional implants; M54.16 Radiculopathy, lumbar region; M62.838 Other muscle spasm
CPT/HCPCS: 99213; G2211

== ENCOUNTER → 2024-04-11 09:59 | Outpatient (BNVA) | payer MEDICARE, MEDICAID, SELFPAY | PROVIDERS: PCP Internal Medicine; Visit Provider Nurse Practitioner Family | DX: M47.817 Spondylosis without myelopathy or radiculopathy, lumbosacral region (principal); M54.16 Radiculopathy, lumbar region; M54.59 Other low back pain; M62.838 Other muscle spasm; Z96.89 Presence of other specified functional implants | CPT/HCPCS: 99212 ==

== ENCOUNTER 2024-07-04 09:17 | Outpatient (REF) | payer MEDICARE, MEDICAID, SELFPAY ==
[2024-07-04 14:19] LABS: MANUAL DIFF FLAG NO
[2024-07-04 14:23] LABS: Basophils Absolute Auto 0.1 X10*3/uL (0.0-0.2); Basophils Percent Auto 0.7 % (0-2); Eosinophils Absolute Auto 0.2 X10*3/uL (0.0-0.4); Eosinophils Percent Auto 2.1 % (0-4); Hemoglobin 16.5 g/dl (14.0-18.0); Imm Gran Abs Auto 0.02 X10*3/uL (0.00-0.03); Imm Gran Pct Auto 0.2 % (0.0-0.4); Lymphocytes Absolute Auto 3.2 X10*3/uL (1.2-4.9); Lymphocytes Percent Auto 38.3 % (20-40); Mean Platelet Volume 9.8 fL (9.4-12.4); Monocytes Absolute Auto 0.7 X10*3/uL (0.1-1.2); Monocytes Percent Auto 7.9 % (2-11); Neutrophils Absolute Auto 4.3 x10*3/uL (2.0-8.3); Neutrophils Percent Auto 50.8 % (45-73); Platelet Count 281 X10*3/uL (160-400); Red Cell Distribution Width 13.2 % (11.0-16.0); White Blood Count 8.4 X10*3/uL (4.8-10.8)
[2024-07-04 15:01] LABS: Alanine Aminotransferase 27 U/L (0-40); Albumin Level 4.2 g/dL (3.5-5.0); Anion Gap 15 (12-20); Aspartate Amino Transferase 30 U/L (5-37); Blood Urea Nitrogen 19 mg/dL (9-16); Calcium 10.4 mg/dL (8.4-10.2); Carbon Dioxide 25 mmol/L (22-29); Chloride 106 mmol/L (96-108); Cholesterol 144 mg/dL (<200); Estimated Glomerular Filt Rate 55; Glucose Random 110 mg/dL (60-115); HDL Cholesterol 39 mg/dL (>40); LDL Cholesterol Calculated 84 mg/dL (<100); Potassium 4.3 mmol/L (3.3-5.1); Sodium 142 mmol/L (135-145); Total Protein 7.5 g/dL (6.5-8.0); Triglycerides 108 mg/dL (<150); Uric Acid 7.5 mg/dL (3.4-7.0)
[2024-07-04 15:09] LABS: TSH reflex Free T4 1.89 uIU/mL (0.32-4.0)
[2024-07-04 15:50] LABS: Alkaline Phosphatase 89 U/L (39-117)
== END 2024-07-04 09:18 | disposition home or self-care (01) ==
LOC: HO.CHCLDS 09:17
PROVIDERS: Visit Provider Internal Medicine
DX: I10 Essential (primary) hypertension (principal)
CPT/HCPCS: 36415; 80053; 80061; 84443; 84550; 85025

== ENCOUNTER 2024-09-30 10:28 | Outpatient (REF) | payer MEDICARE, MEDICAID, SELFPAY ==
[2024-09-30 12:31] LABS: Prostate Specific Antigen 1.65 ng/mL (<0.05-4.0)
== END 2024-09-30 10:29 | disposition home or self-care (01) ==
LOC: HO.10HDL 10:28
PROVIDERS: Visit Provider Nurse Practitioner Family
DX: N32.89 Other specified disorders of bladder (principal); Z12.5 Encounter for screening for malignant neoplasm of prostate
CPT/HCPCS: 36415; 84153

== ENCOUNTER 2024-10-06 13:34 | Outpatient (AMB) | payer MEDICARE, MEDICAID, SELFPAY ==
--- NOTE | 2024-10-06 13:41 | A.OFFVIS_ITS ---
Intake Visit Reasons: 6M PSA PVR Intake Note: Patient presents today for follow up on: Bladder wall thickening, PVR, and PSA lab results Urology Medication:Tamsulosin Antibiotic Allergy:NONE Blood Thinner:NONE PVR: 82ml's Racket Stringer Required: No Accompanied by: Self / Same As Patient Allergies No Known Allergies Allergy (Verified 10/06/24 14:39) Medication List - Last Reconciled 10/06/24 by LISA Hairston atorvastatin 40 mg PO DAILY cane As directed celecoxib 100 mg PO BID enalapril maleate 20 mg PO DAILY gabapentin 300 mg PO BID hydrochlorothiazide 25 mg PO DAILY lisinopril 20 mg PO DAILY metoprolol succinate ER 100 mg PO DAILY multivitamin 1 tab PO DAILY omeprazole 40 mg PO DAILY tamsulosin 0.4 mg PO BEDTIME 90 days HPI Comments Details: Maximo is a very pleasant 74 year-old male patient of Dr. Maxi Harvey. He has a past medical history of hypertension, lumbar radiculitis, psoriasis, GERD, hyperlipidemia, osteoarthritis, gout, and chronic headaches. He presents to the office today for follow-up of his bladder wall thickening and nocturia. In discussion with the patient today he reports to be doing and feeling well. He denies having had any bothersome urinary issues or concerns since his last office visit here. He discusses continuing to follow up with pain management for his ongoing/chronic back pain. When asked he reports compliance with Flomax as prescribed in discusses how helpful this is been with episodes of nocturia he had been previously experiencing. In office urinalysis results reviewed with the patient today. PVR He reports compliance with Flomax and feels this has been helpful in episodes of nocturia he had been experiencing. In office urinalysis results reviewed with the patient today. PVR 82 mL. He denies incontinence, hematuria, dysuria, foul smelling urine, flank pain, fever, and or chills. He otherwise offers no other issues or concerns at this time. PSAs are as follows: PSA 424 2.3, 10/22 1.7 PFSH Medical History Hypertension Lumbar radiculitis Low back pain Psoriasis Gastroesophageal reflux Hyperlipidemia Localized osteoarthritis of both knees Arthritis Gout Chronic headaches Surgical History S/P placement of nerve stimulator History of open reduction and internal fixation (ORIF) procedure Social History Are you a primary certified social workers in health care to a significant other at home: No Do you presently have visiting nurse or other home services: No Patient Tobacco Use Status: Never used Tobacco Current occupational status: disabled 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 Review of Systems Const Reports no additional complaints Eyes Reports no additional complaints ENT Reports no additional complaints Card Reports no additional complaints Resp Reports no additional complaints GI Reports as per HPI Reports as per HPI Musc Reports as per HPI Neuro Reports no additional complaints Psych Reports no additional complaints Endo Reports no additional complaints Guillaume/Lymph Reports no additional complaints Aller/Immun Reports no additional complaints Physical Exam Const General: cooperative, healthy appearing, comfortable, no acute distress, well developed, alert and awake Orientation/consciousness: patient oriented x3 Limitations: no limitations HEENT Head: Yes normal to inspection, Yes normocephalic and Yes atraumatic Ears: hearing grossly normal bilaterally Eyes General: appearance normal, both eyes and all related structures Neck Neck: Yes normal visual inspection and Yes trachea midline Chest Chest palpation & inspection: normal inspection of the chest Resp Effort & Inspection: normal respiratory effort and able to speak in complete sentences Cardio Rate: regular rate GI Inspection: Yes normal to inspection General: Yes no CVA tenderness Back/Spine/Pelvis Back: no CVA tenderness Skin General skin exam: no rashes or lesions noted Neuro General: patient oriented x3 Extrem General: Yes normal to inspection Psych Appearance: grossly normal and well kempt Mental Status: mental status grossly normal Speech and movement: Normal speech and movement present and Clear speech present Affect: normal affect Attitude: cooperative Thought process: Normal thought process present Thought content: Normal thought content present Insight: Fair insight present (Psych) Judgement: Fair judgement present (Psych) Office Procedures Post Void Residual Post Residual Void Post Void Residual (PVR): 82 [id number] Void Residual by ultrasound Results AMB Urinalysis, Automated UA Leukoctes 0 Ottoniel/uL Last Edit by Meetpalmer Norris[facility] on 10/06/24 14:19 UA Nitrite Last [facility] on 10/06/24 14:19 UA Urobilinogen 0.2 mg/dL Last Edit by [facility], [facility] on 10/06/24 14:1 9 UA Protein 0 mg/dL Last Edit by [facility], [facility] on 10/06/24 14:19 UA pH 6.0 Last Edit by [facility] on 10/06/24 14:19 UA Blood 0 Jonny/uL Last Edit by [facility], [facility] on 10/06/24 14:19 UA Specific [place] 1.020 Last Edit by [facility] on 10/06/24 14: 19 UA Ketone Last Edit by [facility] on 10/06/24 14:19 UA Bilirubin 2 mg/dL Last Edit by [facility] on 10/06/24 14:19 UA Glucose 0 mg/dL Last Edit by [facility] on 10/06/24 14:19 Results Reviewed Results Reviewed: Laboratory Last Values Urine pH (Auto) 6.0 10/06/24 14:18 Specific [place] (Auto) 1.020 10/06/24 14:18 Urine Protein (Auto) 0 mg/dL 10/06/24 14:18 Glucose (UA)(Auto) 0 mg/dL 10/06/24 14:18 Urine Blood (Auto) 0 Jonny/uL 10/06/24 14:18 Urine Bilirubin (Auto) 2 mg/dL 10/06/24 14:18 Urine Urobilinogen (Auto) 0.2 mg/dL 10/06/24 14:18 Leukocyte Esterase (Auto) 0 Ottoniel/uL 10/06/24 14:18 Assessment & Plan Assessment & Plan (1) Bladder wall thickening: Code(s): N32.89 - Other specified disorders of bladder Category: Medical (2) Incomplete bladder emptying: Code(s): R33.9 - Retention of urine, unspecified Category: Medical Plan In office urinalysis results reviewed with the patient today; as noted above; will send for urine cytology. PVR 82 mL He reports be happy with current voiding parameters. Continue Flomax; refill provided. Recent PSA results reviewed with the patient today; as noted above. Will obtain PSA in 1 year. Will continue with surveillance monitoring. Follow-up in 1 year with PSA and PVR; or sooner with any issues, concerns, and or questions. Orders: Orders AMB Post Void Residual by ultrasound Today R33.9 - Retention of urine, unspecified AMB Urinalysis Automated Today Z13.9 - Encounter for screening, unspecified Prostate Specific Antigen 1 Year R33.9 - Retention of urine, unspecified, R35.1 - Nocturia Medications: Refilled tamsulosin 0.4 mg PO BEDTIME 90 caps 3RF 90 days N40.1 - Benign prostatic hyperplasia with lower urinary tract symptoms, R35.1 - Nocturia Patient Instructions: The patient had an opportunity to ask questions regarding the treatment plan. All questions were answered. Physical exam, labs, and imaging were discussed and reviewed in detail. As well as risks, benefits, and discussion of treatment choices. No major barriers to understanding were identified. The patient expressed understanding and agreement with the above treatment plan. The patient was made aware they should contact our office by phone for worsening of their current condition, the appearance of new symptoms, or with any questions or concerns. Compliance is encouraged with any medications and follow up testing that is ordered. It is a privilege to be allowed the opportunity to participate in? your urological care.? Again, if you have any questions or concerns If you have any questions or concerns please do not hesitate to contact me. The office is [phone]. This note is constructed using voice recognition software. While every effort has been made to ensure accuracy incident response manager errors may have been included. Yours sincerely, LISA Hairston Coding Level of Care Code Est Pt Level 3 (22190) Complex EM visit Add On G2211 Diagnoses Bladder wall thickening N32.89 Incomplete bladder emptying R33.9 CPT Codes Post Residual Void - PVR CPT Code: 62982-Rtbp Void Residual by ultrasound ([id number])
--- OUTSIDE RECORDS SUMMARY | 2024-10-06 15:20 | XMS_ITS | Encounter Summary ---
Author Organization [employer] Address [address] [facility] [address] [place] [address] Care Team Providers Care Medical Social Worker Name Role Phone Preston Anderson MD Primary Care Prov ider Encounter Details Date Type Department Care Team ([facility] st Contact Info) Description 06/11/2023 Telephone [facility] MED & PEDS [address] [place], [place] [phone] Preston Anderson MD [address] [place] [address] Social History Tobacco Use Types Packs/Day Years Used Date Smoking Tobacco: Never Alcohol Use Standard Drinks/Week Comments Defer 0 (1 standard drink = 0.6 oz pur e alcohol) Depression Answer Date Recorded Patient Health Questionnaire-9 Score 0 09/29/2022 Housing Stability Answer Date Recorded What is your housing situation today? I have glenntony lomeli 02/22/[address] you li ve. Do you have problems with any of the following? None of the above 02/22/2023 Food Insecurity Answer Date Recorded Within the past 12 months, y ou worried that your food would run out before you got money to buy more: Never True 02/22/2023 Within the past 12 months,th e food you bought just didn't last and you didn't have enough money to get more: Never True Transportation Answer Date Recorded In the past 12 months, has l ack of transportation kept you from medical appts, meetings, work or from getting things needed for daily living? No 02/22/2023 Utilities Answer Date Recorded In the past 12 months, has t he electric, gas, oil or water company threatened to shut off services in your home? No 02/22/2023 Depression Answer Date Recorded Patient Health Questionnaire-2 Score 0 09/29/2022 Sex and Gender Information Value Date Recorded Sex Assigned at Male 02/27/2022 10:35 AM EDT Legal Sex Male 10:35 AM EDT Gender Identity Male 02/27/2022 10:35 AM EDT Sexual Orientation Choose not to disclose 2021 10:35 AM EDT documented as of this encounter Plan of Treatment Not on file documented as of this encounter Visit Diagnoses Not on filedocumented in this encounter Additional Health Concerns Assessment Noted Time PHQ-9 Depression Total Score: 0 09/30/19 23 10:43 AM EDT documented as of this encounter Care Teams Medical Social Worker Relationship Specialty Start Date End Date Preston Anderson MD [address] [place] [id number] PCP - General Internal Medicine 09/28/19 documented as of this encounter
== END 2024-10-06 14:41 | disposition home or self-care (01) ==
LOC: HO.HUSH 13:35
PROVIDERS: PCP Internal Medicine; Visit Provider Nurse Practitioner Family
DX: N32.89 Other specified disorders of bladder (principal); R33.9 Retention of urine, unspecified; Z13.9 Encounter for screening, unspecified
CPT/HCPCS: 99213; G2211

== ENCOUNTER → 2024-10-06 13:34 | Outpatient (BNVA) | payer MEDICARE, MEDICAID, SELFPAY | PROVIDERS: PCP Internal Medicine; Visit Provider Nurse Practitioner Family | DX: N32.89 Other specified disorders of bladder (principal); R33.9 Retention of urine, unspecified | CPT/HCPCS: 51798; 81003; 99212 ==

== ENCOUNTER 2024-10-28 14:18 | Outpatient (REF) | payer MEDICARE, MEDICAID, SELFPAY ==
--- NOTE | ~2024-10-28 | XR_ITS ---
EXAMINATION: XR FOOT 3 OR MORE VIEWS RIGHT HISTORY: right foot pain. Chronic gouty arthritis. COMPARISON: There are no prior studies available for comparison. FINDINGS: Three views of the right foot are submitted. Osseous mineralization is normal. There is no fracture or dislocation. There are multiple erosions involving the 1st MTP joint with mild joint space narrowing. There is overlying soft tissue swelling. Findings are consistent with the given history of gout. The remaining joint spaces are maintained. XR/XR foot RT min 3V IMPRESSION: Findings consistent with gout involving the 1st MTP joint. Electronically signed by: Gen Doran MD 10/28/2024 03:11 PM EDT
== END 2024-10-28 14:19 | disposition home or self-care (01) ==
LOC: HO.HHCX 14:18
PROVIDERS: Visit Provider Internal Medicine
DX: M1A.9XX0 Chronic gout, unspecified, without tophus (tophi) (principal)
CPT/HCPCS: 73630

== ENCOUNTER → 2024-10-28 14:19 | Outpatient (BNV) | payer MEDICARE, MEDICAID, SELFPAY | PROVIDERS: Visit Provider Radiology Diagnostic Radiology | DX: M10.071 Idiopathic gout, right ankle and foot (principal); M79.671 Pain in right foot | CPT/HCPCS: 73630 ==

== ENCOUNTER 2024-10-28 14:30 | Outpatient (REF) | payer MEDICARE, MEDICAID, SELFPAY ==
--- OUTSIDE RECORDS SUMMARY | 2024-10-28 15:38 | XMS_ITS | Encounter Summary ---
Author Organization [employer] Address [address] [facility] [address] [place] [address] Care Team Providers Care Natural Resources Manager Name Role Phone Preston Anderson MD Primary Care Prov ider Encounter Details Date Type Department Care Team ([facility] st Contact Info) Description 06/11/2023 Telephone [facility] CH[facility] MED & PEDS [address] [place], [place] [phone] Preston Anderson MD [address] [place] [address] Social History Tobacco Use Types Packs/Day Years [...] documented as of this encounter Care Teams Natural Resources Manager Relationship Specialty Start Date End Date Preston Anderson MD [address] [place] [id number] PCP - General Internal Medicine 09/28/19 documented as of this encounter
[2024-10-28 16:15] LABS: MANUAL DIFF FLAG NO
[2024-10-28 16:18] LABS: Hematocrit 49.2 % (42.0-52.0); Hemoglobin 16.1 g/dl (14.0-18.0); Imm Gran Abs Auto 0.03 X10*3/uL (0.00-0.03); Imm Gran Pct Auto 0.3 % (0.0-0.4); Lymphocytes Absolute Auto 2.3 X10*3/uL (1.2-4.9); Mean Corpuscular HGB Conc 32.7 g/dl (31.0-36.0); Mean Corpuscular Hemoglobin 26.3 pg (27.0-33.0); Mean Corpuscular Volume 80.3 fL (80.0-98.0); NRBC Abs Auto 0.000 X10*3/uL (0.0-0.012); NRBC Pct Auto 0.0 /100WBC (0.0-0.2); Platelet Count 317 X10*3/uL (160-400); Red Blood Count 6.13 X10*6/uL (4.60-5.80); White Blood Count 8.7 X10*3/uL (4.8-10.8)
[2024-10-28 16:33] LABS: Uric Acid 6.4 mg/dL (3.4-7.0)
[2024-10-28 16:55] LABS: Prostate Specific Antigen 1.74 ng/mL (<0.05-4.0)
== END 2024-10-28 14:31 | disposition home or self-care (01) ==
LOC: HO.HHCL 14:30
PROVIDERS: Nurse Practitioner Family; PCP Internal Medicine; Visit Provider Internal Medicine
DX: M1A.9XX0 Chronic gout, unspecified, without tophus (tophi) (principal); R33.9 Retention of urine, unspecified; R35.1 Nocturia
CPT/HCPCS: 36415; 84153; 84550; 85025; 85652

== ENCOUNTER 2025-01-22 09:22 | Outpatient (REF) | payer MEDICARE, MEDICAID, SELFPAY ==
--- OUTSIDE RECORDS SUMMARY | 2025-01-22 10:32 | XMS_ITS | Encounter Summary ---
Author Organization [employer] Address [address] [facility] [address] [place] [address] Care Team Providers Care Applied Psychology Professor Name Role Phone Preston Anderson MD Primary Care Prov ider Reason for Visit * Reason Onset Date Comments Call Back Request 11/23/2023 Encounter Details Date Type Department Care Team ([facility] st Contact Info) Description 11/23/[address] [facility] MEDICINE [address] [place] [address] Preston Anderson MD [address] [place] [address] Call Back Request Social History Tobacco Use Types Packs/Day Years Used Date Smoking Tobacco: Never Alcohol Use Standard Drinks/Week Comments Defer 0 (1 standard drink = 0.6 oz pur e alcohol) Depression Answer Date Recorded Patient Health Questionnaire-9 Score 0 09/29/2022 Housing Stability Answer Date Recorded What is your housing situation today? I have glenn lomeli 02/22/[address] you [...] AM EDT documented as of this encounter Miscellaneous Notes * Telephone Encounter - April Mueller RN - 11/23/2023 1:00 PM EDT Mychart message sent to call pain management to request status as they are placing the referral. 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 CHC MED & PEDS [address] [place] [address] Preston Anderson MD [address] [place] [address] documented as of this encounter Visit Diagnoses Not on filedocumented in this encounter Additional Health Concerns Assessment Noted Time PHQ-9 Depression Total Score: 0 09/30/19 23 10:43 AM EDT documented as of this encounter Care Teams Applied Psychology Professor Relationship Specialty Start Date End Date Preston Anderson MD [address] [place] [address] PCP - General Internal Medicine 09/28/19 documented as of this encounter
--- OUTSIDE RECORDS SUMMARY | 2025-01-22 10:32 | XMS_ITS | Encounter Summary ---
Author Organization [employer] Address [address] [facility] 7[address] [place] [address] Care Team Providers Care Dental Receptionist Name Role Phone Preston Anderson MD Primary Care Prov ider Encounter Details Date Type Department Care Team ([facility] st Contact Info) Description 06/11/2023 Telephone [facility] MED & PEDS [address] [place], [place] [phone] Preston Anderson MD [address] [place] [address] Social History Tobacco Use Types Packs/Day Years [...] as of this encounter Plan of Treatment Upcoming Encounters Date Type Department Care Team (Late st Contact Info) Description 02/02/2025 11:15 AM EDT Telemedicine [facility] MED & PEDS [address] [place] [address] Preston Anderson MD [address] [place] [address] documented as of this encounter Visit Diagnoses Not on filedocumented in this encounter Additional Health Concerns Assessment Noted Time PHQ-9 Depression Total Score: 0 09/30/19 23 10:43 AM EDT documented as of this encounter Care Teams Dental Receptionist Relationship Specialty Start Date End Date Preston Anderson MD [address] [place] [address] PCP - General Internal Medicine 09/28/19 documented as of this encounter
--- OUTSIDE RECORDS SUMMARY | 2025-01-22 10:32 | XMS_ITS | Clinical Summary ---
Author Organization [employer] Address [address] [facility] [address] [place] [address] Care Team Providers Care Dinkey Engine Firer Name Role Phone Preston Anderson MD Primary Care Prov ider Allergies No known active allergies Medications Multiple Vitamin (Multi-Vitamin) tablet Take 1 tablet by mouth in the morning. 07/05/19 22 Active psyllium (Metamucil Smooth Texture) 58.6 % powder Take 3.4 g by mouth continuously if needed. 11/25/19 22 Active gabapentin (Neurontin) 300 MG capsule Take 1 capsule (300 mg) by mouth in the morning. 90 capsule 3 09/30/19 23 Active sildenafil (Viagra) 50 MG tablet Take 1 tablet (50 mg) by mouth if needed each day for erectile dysfunction. 10 tablet 04/20/20 23 Active tamsulosin (Flomax) 0.4 MG 24 hr capsule Take 0.4 mg by mouth Once per day. Active triamcinolone (Kenalog) 0.1 % cream Apply topically if needed in the morning and at bedtime (pain and swelling). 30 g 5 12/12/19 24 Active atorvastatin (Lipitor) 40 MG tabletIndications: Mixed hyperlipidemia TAKE 1 TABLET BY MOUTH EVERY DAY IN THE MORNING 90 tablet 3 06/04/19 25 Active traZODone (Desyrel) 50 MG tablet TAKE 1 TABLET BY MOUTH AT BEDTIME 90 tablet 1 07/17/19 25 Active omeprazole (PriLOSEC) [address] capsule TAKE 1 CAPSULE (40 MG) BY MOUTH IN THE MORNING. EVERY DAY BEFORE MEALS 90 capsule 3 07/17/19 25 Active etodolac (Lodine) 300 MG capsuleIndications :Chronic gouty arthritis Take 1 capsule (300 mg) by mouth 2 times daily. 60 capsule 1 10/29/19 25 025 Active allopurinol (Zyloprim) 300 MG tablet Take 1 tablet (300 mg) by mouth Once per day. 30 tablet 11 12/03/19 25 026 Active metoprolol succinate XL (Toprol-XL) 100 MG 24 hr tablet TAKE 1 TABLET BY MOUTH EVERY DAY IN THE MORNING 90 tablet 1 12/05/19 25 Active hydroCHLOROthiazid e (HYDRODiuril) 25 MG tabletIndications: Benign hypertension TAKE 1 TABLET BY MOUTH EVERY DAY IN THE MORNING 90 tablet 1 12/05/19 25 Active Diclofenac Sodium 1 % gelIndications:Chr onic pain of left knee APPLY TO THE AFFECTED AREA 3 TIMES A DAY 100 g 12/05/19 25 Active lisinopril 20 MG tablet TAKE 1 TABLET BY MOUTH EVERY DAY IN THE MORNING 90 tablet 1 12/05/19 25 Active Active Problems Problem Noted Date Diagnosed Date Chronic pain syndrome 06/30/2024 Assessment & Plan (06/30/2024 10:20 AM EST): Patient will benefir from [employer] services, will call to be evalauted for services, he has limited mobility due to back issues Lumbar radiculopathy 06/30/2024 Assessment & Plan (06/30/2024 10:21 AM EST): Chronic back pain, will send order for shower chair and walker Decreased mobility 06/30/2024 Assessment & Plan (06/30/2024 10:21 AM EST): Requested DME will be sent Other insomnia 06/30/2024 Assessment & Plan (06/30/2024 10:22 AM EST): Patient has tried melatonin without improvement in symptoms, will start on trazodone, call back if not improving Pharmacologic therapy 04/20/2023 Assessment & Plan (04/20/2023 9:52 AM EST): Discussed pharmacogenetic test, current medications not contraindicated Screening for colon cancer 04/14/2023 Assessment & Plan (08/21/2023 9:07 AM EDT): Will send cologuard Assessment & Plan (04/14/2023 12:27 PM EST): Followed by seen on 02/2022 had a negative cologuard, due in 3 years Benign hypertension 03/16/2022 Assessment & Plan (06/30/2024 10:18 AM EST): Controlled, continue low sodium diet and exercise as tolerated, no changes in treatment will be made, new labs will be ordered Assessment & Plan (12/13/2023 9:18 AM EDT): Controlled, keep low sodium diet and exercise as tolerated, keep bp log, target <140/90 Assessment & Plan (08/21/2023 9:09 AM EDT): Controlled, continue current treatment, continue low sodium diet and exercise as tolerated, bp target <140/90 Assessment & Plan (04/20/2023 9:49 AM EST): Slightly above target, will discontinue vasotec and start lisinopril, encouraged low sodium diet and exercise as tolerated, follow up in 3 months Assessment & Plan (04/14/2023 12:25 PM EST): Controlled today was 113/77 with HR 89, results have maintained below 140/90, no changes will be made, reinforced low sodium diet Assessment & Plan (09/29/2022 10:05 PM EDT): Controlled, has been ranging below 140/90, reinforced low sodium diet and exercise as tolerated, no changes will be made, new labs ordered, will follow up in 3 months Chronic gouty arthritis 03/16/2022 Assessment & Plan (10/28/2024 2:15 PM EDT): Pt here for a sick visit Hx of previous episodes of gouty arthritis primarily affecting his foot Today's exam with evidence of podagra, likely due to gout, pt apparently has been using Allopurinol but the Indomethacin his PCP sent was not covered by his insurance. He is getting Etodolac instead On exam he has redness and swelling as well as tenderness to palpation right first MTT joint. Etiology: indicative of gout, doubt other etiologies but will check CBC, ESR and Plain films to rule out infectious etiologies Plan: Prednisone taper, Already on Allopurinol anEtodolac Plain films right foot, CBC,ESR, Uric Acid Follow up if no improvement F/u with PCP Assessment & Plan (06/30/2024 10:18 AM EST): Will send indomethacin, uric acid levels ordered Osteoarthritis of knee 03/16/2022 Gastroesophageal reflux disease without esophagi tis 03/16/2022 Assessment & Plan (04/20/2023 9:50 AM EST): On omeprazole, encouraged lifestyle modifications, will leave current therapy Hyperlipidemia 03/16/2022 Assessment & Plan (06/30/2024 10:19 AM EST): On atorvastatin 40mg, new labs ordered for guidance of therapy Assessment & Plan (12/13/2023 9:18 AM EDT): On atorvastatin 40mg, will order new labs for guidance of therapy Assessment & Plan (04/20/2023 9:51 AM EST): Continue atorvastatin last blood work resutls were stable Psoriasis 03/16/2022 Encounters Date Type Department Care Team Description 12/03/2024 Refill [facility] MED & PEDS [address] [place] [address] Preston Anderson MD Benign hypertension; Chronic pain of left knee 12/02/2024 11:30 AM EDT Office Visit [facility] P[facility] [address] [place] [address] Preston Anderson MD Acute idiopathic gout involving toe of right foot (Primary Dx); Dietary counseling; Exercise counseling 12/02/2024 Travel 10/30/2024 Results Follow-Up [facility] MEDICINE [address] [place] [address] Ayush Whitfield MD XR Foot 3+ Views Right 10/28/2024 1:40 PM EDT Office Visit [facility] W[facility] [address] [place] [address] Ayush Whitifeld MD Chronic gouty arthritis (Primary Dx) 10/28/2024 Orders Only GENERIC EXTERNAL DATA DEPARTMENT Provider, Generic External Data 10/28/2024 Travel 10/28/2024 Telephone [facility] MED & PEDS [address] [place] [address] Preston Anderson MD Nurse Triage from Last 3 Months Immunizations Immunization Administration Dates Next Due Influenza High-dose Quadriva lent Preservative Free 01/27/2022,03/03/2020 Influenza, High Dose Seasona l, Preservative Free 01/30/2019 Moderna Covid-19 Vaccine 12+ 04/16/2021,07/30/19 21,07/01/2020 Pneumococcal Conjugate PCV 13 03/03/2020 Pneumococcal Polysaccharide PPSV23 11/07/2021 Tdap 03/03/2020 Zoster, Recombinant 01/09/2022,11/07/2021 Social History Tobacco Use Types Packs/Day Years Used Date Smoking Tobacco: Never Tobacco Cessation:Counseling Given: Not Answered Alcohol Use Standard Drinks/Week Comments Defer 0 (1 standard drink = 0.6 oz pur e alcohol) Depression Answer Date Recorded Patient Health Questionnaire-9 Score 0 06/30/2024 Patient Health Questionnaire-9 Score 0 06/30/2024 Last PHQ-9: Questionnaire Data Not on file 0 06/30/2024 Housing Stability Answer Date Recorded What is your housing situation today? I have glenn lomeli 06/30/[address] you li ve. Do you have problems with any of the following? None of the above 06/30/2024 Food Insecurity Answer Date Recorded Within the past 12 months, y ou worried that your food would run out before you got money to buy more: Never True 06/30/2024 Within the past 12 months,th e food you bought just didn't last and you didn't have enough money to get more: Never True 06/2024 Transportation Answer Date Recorded In the past 12 months, has l ack of transportation kept you from medical appts, meetings, work or from getting things needed for daily living? No 06/30/2024 Utilities Answer Date Recorded In the past 12 months, has t he electric, gas, oil or water company threatened to shut off services in your home? No 06/30/2024 Depression Answer Date Recorded Patient Health Questionnaire-2 Score 0 06/30/2024 Internet Access Answer Date Recorded Internet Access Q1 Yes 06/30/2024 Internet Access Q2 Not on file 06/30/2024 Sex and Gender Information Value Date Recorded Sex Assigned at Male 02/27/2022 10:35 AM EDT Legal Sex Male 10:35 AM EDT Gender Identity Male 02/27/2022 10:35 AM EDT Sexual Orientation Choose not to disclose 2021 10:35 AM EDT Last Filed Vital Signs Vital Sign Reading Time Taken Comments Blood Pressure 142/90 12/02/2024 11:28 AM EDT Pulse 68 12/02/2024 11:28 AM EDT Temperature 37.1 C (98.7 F) 12/02/2024 11:28 AM EDT Respiratory Rate 16 12/02/2024 11:28 AM EDT Oxygen Saturation 99% 09/12/2023 3:53 PM EDT Inhaled Oxygen Concentration - - Weight 94.3 kg (208 lb) 12/02/2024 11:28 AM EDT Height 179.7 cm (5' 10.75 ) 12/02/2024 11:28 AM EDT Body Mass Index 29.22 12/02/2024 11:28 AM EDT Plan of Treatment Upcoming Encounters Date Type Department Care Team (Late st Contact Info) Description 02/02/2025 11:15 AM EDT Telemedicine [facility] MED & PEDS [address] [place] [address] Preston Anderson MD [address] [place] [address] Health Maintenance Due Date Last Done Comments Dental Prophylaxis 1950 Dental X-Ray: Bitewings 1950 Dental Oral Exam 03/22/2023 09/18/2022 RSV Patients and Patients Aged 60 years or older (1 - 1-dose 75+ series) 2023 COVID-19 Vaccine ( - season) 2024 04/16/2021, 07/29/2020, 07/01/2020 Influenza Vaccine (#1) 2024 , 01/27/2022, 03/03/2020, Additional history exists Alcohol/Substance Use Screening 06/30/2025 06/30/2024 Depression Screening 06/30/2025 06/30/2024, 07/01/19 25 SDOH Screening 06/30/2025 06/30/2024 Dental X-Ray: Full Mouth 09/19/2025 09/18/2022 Tobacco Screening 10/28/2025 10/28/2024 Lipid Panel 07/04/2029 07/04/2024, 11/28, 10/03/2022, Additional history exists DTaP/Tdap/Td Vaccines (2 - Td or Tdap) 03/03/2030 03/03/2020 Pneumococcal Vaccine: 50+ Years Completed 11/07/2021, 03/03/2020 Zoster Vaccines Completed 01/09/2022, 11/07/2021 FIT DNA/Cologuard Discontinued 02/20/2022 FOBT Discontinued 02/20/2022 Colorectal Cancer Screening Discontinued FIT Discontinued 03/01/2022 Hepatitis C Screening Completed 10/03/2022 CT Colonography Discontinued Colonoscopy Discontinued HIB Vaccines Aged Out No longer eligi ble based on patient's age to complete this topic HPV Vaccines Aged Out No longer eligi ble based on patient's age to complete this topic Hepatitis A Vaccines Aged Out No long er eligible based on patient's age to complete this topic Hepatitis B Vaccines Aged Out No long er eligible based on patient's age to complete this topic IPV Vaccines Aged Out No longer eligi ble based on patient's age to complete this topic Meningococcal B Vaccine Aged Out No l onger eligible based on patient's age to complete this topic Meningococcal Vaccine Aged Out No marisa ira eligible based on patient's age to complete this topic RSV under 20 months Aged Out No longe r eligible based on patient's age to complete this topic Rotavirus Vaccines Aged Out No longer eligible based on patient's age to complete this topic Sigmoidoscopy Discontinued Procedures Procedure Name Priority Date/Time Associated Diagnosis Comments PSA, TOTAL Routine 10/28/2024 2:37 PM EDT SED RATE BY MODIFIED WESTERGREN Routine 10/28/2024 2:37 PM EDT Chronic gouty arthritis URIC ACID Routine 10/28/2024 2:37 PM EDT Chronic gouty arthritis CBC WITH AUTO DIFFERENTIAL Routine 10/28/2024 2:37 PM EDT Chronic gouty arthritis XR FOOT 3+ VIEWS RIGHT Routine 1:41 PM EDT Chronic gouty arthritis LIPID PANEL, STANDARD Routine 07/04/2024 9:18 AM EST Benign hypertension HEPATITIS C AB W/REFL TO HCV RNA, QN, PCR Routine 10/03/2022 10:20 AM EDT Benign hypertension Mixed hyperlipidemia PANORAMIC RADIOGRAPHIC IMAGE Routine 09/18/2022 1:00 PM EDT COMPREHENSIVE ORAL EVALUATION - NEW OR ESTABLISHED PATIENT Routine 09/18/2022 1:00 PM EDT FECAL IMMUNOCHEMICAL Routine 03/01/2022 from Last 3 Months or Most Recently Relevant to Health Maintenance Results * (ABNORMAL) CBC auto differential (10/28/2024 2:37 PM EDT) White Blood Count 8.7 4.8 - 10.8 X10*3/uL [facility] Red Blood Count 6.13(H) 4.60 - 5.80 X10*6/uL [facility] Hemoglobin 16.1 14.0 - 18.0 g/dl [facility] Hematocrit 49.2 42.0 - 52.0 % [facility] Mean Corpuscular Volume 80.3 80.0 - 98.0 fL [facility] Mean Corpuscular Hemoglobin 26.3(L) 27.0 - 33.0 pg [facility] Mean Corpuscular HGB Conc 32.7 31.0 - 36.0 g/dl [facility] Red Cell Distribution Width 13.4 11.0 - 16.0 % [facility] Platelet Count 317 160 - 400 X10*3/uL [facility] Mean Platelet Volume 9.4 9.4 - 12.4 fL [facility] Neutrophils Percent Auto 62.3 45 - 73 % [facility] Imm Gran Pct Auto 0.3 0.0 - 0.4 % [facility] Lymphocytes Percent Auto 26.4 20 - 40 % [facility] Monocytes Percent Auto 8.1 2 - 11 % [facility] Eosinophils Percent Auto 2.3 0 - 4 % [facility] Basophils Percent Auto 0.6 0 - 2 % [facility] NRBC Pct Auto 0.0 0.0 - 0.2 /100WBC [facility] Neutrophils Absolute Auto 5.4 2.0 - 8.3 x10*3/uL [facility] Imm Gran Abs Auto 0.03 0.00 - 0.03 X10*3/uL [facility] Lymphocytes Absolute Auto 2.3 1.2 - 4.9 X10*3/uL [facility] Monocytes Absolute Auto 0.7 0.1 - 1.2 X10*3/uL [facility] Eosinophils Absolute Auto 0.2 0.0 - 0.4 X10*3/uL [facility] Basophils Absolute Auto 0.1 0.0 - 0.2 X10*3/uL [facility] NRBC Abs Auto 0.000 0.0 - 0.012 X10*3/uL [facility] Blood Venous blood specimen / Unknown 10/28/2024 2:37 PM EDT 10/28/2024 4:08 PM EDT us Ayush Rios MD LAB BLOOD ORDERABLES Final Result [facility] [address] [place] [address] [phone] * Sed Rate by Modified Asif (10/28/2024 2:37 PM EDT) Erythrocyte Sedimentation Rate 7 0 - 15 MM/HR [facility] Comment:Patients with polycy themia and many hemoglobin abnormalitiesmay have depressed sed rates whereas patients with anemiamay have elevated sed rates. Blood Venous blood specimen / Unknown 10/28/2024 2:37 PM EDT 10/28/2024 4:07 PM EDT Ayush Rios MD LAB BLOOD ORDERABLES Final Result Performing Organization Address [facility]/ZIP Co de Phone Number [facility] [address] [place], [place] [phone] * Uric acid (10/28/2024 2:37 PM EDT) Uric Acid 6.4 3.4 - 7.0 mg/dL [facility] Blood Venous blood specimen / Unknown 10/28/2024 2:37 PM EDT 10/28/2024 4:08 PM EDT Ayush Rios MD LAB BLOOD ORDERABLES Final Result Performing Organization Address [facility] Co de Phone Number [facility] [address] [place] [address] [phone] * PSA,Total (10/28/2024 2:37 PM EDT) Prostate Specific Antigen 1.74 <0.05 - 4.0 ng/mL [facility] Comment:PSA methodology: Abb diamond Alinity i ChemiluminescentMicroparticle Immunoassay (CMIA) 10/28/2024 2:37 PM EDT 10/28/2024 4:08 PM EDT Generic External Data Provider LAB BLOOD ORDERAB LES Final Result Performing Organization Address [facility] Co de Phone Number [facility] [address], [place] [phone] * XR Foot 3+ Views Right (10/28/2024 1:41 PM EDT) Anatomical Region Laterality Modality Lower Extremities, Foot Right [facility] 10/28/2024 1:41 PM EDT Narrative 10/28/2024 3:14 PM EDT [address] [address] XRay Report Signed Patient: Maximo Moura MR#: [id number] : 1950 Acct:[id number] Age/Sex: 74 / M ADM Date: 10/28/24 Loc: HO.HHCX Attending Dr: Ayush Poole MD Ordering Physician: Ayush Poole MD Date of Service: 10/28/24 Procedure(s): XR foot RT min 3V Accession Number(s): [id number] cc: Ayush Poole MD EXAMINATION: XR FOOT 3 OR MORE VIEWS RIGHT HISTORY: right foot pain. Chronic gouty arthritis. COMPARISON: There are no prior studies available for comparison. FINDINGS: Three views of the right foot are submitted. Osseous mineralization is normal. There is no fracture or dislocation. There are multiple erosions involving the 1st MTP joint with mild joint space narrowing. There is overlying soft tissue swelling. Findings are consistent with the given history of gout. The remaining joint spaces are maintained. XR/XR foot RT min 3V IMPRESSION: Findings consistent with gout involving the 1st MTP joint. Electronically signed by: Gen Doran MD 10/28/2024 03:11 PM EDT Dictated By: Gen Doran MD Signed By: <Electronically signed by Gen Doran MD in OV> 10/28/24 1511 DD/ 1341 TD/TT: 10/28/24 1400 Tile Conduit Layer: Procedure Note Zaidainterpreter, Image - 10/28/[address] [address] XRay Report Signed Patient: Maximo Moura LMR#: [id number] : 1950Acct:[id number] Age/Sex: 74 / MADM Date: 10/28/24 Loc: HO.HHCX Attending Dr: Ayush Poole MD Ordering Physician: Ayush Poole MD Date of Service: 10/28/24 Procedure(s): XR foot RT min 3V Accession Number(s): [id number] cc: Ayush Poole MD EXAMINATION: XR FOOT 3 OR MORE VIEWS RIGHT HISTORY: right foot pain. Chronic gouty arthritis. COMPARISON: There are no prior studies available for comparison. FINDINGS: Three views of the right foot are submitted. Osseous mineralization is normal. There is no fracture or dislocation. There are multiple erosions involving the 1st MTP joint with mild joint space narrowing. There is overlying soft tissue swelling. Findings are consistent with the given history of gout. The remaining joint spaces are maintained. XR/XR foot RT min 3V IMPRESSION: Findings consistent with gout involving the 1st MTP joint. Electronically signed by: Gen Doran MD 10/28/2024 03:11 PM EDT Dictated By: Gen Doran MD Signed By: <Electronically signed by Gen Doran MD in OV> 10/28/24 1511 DD/ 1341 TD/TT: 10/28/24 1400 Tile Conduit Layer: Ayush Rios MD IM XR PROCEDURES Fin al Result * (ABNORMAL) Lipid Panel, Standard (07/04/2024 9:18 AM EST) Triglycerides 108 <150 mg/dL [facility] Comment:Desirable Triglyceri de: less than 150 mg/dLBorderline High Triglyceride 150-199 mg/dLHigh Triglyceride: 200-499 mg/dLVery High Triglyceride: greater than or equal to 5OO mg/dL Cholesterol 144 <200 mg/dL [facility] Comment:Desirable Cholestero l: less than 200 mg/dLBorderline High Cholesterol: 200-239 mg/dLHigh Cholesterol: greater than 239 mg/dL LDL Cholesterol Calculated 84 <100 mg/dL [facility] Comment:Desirable LDL: less than 100 mg/dLNear Optimal/Above Optimal LDL: 110- 129 mg/dLBorderline High LDL: 130-159 mg/dLHigh LDL: 160-189 mg/dLVery High LDL: greater than or equal to 190 mg/dL HDL Cholesterol 39(L) >40 mg/dL [facility] Comment:Desirable HDL: great er than 40 mg/dL Note: This HDL assay may give artificially low results in patients with liver disease. Blood Venous blood specimen / Unknown 07/04/2024 9:18 AM EST 07/04/2024 2:13 PM EST Preston Harvey MD LAB BLOOD ORDERABL ES Final Result Performing Organization Address City/[facility]/ZIP Co de Phone Number [facility] [address] [place] [phone] * Hepatitis C Antibody with Reflex to HCV, RNA, Quantitative, Real-Time PCR (10/03/2022 10:20 AM EDT) Hepatitis C Antibody NON-REACT ALESHA NON-REACT ALESHA [facility] Index 0.11 <1.00 [facility] Comment: HCV antibody was non-reactive. There is no laboratory evidence of HCV infection. In most cases, no further action is required. However, if recent HCV exposure is suspected, a test for HCV RNA (test code 26136) is suggested. For additional information please refer to http://education.[employer]Image[employer]ision/faq/ITJ16x2 (This link is being provided for informational/ educational purposes only.) Blood Venous blood specimen / Unknown 10/03/2022 10:20 AM EDT 10/03/2022 10:21 AM EDT Narrative [facility] - 10/04/2022 8:18 AM EDT FASTING:YES FASTING: YES Preston Harvey MD LAB BLOOD ORDERABL ES Final Result Performing Organization Address City/[facility]/ZIP Co de Phone Number [facility] [address] [place] [address], [place] [phone] [facility] [address] [place] [phone] * Fecal immunochemical (03/01/2022) Fecal Immunoassay Test (External) cologuard Stool Rectal contents / Unknown [facility] Provider LAB BODY FLUIDS AND STOOL S ORDERABLES Final Result from Last 3 Months or Most Recently Relevant to Health [place] [id number] [facility] FULL (MEDICAID) Care Teams Dinkey Engine Firer Relationship Specialty Start Date End Date Preston Anderson MD [address] [place] [phone] PCP - General Internal Medicine 09/28/19
--- OUTSIDE RECORDS SUMMARY | 2025-01-22 10:32 | XMS_ITS | Encounter Summary ---
Author Organization [id number] Address [address] [facility] [address] [place] [address] Care Team Providers Care Site Acquisition Manager Name Role Phone Preston Anderson MD Primary Care Prov ider Reason for Visit * Reason Comments Med Refill Encounter Details Date Type Department Care Team ([facility] st Contact Info) Description 01/09/2024 Refill [facility]EDS [address] [place], [place] [phone] Preston Anderson MD [address] [place] [address] Chronic pain of left knee Social History Tobacco Use Types Packs/Day Years [...] Info) Description 02/02/2025 11:15 AM EDT Telemedicine [facility] MED [facility] P[facility]S [address] [place] [address] Preston Anderson MD [address] [place] [address] documented as of this encounter Visit Diagnoses Diagnosis Chronic pain of left knee documented in this encounter Additional Health Concerns Assessment Noted Time PHQ-9 Depression Total Score: 0 09/30/19 23 10:43 AM EDT documented as of this encounter Care Teams Site Acquisition Manager Relationship Specialty Start Date End Date Preston Anderson MD [address] [place] [address] PCP - General Internal Medicine 09/28/19 documented as of this encounter
--- OUTSIDE RECORDS SUMMARY | 2025-01-22 10:32 | XMS_ITS | Encounter Summary ---
Author Organization [employer] Address [address] [facility] [address] [place] [address] Care Team Providers Care Refinery Operator Assistant Name Role Phone Preston Anderson MD Primary Care Prov ider Reason for Visit * Reason Comments Med Change Request Encounter Details Date Type Department Care Team ([facility] st Contact Info) Description 07/27/2024 Refill [facility] [address] [place], [place] [phone] Preston Anderson MD [address] [place] [address] Social History Tobacco Use Types Packs/Day Years [...] Upcoming Encounters Date Type Department Care Team ([facility] st Contact Info) Description 02/02/2025 11:15 AM EDT Telemedicine [facility] [address] [place] [address] Preston Anderson MD [address] [place] [address] documented as of this encounter Visit Diagnoses Not on filedocumented in this encounter Additional Health Concerns Assessment Noted Time PHQ-9 Depression Total Score: 0 07/01/19 25 9:49 AM EST documented as of this encounter Care Teams Refinery Operator Assistant Relationship Specialty Start Date End Date Preston Anderson MD [address] [place] [address] PCP - General Internal Medicine 09/28/19 documented as of this encounter
--- OUTSIDE RECORDS SUMMARY | 2025-01-22 10:33 | XMS_ITS | Encounter Summary ---
Author Organization [employer] Address [address] [facility] [address] [place] [address] Care Team Providers Care Chain Mortiser Operator Name Role Phone Preston Anderson MD Primary Care Prov ider Reason for Visit * Reason Comments Med Refill Encounter Details Date Type Department Care Team ([facility] st Contact Info) Description 01/04/2024 Refill [facility] [address] [place], [place] [phone] Preston Anderson MD [address] [place] [address] Chronic pain of left knee Social History [...] Info) Description 02/02/2025 11:15 AM EDT Telemedicine [facility] [address] [place] [address] Preston Anderson MD [address] [place] [address] documented as of this encounter Visit Diagnoses Diagnosis Chronic pain of left knee documented in this encounter Additional Health Concerns Assessment Noted Time PHQ-9 Depression Total Score: 0 09/30/19 23 10:43 AM EDT documented as of this encounter Care Teams Chain Mortiser Operator Relationship Specialty Start Date End Date Preston Anderson MD [address] [place] [address] PCP - General Internal Medicine 09/28/19 documented as of this encounter
[2025-01-22 15:02] LABS: Uric Acid 6.3 mg/dL (3.4-7.0)
== END 2025-01-22 09:23 | disposition home or self-care (01) ==
LOC: HO.CHCLDS 09:22
PROVIDERS: Visit Provider Internal Medicine
DX: M10.071 Idiopathic gout, right ankle and foot (principal)
CPT/HCPCS: 36415; 84550